=== PATIENT | female | born 1955 | race Caucasian/White ===

== ENCOUNTER 2017-04-20 07:45 | Emergency (ER) | payer OTHER, MEDICAID ==
[~2017-04-20] VITALS: Ht 157.5 cm; Wt 85.7 kg
[~2017-04-20 07:45] MED LIST: BACL-63 PO; CLOP75TA41 PO; GABA-497 PO; GLIP-116 PO; INSUINJ2 SC; MEC25T PO; MONT10TA23 PO; RANI75TA PO; ROSU20TA14 PO; SITA50TA28 PO; SUMA50TA2; TOPI25TA32 PO
[2017-04-20 08:00] VITALS: BP 153/79
[2017-04-20] MEDS ORDERED: PROMETHAZINE HCL 25 MG/ML 1ML IM ONE (09:45)
[2017-04-20] MEDS ORDERED: MORPHINE SULFATE 10 MG/ML INJ 1ML SDV IM ONE (09:45)
== END 2017-04-20 10:55 | disposition home or self-care (01) ==
LOC: EDBD 07:45 → ER 07:45
DX: S82.301A Unspecified fracture of lower end of right tibia, initial encounter for closed fracture (principal); S16.1XXA Strain of muscle, fascia and tendon at neck level, initial encounter; S29.011A Strain of muscle and tendon of front wall of thorax, initial encounter; J45.909 Unspecified asthma, uncomplicated; E11.9 Type 2 diabetes mellitus without complications; I10 Essential (primary) hypertension; G89.29 Other chronic pain; M54.5 Low back pain; Z79.4 Long term (current) use of insulin; Z79.899 Other long term (current) drug therapy; Z88.1 Allergy status to other antibiotic agents; Z88.6 Allergy status to analgesic agent; Z88.8 Allergy status to other drugs, medicaments and biological substances; V43.62XA Car passenger injured in collision with other type car in traffic accident, initial encounter; Y93.89 Activity, other specified; Y99.8 Other external cause status; Y92.410 Unspecified street and highway as the place of occurrence of the external cause
CPT/HCPCS: 71101; 72040; 73610; 96372; 99284; J2270; J2550

== ENCOUNTER 2022-08-27 09:19 | Inpatient (IN) | payer OTHER, MEDICAID ==
[~2022-08-27] VITALS: Ht 157.5 cm; Wt 72.0 kg
[~2022-08-27 09:19] MED LIST changes: -CLOP75TA41 PO; +CLOP75TA70 PO; -GABA-497 PO; +GABA300C10 PO; -GLIP-116 PO; +GLIP10TA9 PO; -TOPI25TA32 PO; +TOPI25TA43 PO
[2022-08-27 11:02] LABS: Basophils # (auto) 0.1 10 ^3/uL (0-0.2); Basophils % (auto) 0.9 % (0.0-2.0); Eosinophils # (auto) 0.3 10 ^3/uL (0-0.8); Eosinophils % (auto) 4.3 % (0.0-7.0); Hematocrit 34.7 % (36.0-46.0); Hemoglobin 11.8 g/dL (12.2-16.2); Lymphocytes # (auto) 1.3 10 ^3/uL (0.4-5.4); Lymphocytes % (auto) 19.2 % (10.0-50.0); Mean Corpuscular Hemoglobin 29.7 pg (28.0-32.0); Mean Corpuscular Hgb Conc. 33.9 g/dL (32.0-36.0); Mean Corpuscular Volume 87.5 fL (80.0-100.0); Monocytes # (auto) 0.4 10 ^3/uL (0-1.3); Monocytes % (auto) 5.8 % (0.0-12.0); Neutrophils # (auto) 4.8 10 ^3/uL (1.6-8.6); Neutrophils % (auto) 69.8 % (37.0-80.0); Red Blood Cells 3.96 10^6/uL (4.0-5.20); Red Cell Distribution Width 13.2 % (11.8-14.3); White Blood Cell 6.9 10^3/uL (4.4-10.8)
[2022-08-27 11:27] LABS: Albumin 3.7 g/dL (3.4-5.0); BUN/Creatinine Ratio 19.5; Bilirubin, Total 0.2 mg/dL (0.2-1.0); Calcium 9.7 mg/dL (8.5-10.1); Magnesium 2.5 mg/dL (1.6-2.6); Potassium 3.9 mmol/L (3.5-5.1); Total Protein 6.6 g/dL (6.4-8.2)
[2022-08-27 12:40] LABS: Urine Bacteria NONE SEEN /hpf (None Seen); Urine Blood Negative /uL (Negative); Urine Hyaline Cast FEW /lpf (0 - 2); Urine Specific Gravity 1.017 (1.001-1.035); Urine WBC <1 /hpf (0 - 5)
[2022-08-27] MEDS ORDERED: LACTATED RINGER'S 500 ML IV ONE (13:30)
[2022-08-27] MEDS ORDERED: MORPHINE SULFATE INJ 2 MG/ml SYRG IV PRN (15:45)
[2022-08-27] MEDS ORDERED: NITROGLYCERIN 0.4 MG SL TAB SL PRN (15:45)
[2022-08-27] MEDS ORDERED: DEXTROSE (50%) 50ML SYRG IV PRN (16:00)
[2022-08-27] MEDS: SODIUM CHLORIDE 0.9% 1,000 ML IV SCH (16:00)
[2022-08-27] MEDS ORDERED: ALBUTEROL SULF 2.5 MG/0.5ML(0.5%) NEB SOLN NEB PRN (16:15)
[2022-08-27] MEDS ORDERED: IPRATROPIUM BROM 0.5 MG/2.5ML INH SOL NEB PRN (16:15)
[2022-08-27 16:30] LABS: Cholesterol 165 mg/dL (< 200); HDL Cholesterol 48 mg/dL (40-59); LDL Cholesterol 94 mg/dL (< 100); Triglycerides 199 mg/dL (< 150)
[2022-08-27] MEDS: ACCU-CHEK COMFORT CURVE STRIP VI SCH ×2 (17:00→22:00)
[2022-08-27] MEDS: InsuLIN REG 1unit/0.01ml Soln (100units/ml) SC SCH ×2 (17:00→22:00)
[2022-08-27 17:48] VITALS: BP 105/59
[2022-08-27] MEDS ORDERED: ALBUTEROL SULF 2.5 MG/0.5ML(0.5%) NEB SOLN NEB SCH (18:00)
[2022-08-27] MEDS: IPRATROPIUM BROM 0.5 MG/2.5ML INH SOL NEB SCH (19:29)
[2022-08-27] MEDS ORDERED: ALBUTEROL SULF 2.5 MG/0.5ML(0.5%) NEB SOLN ONE (19:53)
[2022-08-27 20:26] LABS: Alcohol, Urine < 3.0 mg/dL (0-10); Amphetamine Screen, Urine NEGATIVE (NEGATIVE); Barbiturate Scree,Urine NEGATIVE (NEGATIVE); Benzodiazephine Screen, Urine NEGATIVE (NEGATIVE); Cannabinoid Screen, Urine NEGATIVE (NEGATIVE); Cocaine Screen, Urine NEGATIVE (NEGATIVE); Opiate Scree,Urine NEGATIVE (NEGATIVE); Phencyclidine Screen, Urine NEGATIVE (NEGATIVE)
[2022-08-27] MEDS ORDERED: LORazepam 2MG/ML-1ML VIAL IV PRN (21:00)
[2022-08-27] MEDS ORDERED: CLOPIDOGREL BISULFATE 75 MG TAB PO ONE (21:00)
[2022-08-27] MEDS ORDERED: ATORVASTATIN 20 MG TAB PO SCH (22:00)
[2022-08-27 22:55] LABS: Folate (Folic Acid) > 24.00 ng/mL (5.38-24)
[2022-08-28] MEDS ORDERED: ACETAMINOPHEN 325 MG TAB PO PRN (04:30)
[2022-08-28] MEDS: SODIUM CHLORIDE 0.9% 1,000 ML IV SCH (05:23)
[2022-08-28] MEDS: IPRATROPIUM BROM 0.5 MG/2.5ML INH SOL NEB SCH ×2 (06:28→11:28)
[2022-08-28] MEDS: ACCU-CHEK COMFORT CURVE STRIP VI SCH ×3 (06:56→18:05)
[2022-08-28] MEDS: InsuLIN REG 1unit/0.01ml Soln (100units/ml) SC SCH ×3 (06:56→18:04)
[2022-08-28] MEDS ORDERED: ENOXAPARIN SOD 30 MG/0.3 ML SYRINGE SC SCH (10:00)
[2022-08-28 11:24] LABS: BUN/Creatinine Ratio 21.1; Calcium 9.1 mg/dL (8.5-10.1); Potassium 3.5 mmol/L (3.5-5.1)
[2022-08-28 14:14] LABS: Basophils # (auto) 0.1 10 ^3/uL (0-0.2); Eosinophils # (auto) 0.2 10 ^3/uL (0-0.8); Eosinophils % (auto) 4.5 % (0.0-7.0); Hematocrit 33.8 % (36.0-46.0); Hemoglobin 11.5 g/dL (12.2-16.2); Lymphocytes # (auto) 1.3 10 ^3/uL (0.4-5.4); Lymphocytes % (auto) 26.5 % (10.0-50.0); Mean Corpuscular Hemoglobin 30.3 pg (28.0-32.0); Mean Corpuscular Hgb Conc. 33.9 g/dL (32.0-36.0); Mean Corpuscular Volume 89.3 fL (80.0-100.0); Monocytes # (auto) 0.3 10 ^3/uL (0-1.3); Red Blood Cells 3.79 10^6/uL (4.0-5.20); Red Cell Distribution Width 13.1 % (11.8-14.3)
[2022-08-28 16:00] VITALS: BP 121/78
[2022-08-29] MEDS ORDERED: ENOXAPARIN SOD 40 MG/0.4 ML SYRINGE SC SCH (10:00)
== END 2022-08-28 18:00 | disposition home or self-care (01) | DRG 149 ==
LOC: ER 09:19 → TELE 15:47
PROVIDERS: ADMIT Registered Nurse; ATTEND Internal Medicine
DX: R42 Dizziness and giddiness (principal); F02.84 Dementia in other diseases classified elsewhere, unspecified severity, with anxiety; I13.0 Hypertensive heart and chronic kidney disease with heart failure and stage 1 through stage 4 chronic kidney disease, or unspecified chronic kidney disease; N17.9 Acute kidney failure, unspecified; E78.5 Hyperlipidemia, unspecified; Z20.822 Contact with and (suspected) exposure to COVID-19; E11.22 Type 2 diabetes mellitus with diabetic chronic kidney disease; E66.9 Obesity, unspecified; Z68.29 Body mass index [BMI] 29.0-29.9, adult; F41.0 Panic disorder [episodic paroxysmal anxiety]; G30.9 Alzheimer's disease, unspecified; G43.909 Migraine, unspecified, not intractable, without status migrainosus; I50.9 Heart failure, unspecified; J44.9 Chronic obstructive pulmonary disease, unspecified; M79.7 Fibromyalgia; N18.30 Chronic kidney disease, stage 3 unspecified; Z79.4 Long term (current) use of insulin; Z79.82 Long term (current) use of aspirin; Z79.899 Other long term (current) drug therapy; Z81.8 Family history of other mental and behavioral disorders; Z88.1 Allergy status to other antibiotic agents; Z86.73 Personal history of transient ischemic attack (TIA), and cerebral infarction without residual deficits
CPT/HCPCS: 36415; 70450; 70551; 71045; 72125; 73564; 80048; 80053; 80061; 80307; 81001; 82607; 82746; 82962; 83036; 83735; 83880; 84443; 84484; 85025; 87426; 93005; 93306; 93886; 94640; G0378

== ENCOUNTER → 2022-09-20 | Outpatient (CLI) | payer OTHER, MEDICAID | END | disposition home or self-care (01) | LOC: XYW 12:23 | PROVIDERS: ATTEND Internal Medicine | DX: I35.1 Nonrheumatic aortic (valve) insufficiency (principal); I31.39 Other pericardial effusion (noninflammatory); I50.9 Heart failure, unspecified; I51.7 Cardiomegaly | CPT/HCPCS: 93306 ==

== ENCOUNTER 2022-11-06 13:22 | Inpatient (IN) | payer OTHER, MEDICAID ==
[~2022-11-06] VITALS: Ht 157.5 cm; Wt 76.0 kg
[2022-11-06 17:00] VITALS: BP 140/58
[2022-11-06] MEDS ORDERED: FENO160T8 PO (17:01)
[2022-11-06] MEDS ORDERED: SCOP1DIS9 TD (17:01)
[2022-11-06] MEDS ORDERED: FEBU40TA PO (17:01)
[2022-11-06] MEDS ORDERED: METH500T22 PO (17:01)
[2022-11-06] MEDS ORDERED: PANC3600 PO (17:01)
[2022-11-06] MEDS ORDERED: LORA0.5T20 PO (17:01)
[2022-11-06] MEDS ORDERED: INSU100I44 SC (17:01)
[2022-11-06] MEDS ORDERED: DICY20TA PO (17:01)
[2022-11-06] MEDS ORDERED: GABA300C10 PO (17:01)
[2022-11-06] MEDS ORDERED: AMIT25TA12 PO (17:01)
[2022-11-06] MEDS ORDERED: IPRIH IN (17:01)
[2022-11-06] MEDS ORDERED: NYST150P2 XX (17:01)
[2022-11-06] MEDS ORDERED: MONT-8 PO (17:01)
[2022-11-06] MEDS ORDERED: MIDO5TAB3 PO (17:01)
[2022-11-06] MEDS ORDERED: TOPI1CAP24 PO (17:01)
[2022-11-06] MEDS ORDERED: ONDA-155 PO (17:01)
[2022-11-06] MEDS ORDERED: DONE5TAB80 PO (17:01)
[2022-11-06] MEDS ORDERED: HYDR200T36 PO (17:01)
[2022-11-06] MEDS ORDERED: TRAM50TA2 PO (17:01)
[2022-11-06] MEDS ORDERED: TORS5TAB8 PO (17:01)
[2022-11-06] MEDS ORDERED: FOLI1TAB6 PO (17:01)
[2022-11-06] MEDS ORDERED: DULA1INJ SC (17:01)
[2022-11-06] MEDS ORDERED: MAGN241.4 GT (17:03)
[2022-11-06] MEDS ORDERED: TORS20TA19 PO (17:03)
[2022-11-06] MEDS ORDERED: ACET1CAP14 PO (17:03)
[2022-11-06] MEDS ORDERED: PANTOPRAZOLE 40 MG/10 ML VIAL INJ IV ONE (17:15)
[2022-11-06] MEDS ORDERED: MORPHINE SULFATE INJ 2 MG/ml SYRG IV PRN (17:15)
[2022-11-06] MEDS ORDERED: NITROGLYCERIN 0.4 MG SL TAB SL PRN (17:15)
[2022-11-06] MEDS ORDERED: DEXTROSE (50%) 50ML SYRG IV PRN (17:30)
[2022-11-06] MEDS ORDERED: InsuLIN REG 1unit/0.01ml Soln (100units/ml) SC SCH (18:00)
[2022-11-06] MEDS: ACETAMINOPHEN 325 MG TAB PO PRN (18:33)
[2022-11-06 18:35] LABS: Basophils # (auto) 0 10 ^3/uL (0-0.2); Basophils % (auto) 0.7 % (0.0-2.0); Eosinophils # (auto) 0.3 10 ^3/uL (0-0.8); Eosinophils % (auto) 4.7 % (0.0-7.0); Hematocrit 38.6 % (36.0-46.0); Hemoglobin 12.6 g/dL (12.2-16.2); Lymphocytes # (auto) 1.6 10 ^3/uL (0.4-5.4); Lymphocytes % (auto) 28.1 % (10.0-50.0); Mean Corpuscular Hemoglobin 29.2 pg (28.0-32.0); Mean Corpuscular Hgb Conc. 32.7 g/dL (32.0-36.0); Mean Corpuscular Volume 89.1 fL (80.0-100.0); Monocytes # (auto) 0.5 10 ^3/uL (0-1.3); Monocytes % (auto) 7.9 % (0.0-12.0); Neutrophils # (auto) 3.3 10 ^3/uL (1.6-8.6); Neutrophils % (auto) 58.6 % (37.0-80.0); Nucleated Red Blood Cells % 0.1 %; Red Blood Cells 4.33 10^6/uL (4.0-5.20); Red Cell Distribution Width 13.2 % (11.8-14.3); White Blood Cell 5.7 10^3/uL (4.4-10.8)
[2022-11-06 19:04] LABS: Magnesium 2.6 mg/dL (1.6-2.6); Potassium 3.9 mmol/L (3.5-5.1)
[2022-11-06 19:07] LABS: BUN/Creatinine Ratio 21.2 (10.0-20.0); Bilirubin, Total 0.2 mg/dL (0.2-1.0); Total Protein 7.1 g/dL (6.4-8.2)
[2022-11-06 19:08] LABS: Cholesterol 148 mg/dL (< 200)
[2022-11-06 19:11] LABS: HDL Cholesterol 52 mg/dL (40-59); LDL Cholesterol 74 mg/dL (< 100); Triglycerides 143 mg/dL (< 150)
[2022-11-06] MEDS ORDERED: ACETAMINOPHEN 500 MG TAB PO SCH (19:30)
[2022-11-06] MEDS: LACTATED RINGER'S 1,000 ML IV SCH (19:39)
[2022-11-06] MEDS: ACCU-CHEK COMFORT CURVE STRIP VI SCH (19:39)
[2022-11-06 20:17] LABS: INR 0.99 (0.9-1.15); Partial Thromboplastin Time 24.2 sec (24.6-33.4)
[2022-11-06] MEDS: ACETAMINOPHEN 500 MG TAB PO SCH (21:46)
[2022-11-06 22:00] VITALS: BP 113/40
[2022-11-07] VITALS (10 sets, daily range): BP systolic 120–144; BP diastolic 57–69
[2022-11-07] MEDS: ACCU-CHEK COMFORT CURVE STRIP VI SCH ×4 (00:45→17:07)
[2022-11-07] MEDS: GABAPENTIN 300 MG CAP PO SCH ×5 (00:50→22:09)
[2022-11-07] MEDS: ACETAMINOPHEN 500 MG TAB PO SCH ×4 (06:05→22:09)
[2022-11-07 06:19] LABS: Basophils # (auto) 0.1 10 ^3/uL (0-0.2); Basophils % (auto) 1.1 % (0.0-2.0); Eosinophils # (auto) 0.3 10 ^3/uL (0-0.8); Eosinophils % (auto) 5.1 % (0.0-7.0); Hematocrit 36.5 % (36.0-46.0); Hemoglobin 12.1 g/dL (12.2-16.2); Lymphocytes # (auto) 1.3 10 ^3/uL (0.4-5.4); Lymphocytes % (auto) 24.3 % (10.0-50.0); Mean Corpuscular Hemoglobin 29.8 pg (28.0-32.0); Mean Corpuscular Hgb Conc. 33.2 g/dL (32.0-36.0); Mean Corpuscular Volume 89.5 fL (80.0-100.0); Monocytes # (auto) 0.4 10 ^3/uL (0-1.3); Neutrophils # (auto) 3.5 10 ^3/uL (1.6-8.6); Neutrophils % (auto) 62.5 % (37.0-80.0); Red Blood Cells 4.08 10^6/uL (4.0-5.20); Red Cell Distribution Width 13.2 % (11.8-14.3); White Blood Cell 5.5 10^3/uL (4.4-10.8)
[2022-11-07 06:25] LABS: Potassium 4.2 mmol/L (3.5-5.1)
[2022-11-07 06:35] LABS: Albumin 3.8 g/dL (3.4-5.0); Bilirubin, Total 0.3 mg/dL (0.2-1.0); Calcium 9.8 mg/dL (8.5-10.1); Total Protein 6.7 g/dL (6.4-8.2)
[2022-11-07] MEDS ORDERED: ONDANSETRON HCL 4 MG/2 ML VIAL IV PRN (07:00)
[2022-11-07] MEDS: ACETAMINOPHEN 325 MG TAB PO PRN (08:45)
[2022-11-07] MEDS: PANTOPRAZOLE 40 MG/10 ML VIAL INJ IV SCH (08:46)
[2022-11-07] MEDS: LACTATED RINGER'S 1,000 ML IV SCH (09:00)
[2022-11-07] MEDS ORDERED: BUPIVACAINE HCL 50 ML ONE (10:57)
[2022-11-07] MEDS ORDERED: MIDAZOLAM HCL 2MG/2ML 2ml VIAL (1mg/ml) ONE ×2 (11:10→11:27)
[2022-11-07] MEDS ORDERED: fentaNYL CITRATE 100 MCG/2 ML VL ONE (11:10)
[2022-11-07] MEDS ORDERED: HYDROmorphone HCL 2 MG/ML VL/or syr ONE (11:27)
[2022-11-07 14:12] LABS: Basophils # (auto) 0.1 10 ^3/uL (0-0.2); Basophils % (auto) 1.2 % (0.0-2.0); Eosinophils # (auto) 0.3 10 ^3/uL (0-0.8); Eosinophils % (auto) 4.8 % (0.0-7.0); Hemoglobin 12.5 g/dL (12.2-16.2); Lymphocytes # (auto) 1.5 10 ^3/uL (0.4-5.4); Lymphocytes % (auto) 26.5 % (10.0-50.0); Mean Corpuscular Hemoglobin 29.6 pg (28.0-32.0); Mean Corpuscular Hgb Conc. 32.1 g/dL (32.0-36.0); Mean Corpuscular Volume 92.4 fL (80.0-100.0); Monocytes # (auto) 0.4 10 ^3/uL (0-1.3); Monocytes % (auto) 7.4 % (0.0-12.0); Neutrophils # (auto) 3.3 10 ^3/uL (1.6-8.6); Neutrophils % (auto) 60.1 % (37.0-80.0); Nucleated Red Blood Cells % 0.3 %; Red Blood Cells 4.22 10^6/uL (4.0-5.20); Red Cell Distribution Width 13.3 % (11.8-14.3); White Blood Cell 5.5 10^3/uL (4.4-10.8)
[2022-11-07 14:41] LABS: Albumin 3.6 g/dL (3.4-5.0); Calcium 9.5 mg/dL (8.5-10.1); Potassium 4.2 mmol/L (3.5-5.1)
[2022-11-07 14:44] LABS: BUN/Creatinine Ratio 20.2 (10.0-20.0); Bilirubin, Total 0.2 mg/dL (0.2-1.0); Total Protein 6.8 g/dL (6.4-8.2)
[2022-11-07 17:22] LABS: Urine Bacteria NONE SEEN /hpf (None Seen); Urine Blood Negative /uL (Negative); Urine Specific Gravity 1.014 (1.001-1.035); Urine WBC <1 /hpf (0 - 5)
[2022-11-08] MEDS: ACCU-CHEK COMFORT CURVE STRIP VI SCH ×4 (01:14→17:47)
[2022-11-08 05:00] VITALS: BP 120/63
[2022-11-08] MEDS: ACETAMINOPHEN 500 MG TAB PO SCH ×4 (05:58→21:54)
[2022-11-08] MEDS: GABAPENTIN 300 MG CAP PO SCH ×4 (05:58→21:53)
[2022-11-08 06:34] LABS: Basophils # (auto) 0 10 ^3/uL (0-0.2); Basophils % (auto) 0.8 % (0.0-2.0); Eosinophils # (auto) 0.3 10 ^3/uL (0-0.8); Eosinophils % (auto) 4.6 % (0.0-7.0); Hematocrit 36.4 % (36.0-46.0); Hemoglobin 12.1 g/dL (12.2-16.2); Lymphocytes # (auto) 1.2 10 ^3/uL (0.4-5.4); Lymphocytes % (auto) 21.7 % (10.0-50.0); Mean Corpuscular Hemoglobin 30.1 pg (28.0-32.0); Mean Corpuscular Hgb Conc. 33.3 g/dL (32.0-36.0); Mean Corpuscular Volume 90.3 fL (80.0-100.0); Monocytes # (auto) 0.5 10 ^3/uL (0-1.3); Monocytes % (auto) 8.7 % (0.0-12.0); Neutrophils # (auto) 3.6 10 ^3/uL (1.6-8.6); Neutrophils % (auto) 64.2 % (37.0-80.0); Nucleated Red Blood Cells % 0.1 %; Red Blood Cells 4.03 10^6/uL (4.0-5.20); Red Cell Distribution Width 12.9 % (11.8-14.3); White Blood Cell 5.6 10^3/uL (4.4-10.8)
[2022-11-08 07:01] LABS: Calcium 9.6 mg/dL (8.5-10.1); Magnesium 2.3 mg/dL (1.6-2.6); Potassium 4.2 mmol/L (3.5-5.1)
[2022-11-08 08:00] VITALS: BP 134/59
[2022-11-08 08:50] VITALS: BP 134/59
[2022-11-08] MEDS: PANTOPRAZOLE 40 MG/10 ML VIAL INJ IV SCH (09:16)
[2022-11-08 13:00] VITALS: BP 122/53
[2022-11-08] MEDS ORDERED: TORS20TA19 PO (13:07)
[2022-11-08] MEDS ORDERED: AMIT25TA12 PO (13:07)
[2022-11-08] MEDS ORDERED: METH500T22 PO (13:07)
[2022-11-08] MEDS ORDERED: IPRIH INH (13:07)
[2022-11-08] MEDS ORDERED: GABA300C10 PO ×3 (13:07)
[2022-11-08] MEDS ORDERED: UBRO100T2 PO (13:07)
[2022-11-08] MEDS ORDERED: FENO134C16 PO (13:07)
[2022-11-08] MEDS ORDERED: PANC3600 PO (13:07)
[2022-11-08] MEDS ORDERED: TRIA0.1P17 TOP (13:07)
[2022-11-08] MEDS ORDERED: VENL150C58 PO (13:07)
[2022-11-08] MEDS ORDERED: IPRA0.00 IN (13:07)
[2022-11-08] MEDS ORDERED: MID10T PO (13:07)
[2022-11-08] MEDS ORDERED: LORA-622 PO (13:07)
[2022-11-08] MEDS ORDERED: PROBCAP12 PO (13:07)
[2022-11-08] MEDS ORDERED: POM PO (13:57)
[2022-11-08] MEDS ORDERED: POM TOP (13:57)
[2022-11-08 16:48] VITALS: BP 143/58
[2022-11-08] MEDS ORDERED: MECL-111 PO (17:13)
[2022-11-08] MEDS: DICLOFENAC SODIUM 1% GEL TOP SCH ×2 (18:00→21:54)
[2022-11-08] MEDS: AMITRIPTYLINE HCL 25 MG TAB PO SCH (21:53)
[2022-11-08 22:00] VITALS: BP 148/61
[2022-11-09] MEDS: ACCU-CHEK COMFORT CURVE STRIP VI SCH ×5 (00:08→23:52)
[2022-11-09 05:00] VITALS: BP 131/53
[2022-11-09] MEDS: DICLOFENAC SODIUM 1% GEL TOP SCH ×4 (06:01→21:50)
[2022-11-09] MEDS: ACETAMINOPHEN 500 MG TAB PO SCH ×4 (06:01→21:48)
[2022-11-09] MEDS: GABAPENTIN 300 MG CAP PO SCH ×4 (06:01→21:48)
[2022-11-09 08:55] VITALS: BP 134/55
[2022-11-09] MEDS: PANTOPRAZOLE 40 MG/10 ML VIAL INJ IV SCH (10:22)
[2022-11-09] MEDS: QULIPTA 60 MG PO SCH (10:23)
[2022-11-09] MEDS: hydrOXYchloroQUINE SULFATE 200 MG TAB PO SCH (10:24)
[2022-11-09] MEDS: VENLAFAXINE HCL 37.5mg XR cap PO SCH (10:25)
[2022-11-09] MEDS: ALPRAZolam 0.5 MG TAB PO PRN ×2 (10:26→23:45)
[2022-11-09 12:49] VITALS: BP 136/56
[2022-11-09 17:11] VITALS: BP 134/59
[2022-11-09] MEDS: CREON DR 36,000 UNIT CAPSULE PO SCH (18:00)
[2022-11-09] MEDS: AMITRIPTYLINE HCL 25 MG TAB PO SCH (21:48)
[2022-11-09 22:00] VITALS: BP 130/53
[2022-11-09] MEDS ORDERED: CREON DR 36,000 UNIT CAPSULE PO SCH (22:00)
[2022-11-10 05:00] VITALS: BP 131/48
[2022-11-10] MEDS: GABAPENTIN 300 MG CAP PO SCH ×2 (05:26→11:50)
[2022-11-10] MEDS: ACETAMINOPHEN 500 MG TAB PO SCH ×2 (05:26→11:50)
[2022-11-10] MEDS: DICLOFENAC SODIUM 1% GEL TOP SCH ×2 (05:27→11:50)
[2022-11-10] MEDS: ACCU-CHEK COMFORT CURVE STRIP VI SCH ×2 (05:27→11:50)
[2022-11-10 08:10] VITALS: BP 123/57
[2022-11-10] MEDS: CREON DR 36,000 UNIT CAPSULE PO SCH ×2 (09:26→11:50)
[2022-11-10] MEDS: hydrOXYchloroQUINE SULFATE 200 MG TAB PO SCH (09:27)
[2022-11-10] MEDS: QULIPTA 60 MG PO SCH (09:27)
[2022-11-10] MEDS: PANTOPRAZOLE 40 MG/10 ML VIAL INJ IV SCH (09:27)
[2022-11-10] MEDS: VENLAFAXINE HCL 37.5mg XR cap PO SCH (09:32)
[2022-11-10 12:15] VITALS: BP 127/62
== END 2022-11-10 13:30 | disposition short-term general hospital (02) | DRG 315 ==
LOC: XYW 13:22 → TELE-WESTW 15:17
PROVIDERS: ADMIT Internal Medicine; ATTEND Internal Medicine
PROC: 0W9D3ZZ Drainage of Pericardial Cavity, Percutaneous Approach (ICD-10-PCS; principal; 2022-11-07)
DX: I30.9 Acute pericarditis, unspecified (principal); I13.0 Hypertensive heart and chronic kidney disease with heart failure and stage 1 through stage 4 chronic kidney disease, or unspecified chronic kidney disease; I50.32 Chronic diastolic (congestive) heart failure; E78.5 Hyperlipidemia, unspecified; J44.9 Chronic obstructive pulmonary disease, unspecified; F41.9 Anxiety disorder, unspecified; F32.A Depression, unspecified; M10.9 Gout, unspecified; F03.90 Unspecified dementia, unspecified severity, without behavioral disturbance, psychotic disturbance, mood disturbance, and anxiety; M06.9 Rheumatoid arthritis, unspecified; E66.9 Obesity, unspecified; E11.22 Type 2 diabetes mellitus with diabetic chronic kidney disease; N18.32 Chronic kidney disease, stage 3b; Z79.4 Long term (current) use of insulin; Z88.0 Allergy status to penicillin; Z88.1 Allergy status to other antibiotic agents; Z88.6 Allergy status to analgesic agent; Z88.5 Allergy status to narcotic agent; Z88.8 Allergy status to other drugs, medicaments and biological substances; Z88.2 Allergy status to sulfonamides; Z82.49 Family history of ischemic heart disease and other diseases of the circulatory system; Z82.5 Family history of asthma and other chronic lower respiratory diseases; Z83.3 Family history of diabetes mellitus; Z68.30 Body mass index [BMI] 30.0-30.9, adult
CPT/HCPCS: 33016; 36415; 71045; 80048; 80053; 80061; 81001; 82962; 83036; 83605; 83735; 83880; 84443; 85025; 85610; 85730; 86850; 86900; 86901; 93306; 99152; 99153; C9113; G0378; J2250; J3490

== ENCOUNTER 2022-11-25 13:40 | Inpatient (IN) | payer OTHER, MEDICAID ==
[~2022-11-25] VITALS: Ht 162.6 cm; Wt 75.0 kg
[~2022-11-25 13:40] MED LIST changes: +ACET1CAP14 PO; +AMIT25TA20 PO; +DICY20TA PO; +DONE5TAB80 PO; +DULA1INJ SC; +FEBU40TA PO; +FENO134C16 PO; +FOLI-119 PO; +GABA-1250 PO; -GABA300C10 PO; +HYDR200T36 PO; +INSU100I54 SC; +IPRA0.00 IN; +IPRIH INH; +LORA-1121 PO; +LORA-622 PO; +MAGN241.4 GT; +MECL-126 PO; +METH-1181 PO; +MID10T PO; +MONT-8 PO; +NYST150P2 XX; +ONDA-155 PO; +PANC3600 PO; +POM PO; +POM TOP; +PROBCAP12 PO; +SCOP1DIS9 TD; +TOPI1CAP24 PO; +TORS20TA19 PO; +TRAM50TA2 PO; +TRIA0.1P2 TOP; +UBRO100T2 PO; +VENL150C58 PO
[2022-11-25] MEDS ORDERED: NITROGLYCERIN 0.4 MG SL TAB SL PRN ×2 (14:00→19:15)
[2022-11-25 14:20] LABS: Basophils # (auto) 0 10 ^3/uL (0-0.2); Basophils % (auto) 0.6 % (0.0-2.0); Eosinophils # (auto) 0.2 10 ^3/uL (0-0.8); Eosinophils % (auto) 2.7 % (0.0-7.0); Hematocrit 37.3 % (36.0-46.0); Hemoglobin 12.4 g/dL (12.2-16.2); Lymphocytes # (auto) 1.6 10 ^3/uL (0.4-5.4); Lymphocytes % (auto) 22.3 % (10.0-50.0); Mean Corpuscular Hemoglobin 29.1 pg (28.0-32.0); Mean Corpuscular Hgb Conc. 33.1 g/dL (32.0-36.0); Mean Corpuscular Volume 87.8 fL (80.0-100.0); Monocytes # (auto) 0.6 10 ^3/uL (0-1.3); Monocytes % (auto) 7.6 % (0.0-12.0); Neutrophils # (auto) 4.9 10 ^3/uL (1.6-8.6); Neutrophils % (auto) 66.8 % (37.0-80.0); Nucleated Red Blood Cells % 0.1 %; Red Blood Cells 4.25 10^6/uL (4.0-5.20); Red Cell Distribution Width 12.8 % (11.8-14.3); White Blood Cell 7.3 10^3/uL (4.4-10.8)
[2022-11-25 14:24] LABS: Potassium 3.6 mmol/L (3.5-5.1)
[2022-11-25 14:34] LABS: Albumin 4.1 g/dL (3.4-5.0); BUN/Creatinine Ratio 17.9 (10.0-20.0); Bilirubin, Total 0.3 mg/dL (0.2-1.0); Calcium 9.9 mg/dL (8.5-10.1); Magnesium 2.9 mg/dL (1.6-2.6); Total Protein 6.8 g/dL (6.4-8.2)
[2022-11-25 14:40] LABS: INR 0.97 (0.9-1.15); Partial Thromboplastin Time 25.8 sec (24.6-33.4)
[2022-11-25] MEDS ORDERED: ASPirin 325 MG TAB PO ONE (17:00)
[2022-11-25] MEDS ORDERED: ENOXAPARIN SOD 40 MG/0.4 ML SYRINGE SC SCH (19:15)
[2022-11-25] MEDS ORDERED: DEXTROSE (50%) 50ML SYRG IV PRN (19:15)
[2022-11-25] MEDS ORDERED: HYDROcodone-ACET 5/325MG TAB PO PRN (19:15)
[2022-11-25] MEDS ORDERED: MORPHINE SULFATE INJ 2 MG/ml SYRG IV PRN ×2 (19:15)
[2022-11-25] MEDS ORDERED: IPRATROPIUM BROM 0.5 MG/2.5ML INH SOL NEB PRN (19:30)
[2022-11-25] MEDS ORDERED: ALBUTEROL SULF 2.5 MG/0.5ML(0.5%) NEB SOLN NEB PRN (19:30)
[2022-11-25 19:31] VITALS: BP 120/58
[2022-11-25] MEDS: ACCU-CHEK COMFORT CURVE STRIP VI SCH (22:00)
[2022-11-25] MEDS: ACETAMINOPHEN 325 MG TAB PO PRN (22:57)
[2022-11-25] MEDS: SODIUM CHLORIDE 0.9% 1,000 ML IV SCH (22:59)
[2022-11-25] MEDS: InsuLIN REG 1unit/0.01ml Soln (100units/ml) SC SCH (23:10)
[2022-11-26 06:10] LABS: Basophils # (auto) 0 10 ^3/uL (0-0.2); Basophils % (auto) 0.6 % (0.0-2.0); Eosinophils # (auto) 0.3 10 ^3/uL (0-0.8); Eosinophils % (auto) 3.8 % (0.0-7.0); Hematocrit 37.5 % (36.0-46.0); Hemoglobin 12.6 g/dL (12.2-16.2); Lymphocytes # (auto) 1.6 10 ^3/uL (0.4-5.4); Lymphocytes % (auto) 23.6 % (10.0-50.0); Mean Corpuscular Hemoglobin 29.6 pg (28.0-32.0); Mean Corpuscular Hgb Conc. 33.7 g/dL (32.0-36.0); Mean Corpuscular Volume 87.6 fL (80.0-100.0); Monocytes # (auto) 0.5 10 ^3/uL (0-1.3); Monocytes % (auto) 7.6 % (0.0-12.0); Neutrophils # (auto) 4.4 10 ^3/uL (1.6-8.6); Neutrophils % (auto) 64.4 % (37.0-80.0); Nucleated Red Blood Cells % 0.1 %; Red Blood Cells 4.28 10^6/uL (4.0-5.20); Red Cell Distribution Width 13.2 % (11.8-14.3); White Blood Cell 6.9 10^3/uL (4.4-10.8)
[2022-11-26] MEDS: ACCU-CHEK COMFORT CURVE STRIP VI SCH ×2 (06:32→11:33)
[2022-11-26] MEDS: InsuLIN REG 1unit/0.01ml Soln (100units/ml) SC SCH ×2 (06:32→11:33)
[2022-11-26] MEDS: SODIUM CHLORIDE 0.9% 1,000 ML IV SCH (06:33)
[2022-11-26] MEDS: IPRATROPIUM BROM 0.5 MG/2.5ML INH SOL NEB SCH ×3 (06:52→12:06)
[2022-11-26] MEDS: ALBUTEROL SULF 2.5 MG/0.5ML(0.5%) NEB SOLN NEB SCH ×2 (06:52)
[2022-11-26] MEDS: ACETAMINOPHEN 325 MG TAB PO PRN (09:39)
[2022-11-26] MEDS ORDERED: COLCHICINE 0.6 MG CAP PO SCH (10:00)
[2022-11-26] MEDS ORDERED: PANTOPRAZOLE 40 MG/10 ML VIAL INJ IV SCH (10:00)
[2022-11-26 10:19] LABS: Potassium 3.6 mmol/L (3.5-5.1)
[2022-11-26 10:28] LABS: Albumin 4.1 g/dL (3.4-5.0); BUN/Creatinine Ratio 19.4 (10.0-20.0); Bilirubin, Total 0.3 mg/dL (0.2-1.0); Calcium 9.4 mg/dL (8.5-10.1); Total Protein 6.8 g/dL (6.4-8.2)
[2022-11-26 13:00] VITALS: BP 123/56
== END 2022-11-26 13:35 | disposition home or self-care (01) | DRG 315 ==
LOC: ER 13:40 → EDBD 13:40 → TELE 19:15
PROVIDERS: ADMIT Registered Nurse; ATTEND Internal Medicine
DX: I31.9 Disease of pericardium, unspecified (principal); I13.2 Hypertensive heart and chronic kidney disease with heart failure and with stage 5 chronic kidney disease, or end stage renal disease; I24.9 Acute ischemic heart disease, unspecified; N17.9 Acute kidney failure, unspecified; N18.5 Chronic kidney disease, stage 5; M06.9 Rheumatoid arthritis, unspecified; J44.9 Chronic obstructive pulmonary disease, unspecified; E11.22 Type 2 diabetes mellitus with diabetic chronic kidney disease; Z88.8 Allergy status to other drugs, medicaments and biological substances; Z82.49 Family history of ischemic heart disease and other diseases of the circulatory system; Z82.5 Family history of asthma and other chronic lower respiratory diseases; Z83.3 Family history of diabetes mellitus; Z88.0 Allergy status to penicillin; Z88.2 Allergy status to sulfonamides; Z88.5 Allergy status to narcotic agent; Z91.018 Allergy to other foods
CPT/HCPCS: 36415; 71045; 80053; 82962; 83735; 83880; 84484; 85025; 85610; 85730; 93005; 93306; 94640; 96361; 96372; 96374; C9113; G0378; J1815

== ENCOUNTER 2023-04-17 07:07 | Day surgery (SDC) | payer OTHER, MEDICAID ==
[2023-04-16 10:32] LABS: Basophils # (auto) 0.1 10 ^3/uL (0-0.2); Eosinophils # (auto) 0.3 10 ^3/uL (0-0.8); Eosinophils % (auto) 5.7 % (0.0-7.0); Hematocrit 34.2 % (36.0-46.0); Hemoglobin 11.2 g/dL (12.2-16.2); Lymphocytes # (auto) 1.2 10 ^3/uL (0.4-5.4); Lymphocytes % (auto) 20.1 % (10.0-50.0); Mean Corpuscular Hemoglobin 29.1 pg (28.0-32.0); Mean Corpuscular Hgb Conc. 32.8 g/dL (32.0-36.0); Mean Corpuscular Volume 88.8 fL (80.0-100.0); Monocytes # (auto) 0.6 10 ^3/uL (0-1.3); Monocytes % (auto) 9.5 % (0.0-12.0); Neutrophils # (auto) 3.9 10 ^3/uL (1.6-8.6); Neutrophils % (auto) 63.7 % (37.0-80.0); Red Blood Cells 3.85 10^6/uL (4.0-5.20); White Blood Cell 6.1 10^3/uL (4.4-10.8)
[2023-04-16 10:48] LABS: INR 1.03 (0.9-1.15); Partial Thromboplastin Time 26.5 SEC (24.5-34.5); Prothrombin Time 10.8 sec (9.3-11.8)
[2023-04-16 10:59] LABS: Alanine Aminotransferase 16 U/L (7-40); Albumin 4.4 g/dL (3.2-4.8); Alkaline Phosphatase 53 U/L (46-116); Anion Gap 7 (5-15); Aspartate Aminotransferase 15 U/L (13-40); BUN/Creatinine Ratio 24.6 (10.0-20.0); Bilirubin, Total 0.3 mg/dL (0.2-1.0); Blood Urea Nitrogen 51 mg/dL (9-23); Calcium 9.8 mg/dL (8.5-10.1); Carbon Dioxide 28 mmol/L (20-30); Chloride 104 mmol/L (98-107); Glucose 161 mg/dL (74-106); Potassium 4.8 mmol/L (3.5-5.1); Sodium 139 mmol/L (136-145)
[~2023-04-17] VITALS: Ht 157.5 cm; Wt 73.5 kg
[2023-04-17] VITALS (14 sets, daily range): BP systolic 115–133; BP diastolic 43–69; PULSE 43–69; RESP 11–15; TEMP 97.8; O2SAT 90–100
[~2023-04-17 07:07] MED LIST changes: -CLOP75TA70 PO; -DONE5TAB80 PO; -GLIP10TA9 PO; -INSUINJ2 SC; -IPRA0.00 IN; -MEC25T PO; -MECL-126 PO; -METH-1181 PO; -MONT10TA23 PO; -POM PO; -POM TOP; -RANI75TA PO; -ROSU20TA14 PO; -SITA50TA28 PO; -SUMA50TA2; -TOPI1CAP24 PO; -TOPI25TA43 PO; -UBRO100T2 PO
[2023-04-17] MEDS ORDERED: LIDOCAINE 2%HCL (LOCAL ANESTH.) INJ 20ML MDV ONE (07:54)
[2023-04-17] MEDS ORDERED: IODIXANOL 320MG/ML 100ML BTL IV ONE ×2 (07:54→09:22)
[2023-04-17] MEDS ORDERED: MIDAZOLAM HCL 2MG/2ML 2ml VIAL (1mg/ml) ONE (08:36)
[2023-04-17] MEDS ORDERED: fentaNYL CITRATE 100 MCG/2 ML VL ONE (08:36)
[2023-04-17] MEDS ORDERED: ANGIOMAX 250 MG VIAL IV ONE (08:36)
[2023-04-17] MEDS ORDERED: SODIUM CHL 0.9% 50 ML ONE (08:37)
[2023-04-17] MEDS ORDERED: BUPIVACAINE 0.5% P/F INJ 10 ML VIAL ONE (08:48)
[2023-04-17] MEDS ORDERED: ATROPINE SULF 1 MG/10ml SYR ONE (09:33)
[2023-04-17] MEDS ORDERED: CLOPIDOGREL 300 MG TAB ONE (09:41)
[2023-04-17] MEDS ORDERED: APIXABAN 2.5 MG TAB PO STA (10:08)
[2023-04-17] MEDS ORDERED: ACETAMINOPHEN 500 MG TAB PO PRN (10:45)
[2023-04-17] MEDS ORDERED: PANT40TA2 PO (14:25)
[2023-04-17] MEDS ORDERED: APIX2.5T PO (14:25)
[2023-04-17] MEDS ORDERED: CLOP75TA28 PO (14:25)
== END 2023-04-17 16:40 | disposition home or self-care (01) ==
LOC: CATH 07:07
PROVIDERS: ATTEND Student in an Organized Health Care Education/Training Program
DX: I25.10 Atherosclerotic heart disease of native coronary artery without angina pectoris (principal); R06.02 Shortness of breath; I25.9 Chronic ischemic heart disease, unspecified; R07.89 Other chest pain; Z88.8 Allergy status to other drugs, medicaments and biological substances; Z79.01 Long term (current) use of anticoagulants; Z79.899 Other long term (current) drug therapy; I31.9 Disease of pericardium, unspecified; I31.39 Other pericardial effusion (noninflammatory)
CPT/HCPCS: 36415; 80053; 85025; 85610; 85730; 93460; C1725; C1757; C1769; C1874; C1887; C1894; C9600; J0583; J1644; J2250; J3010; J3490; Q9967; 99152; 99153

== ENCOUNTER → 2024-03-16 | Outpatient (CLI) | payer OTHER, MEDICAID ==
[~2024-03-16] MED LIST changes: +APIX2.5T PO; +CLOP75TA28 PO; +PANT40TA2 PO
[2024-03-16 09:05] LABS: Chloride 98 mmol/L (98-107); Potassium 3.9 mmol/L (3.5-5.1); Sodium 138 mmol/L (136-145)
[2024-03-16 09:06] LABS: Anion Gap 9 (5-15); Carbon Dioxide 31 mmol/L (20-31)
[2024-03-16 09:07] LABS: Calcium 10.9 mg/dL (8.7-10.4)
[2024-03-16 09:11] LABS: BUN/Creatinine Ratio 23.2 (10.0-20.0); Blood Urea Nitrogen 51 mg/dL (9-23); Glucose 274 mg/dL (74-106)
== END | disposition home or self-care (01) ==
LOC: LAB 08:10
PROVIDERS: ATTEND Internal Medicine
DX: D68.69 Other thrombophilia (principal); I25.9 Chronic ischemic heart disease, unspecified; N18.4 Chronic kidney disease, stage 4 (severe); E78.5 Hyperlipidemia, unspecified
CPT/HCPCS: 36415; 80048

== ENCOUNTER 2024-05-26 08:44 | Inpatient (IN) | payer OTHER, MEDICAID ==
[~2024-05-26] VITALS: Ht 157.5 cm; Wt 84.5 kg
[2024-05-26] VITALS (16 sets, daily range): BP systolic 102–130; BP diastolic 56–81; PULSE 74–90; RESP 11–21; TEMP 98.2–98.7; O2SAT 2–100
[~2024-05-26 08:44] MED LIST changes: +ALUM1SUS16 PO; +DICL-545 EX; -DICY20TA PO; +DOCU-94 PO; +DULA0.5I SC; +EZET10TA22 PO; +FURO1TAB31 PO; +GUAI600T78 PO; +HYDR25TA88 PO; +LORA-1123 PO; -MAGN241.4 GT; +METH-1181 PO; -MID10T PO; -NYST150P2 XX; +PANC3600 OR; -PANC3600 PO; -PROBCAP12 PO; +ROSU20TA14 PO; +VITA-89 PO; +ZINC50TA7 PO
[2024-05-26] MEDS: IODIXANOL 320MG/ML 100ML BTL IV ONE (09:49)
[2024-05-26] MEDS: HEPARIN IN NS 1000Units/500mL 1,500 ML ONE (09:49)
[2024-05-26] MEDS: VERAPAMIL 2.5MG/ML INJ 2ML VIAL IV ONE (10:20)
[2024-05-26] MEDS: ANGIOMAX 250 MG VIAL IV ONE (10:20)
[2024-05-26] MEDS: HEPARIN SODIUM (PORCINE) 5000 UNITS/ML 1ML VIAL ONE (10:20)
[2024-05-26] MEDS: MIDAZOLAM HCL 2MG/2ML 2ml VIAL (1mg/ml) ONE (10:21)
[2024-05-26] MEDS: LIDOCAINE 2%HCL (LOCAL ANESTH.) INJ 20ML MDV ONE (10:21)
[2024-05-26] MEDS: SODIUM CHL 0.9% 50 ML ONE (10:21)
[2024-05-26] MEDS: fentaNYL CITRATE 100 MCG/2 ML VL ONE (10:21)
--- NOTE | 2024-05-26 12:04 | DVHOP2 ---
Operative Report -Cardiology Report Details Date: 05/26/24 Preop Diagnosis: Shortness of breath culminating to NYHA class 3, worsening of the left ventricular systolic function had a stent implant done a year ago Postop Diagnosis: There is severe InStent restenosis of the distal part of the LAD stent. Patient treated with a PTCA followed by a single drug-eluting stent to that segment with excellent final result. Surgeon: Vincenzo Norwood MD Anesthesiologist: Conscious sedation using25 mcg of fentanyl as well as a mg IV midazolam. It was given under the direct supervision of myself in the presence of the attending nurses. Patient was monitored for total of 40 minutes without obvious complication. Anesthesia: Local Consent: The patient was informed of the risks and benefits of the procedure. These include but are not limited to complications of anesthesia, postoperative infection, incomplete relief of symptoms, recurrence of symptoms, damage to blood vessels, nerves and tendons, deep venous thrombosis, pulmonary embolism and possible need for repeat surgery in the future. Indications for Surgery: This is a 68-year-old lady with a history of diabetes mellitus type 2, hypertension, hyperlipidemia, history of recurrent pericarditis, history paroxysmal atrial fibrillation, history of ischemic cardiomyopathy with a stent implant to the LAD in 2022. He she presented to the hospital with a worsening symptoms of shortness of breath culminating two [place] heart Association class three. She also has read drop in the ejection fraction from 50% to 28%. Patient was booked today for coronary angiography to rule out InStent stenosis and a stent thrombosis. Patient admitted having to stop her antiplatelet anticoagulation for at least two weeks for dental work. Without consulting with the primary hookman. She was booked today for coronary angiography to rule out any problem with the stent to the LAD or if she has progression of her underlying coronary artery disease. Name of Procedure Performed 1. Left heart catheterization with left ventricular end-diastolic pressure measurement 2. Selective right and left coronary angiography utilizing right transradial approach. 3. PTCA followed by PCI with single drug-eluting stent to distal part of the mid LAD stent due to severe InStent restenosis of the stent and 90%. 4. Conscious sedation using25 mcg of fentanyl as well as a mg of midazolam. Procedure Details Procedure Details: Procedure note and vascular access: After informed consent was obtained, risks, benefits, complications, and alternatives were discussed in details with the patient who agrees to have the procedure done. At the beginning of the procedure, the right wrist and the right coronary artery were prepped and draped in the regular sterile fashion. Patient received conscious sedation with25 mcg of fentanyl as well as a mg midazolam. No xylocaine was used due to allergy to xylocaine a six Syrian sheath was placed without difficulty using modified Seldinger technique. A cocktail of 2.5 mg of verapamil as well as 100 mcg of nitroglycerin were given intra-arterial to prevent vasospasm. Total of 3000 heparin was given once the catheter across the aortic arch. Findings were as follows: 1. Left heart catheterization with left ventricular end-diastolic pressure measurement: With the help of a tiger five Syrian catheter as well as a J-tip wire we were able to cross the aortic valve and measured left ventricular end-diastolic pressure which was elevated at 19 mm of mercury. There was no gradient across the aortic valve on the pullback. 2. Selective right and left coronary angiography utilizing right transradial approach: 1. The right coronary artery comes off the right coronary cusp it is a large dominant system it bifurcated distally into large posterior descending artery and medium-sized posterolateral branch. No significant coronary artery disease was noted. 2. Left main comes off left coronary cusp it is a large dominant system is widely patent bifurcates into large left anterior descending artery as well as a medium-sized left circumflex vessel. 3. Left anterior descending artery it is a large vessel with transapical route. It gives rise to multiple diagonal branches. It has critical InStent restenosis of the distal part of the mid LAD stent at 99%. Likely the culprit of patient's symptoms and drop in the ejection fraction. 4. The left circumflex vessel is medium-sized vessel it gives rise to two obtuse marginal branches without significant atherosclerotic plaquing. Successful PTCA followed by angioplasty with single drug-eluting stent to the distal part of the middle LAD InStent restenosis: The tiger five Syrian catheter was exchanged for an XB 3-0 guide catheter, a C- arm blue wire was used to traverse the lesion, this followed by predilatation using three and 3-1/2 x semi compliant balloon for1 minute. Because of actively coil we had to place a stent this was done using 3.5 x 18 drug-eluting stent jhonny Richa with the excellent final result. The overlap area was dilated using 20 atmospheric pressure 3.5 x 20 balloon. Procedure tolerated very well no obvious complication was seen. Anticoagulation during the procedure: Patient received continuous intravenous bivalirudin, she has been chronically taking Plavix and Eliquis as an outpatient which she will continue to take. Impression and plan: 1. Successful percutaneous transluminal coronary angioplasty with stent placement to the distal part of severe InStent restenosis of the mid LAD stent. 2. Patient has underlying systolic and diastolic heart failure which required aggressive medical therapy as per GT MT. 3. Patient will continue taking Plavix and Eliquis indefinitely giving high-risk of InStent restenosis and InStent thrombosis. She also need to take statins with the high-dose achieve LDL target of less than 50 mg/dL and hemoglobin A1c of less than seven. 4. Patient would need a follow-up echocardiogram as an outpatient in 3-6 months' time to assess improvement in ejection fraction. In the meantime she will be admitted for24 hours under observation before she will get discharge. Condition Good [facility] Clinical Frailty Scale [facility] Clinical Frailty Scale: Moderately Frail Stress Test Stress Test Performed: No Dominance Dominance: Right GREGORIA GREGORIA Flow: Post- Intervention (GREGORIA-3), Pre-Intervention (GREGORIA-2) Lesion Residual Stenosis post procedu: 0% Disposition VINCENZO NORWOOD MD May 26, 2024 12:03
[2024-05-26] MEDS ORDERED: NITROGLYCERIN 0.4 MG SL TAB SL PRN (12:30)
[2024-05-26] MEDS ORDERED: METHOCARBAMOL 500 MG TAB PO PRN (15:15)
[2024-05-26] MEDS: traMADol HCL 50 MG TAB PO ONE (15:18)
--- NOTE | 2024-05-26 15:30 | DVHHP2 ---
History of Present Illness Reason for Visit: Status post catheterization History of Present Illness 68-year-old female multiple medical problems but ischemic heart disease hypertension diabetes hyperlipidemia CKD small pericardial effusion patient had catheterization in the past with a stent placement chief complaint patient is status post catheterization today per patient had one stent placed. pt had scheduled outpt procedure, pt to be admitted for medical evaluation s/p stent placement due to medically necessary care, pt denies any c/o chest pain no sob, no bleeding from cath site, when evaluating patient's labs and imaging patient has not recent labs completed. We will order a.m. labs. We will also continue all home medications. We will continue the monitor for any cardiac arrythmia's on tele floor Past Medical History See HPI above Past Surgical History See HPI above Family History Reviewed, non-contributory to the management of this case. Past Social History The patient lives at home, denies smoking, alcohol or illicit drugs abuse. Review of Systems Constitutional: No: Fever, Chills, Sweats, Weakness, Malaise, Other Eyes: No: Pain, Vision change, Conjunctivae inflammation, Eyelid inflammation, Other, Redness ENT: No: Ear pain, Ear discharge, Nose pain, Nose discharge, Nose congestion, Mouth pain, Mouth swelling, Throat pain, Throat swelling, Other Respiratory: No: Cough, Dry, Shortness of breath, SOB with excertion, Wheezing, Hemoptysis, Pleuritic Pain, Sputum, Wheezing, Other Cardiovascular: No: Chest Pain, Palpitations, Orthopnea, Paroxysmal Noc. Dyspnea, Edema, Lt Headedness, Other Gastrointestinal: No: Nausea, Vomiting, Abdominal Pain, Diarrhea, Constipation, Melena, Hematochezia, Other Genitourinary: No Dysuria, No Frequency, No Incontinence, No Hematuria, No Retention, No Other Musculoskeletal: No: other, neck pain, shoulder pain, arm pain, back pain, hand pain, leg pain, foot pain Skin: No: Rash, Lesions, Jaundice, Bruising, Other Neurological: No: Weakness, Numbness, Incoordination, Change in speech, Confusion, Seizures, Other Allergies: Coded Allergies: Albuterol (Verified Allergy, Unknown, 05/22/24) Aspirin (Verified Allergy, Unknown, wheezing, 05/22/24) Caffeine (Verified Allergy, Unknown, 05/22/24) Chondroitin Sulfate A (Verified Allergy, Unknown, HIVES, 05/22/24) Cromolyn (Verified Allergy, Unknown, 05/22/24) Epinephrine (Verified Allergy, Unknown, trouble breathing, 05/22/24) Erythromycin (Verified Allergy, Unknown, 05/22/24) Insulin Glargine (Verified Allergy, Unknown, 05/22/24) Neomycin (Verified Allergy, Unknown, 05/22/24) Onion (Verified Allergy, Unknown, 05/22/24) Penicillins (Verified Allergy, Unknown, yeast infection, 05/22/24) Polymyxin B (Verified Allergy, Unknown, 05/22/24) Prednisone (Verified Allergy, Unknown, 05/22/24) Pseudoephedrine (Verified Allergy, Unknown, HIVES, 05/22/24) Regadenoson (Verified Allergy, Unknown, ANGINA, 05/22/24) Sulfa Antibiotics (Verified Allergy, Unknown, hives, 05/22/24) Theophylline (Verified Allergy, Unknown, 05/22/24) Triprolidine (Verified Allergy, Unknown, HIVES, 05/22/24) Codeine (Verified Adverse Reaction, Unknown, SOB, 05/22/24) Ibuprofen (Verified Adverse Reaction, Unknown, WHEEZING, 05/22/24) Lidocaine (Verified Adverse Reaction, Unknown, NV, 05/22/24) Uncoded Allergies: garlic (Allergy, Mild, 11/07/22) red meat (Allergy, Mild, nausea/ vomiting, 11/07/22) whole grains (Allergy, Mild, 11/07/22) CHONDROITION (Allergy, Unknown, HIVES SOB, 04/20/17) SALICYLATE (Allergy, Unknown, NV, 04/20/17) STEROIDS (Adverse Reaction, Unknown, SOB, 04/20/17) Medications Current Medications Medications Dose Ordered Sig/Maggie Route Start Time Stop Time Status Last Admin Dose Admin Nitroglycerin 0.4 mg Q5MINP PRN SL 05/26/24 12:30 Amitriptyline HCl 50 mg HS PO 05/26/24 22:00 UNV Baclofen 20 mg QID PO 05/26/24 18:00 UNV Clopidogrel Bisulfate 75 mg DAILY PO 05/27/24 10:00 UNV Docusate Sodium 100 mg DAILY PO 05/27/24 10:00 UNV EZETIMIBE 10 mg DAILY PO 05/27/24 10:00 UNV Gabapentin 300 mg QAM PO 05/27/24 07:00 UNV Hydralazine HCl 25 mg BID PO 05/26/24 22:00 UNV Hydroxychloroquine Sulfate 200 mg DAILY PO 05/27/24 10:00 UNV Ipratropium Fay 2 QID IN 05/26/24 18:00 UNV Loratadine 10 mg DAILY PO 05/27/24 10:00 UNV Lorazepam 0.5 mg QIDP PO 05/26/24 18:00 UNV Methocarbamol 500 mg Q8HPRN PRN PO 05/26/24 15:15 UNV Montelukast Sodium 10 mg DAILY PO 05/27/24 10:00 UNV Pantoprazole Sodium 40 mg DAILY PO 05/27/24 10:00 UNV Torsemide 20 mg DAILY PO 05/27/24 10:00 UNV Tramadol HCl 50 mg TID PO 05/26/24 22:00 UNV Patient Own Medication 500 mg QID PO 05/26/24 18:00 UNV Patient Own Medication 40 mg DAILY PO 05/27/24 10:00 UNV Patient Own Medication 134 mg DAILY PO 05/27/24 10:00 UNV Patient Own Medication 1 mg DAILY PO 05/27/24 10:00 UNV Patient Own Medication 1 tab BID PO 05/26/24 22:00 UNV Patient Own Medication 1 mg Q4HR PO 05/26/24 18:00 UNV Patient Own Medication 8 mg BIDP PRN PO 05/26/24 15:15 UNV Patient Own Medication 36,000 unt DAILY OR 05/27/24 10:00 UNV Patient Own Medication 1 tab DAILY PO 05/27/24 10:00 UNV Patient Own Medication 180 mg DAILY PO 05/27/24 10:00 UNV Patient Own Medication 1 applic BID TOP 05/26/24 22:00 UNV Patient Own Medication 1 cap DAILY PO 05/27/24 10:00 UNV Patient Own Medication 50 mg DAILY PO 05/27/24 10:00 UNV Apixaban 2.5 mg BID PO 05/26/24 22:00 UNV Exam General Appearance: Alert, Oriented X3, Cooperative, No acute distress HEENT: Atraumatic, PERRLA, EOMI, Mucous membr. moist/pink Respiratory: Clear to auscultation, Normal air movement Cardiovascular: Regular rate, Normal S1, Normal S2, No murmurs Abdominal: Normal bowel sounds, Soft, No tenderness, No hepatospenomegaly, No masses Extremities: No clubbing, No cyanosis, No edema, Normal pulses, No tend erness/swelling, Other (Right inner wrist with puncture side no active bleeding neurovascular intact positive we are going to finger compartments soft) Skin: No rashes, No breakdown, No significant lesion Neuro: Normal gait, Normal speech, Strength at 5/5 X4 ext, Normal tone, Sensation intact, Cranial nerves 3-12 NL Psych/Mental Status: Mental status NL, Mood NL Labs/Xrays I reviewed labs, imaging CT scan abdomen pelvis, EKG and all diagnostic studies on this patient from ED records and the medical chart Assessment/Plan Assessment/Plan acute on chronic ischemic heart disease s/p cath today with one stent to the distal part of severe InStent restenosis of the mid LAD stent. cont home medication with eliquis per cards ordered ekg in am cards following fu recs ordered lisinopril aspirin 81mg after acs stabilized, statin reduce the cholesterol ordered tramadol for pain control monitor cath site for bleeding monitor for circulation compromise monitor for heart failure/heart shock symptoms, arrhythmia, bradycardia per cards indefinite plavix and eliquis given restenosis and thrombosis statins with the high-dose achieve LDL target of less than 50 mg/dL and hemoglobin A1c of less than seven follow-up echocardiogram as an outpatient in 3-6 months' time to assess improvement in ejection fraction. uncontrolled benign essential hypertension cont home medication chronic hld cont home medication chronic ckd monitor for worsening kidney function s/p procedure chronic asthma no resp distress cont albuterol chronic fibromyalgia cont home medication fen/ppx npo for now ivf eliquis protonix scd plan admit to tele monitor Plan discussed with: Patient My Orders Orders - NIK ALBARRAN DNP Procedure Category Date Status Time Amitriptyline Hcl PHA 05/26/24 Logged Tablet (Elavil Tablet) 22:00 Baclofen Tablet PHA 05/26/24 Logged (Liorisal Tablet) 18:00 Clopidogrel Bisulfate PHA 05/27/24 Logged (Plavix) 10:00 Docusate Sodium PHA 05/27/24 Logged Capsule (Colace 10:00 Ezetimibe (Zetia) PHA 05/27/24 Logged 10:00 Gabapentin Capsule PHA 05/27/24 Logged (Neurontin Capsule) 07:00 Hydralazine Hcl PHA 05/26/24 Logged Tablet (Apresoline 22:00 Hydroxychloroquine PHA 05/27/24 Logged Tablet (Plaquenil Tab 10:00 Ipratropium Fay PHA 05/26/24 Logged Hfa (Atrovent Hfa) 18:00 Loratadine Tablet PHA 05/27/24 Logged (Claritin Tablet) 10:00 Lorazepam Tablet PHA 05/26/24 Logged (Ativan Tablet) 18:00 Methocarbamol PHA 05/26/24 Logged (Robaxin) 15:15 Montelukast Tablet PHA 05/27/24 Logged (Singulair Tablet) 10:00 Pantoprazole Tablet PHA 05/27/24 Logged (Protonix Tablet) 10:00 Torsemide Tab PHA 05/27/24 Logged (Demadex Tab) 10:00 Tramadol Hcl (Ultram) PHA 05/26/24 Logged 22:00 (Nf) Acetaminophen PHA 05/26/24 Logged (Tylenol) 18:00 (Nf) Febuxostat PHA 05/27/24 Logged (Uloric) 10:00 (Nf) Fenofibrate PHA 05/27/24 Logged Micronized 10:00 (Nf) Folic Acid PHA 05/27/24 Logged 10:00 (Nf) Guaifenesin PHA 05/26/24 Logged (Mucinex) 22:00 (Nf) Lorazepam PHA 05/26/24 Logged 18:00 (Nf) Ondansetron Hcl PHA 05/26/24 Logged (Ondansetron) 15:15 (Nf) Pancrelipase PHA 05/27/24 Logged (Lipase-Protease- (Cre 10:00 (Nf) Rosuvastatin PHA 05/27/24 Logged Calcium (Crestor) 10:00 (Nf) Tocopheryl PHA 05/27/24 Logged Acetate, Dl-Alpha 10:00 (Nf) Triamcinolone PHA 05/26/24 Logged Acetonide 22:00 (Nf) Venlafaxine Hcl PHA 05/27/24 Logged (Venlafaxine Hcl Er 10:00 (Nf) Zinc Gluconate PHA 05/27/24 Logged (Zinc) 10:00 Allergies RAINE 12/10/24 In Process 15:04 Code Status CODE 12/10/24 Transmitted 15:04 Fall Risk Precautions RAINE 05/26/[address] 15:04 Complete Blood Count LAB 05/27/24 Verified 04:00 Comprehensive LAB 05/27/24 Verified Metabolic Panel 04:00 Condition: Stable RAINE 05/26/24 In Process 15:04 BRP RAINE 05/26/24 In Process 15:04 Sequential RAINE 05/26/24 In Process Compression Device Apixaban (Eliquis) PHA 05/26/24 Logged 22:00 Date of Service: May 26, 2024 Billing Provider: NIK ALBARRAN DNP Common Visit Codes: [id number] INP/OBS CARE (HIGH) NIK ALBARRAN DNP May 26, 2024 15:30
[2024-05-26] MEDS: LORazepam 0.5 MG TAB PO SCH (17:40)
[2024-05-26] MEDS: BACLOFEN 10 MG TAB PO SCH (18:00)
[2024-05-26] MEDS ORDERED: IPRATROPIUM BROMIDE HFA AER IN SCH (18:00)
[2024-05-26] MEDS ORDERED: LORAZEPAM 1 MG PO SCH (18:00)
[2024-05-26] MEDS: AMITRIPTYLINE HCL 25 MG TAB PO SCH (21:32)
[2024-05-26] MEDS: hydrALAZINE HCL 25 MG TAB PO SCH (21:32)
[2024-05-26] MEDS ORDERED: ONDANSETRON ODT 4 MG TAB PO PRN (22:30)
[2024-05-26] MEDS: traMADol HCL 50 MG TAB PO SCH (23:34)
[2024-05-26] MEDS: APIXABAN 2.5 MG TAB PO SCH (23:34)
[2024-05-27] VITALS (16 sets, daily range): BP systolic 115–129; BP diastolic 50–82; PULSE 74–80; RESP 16–20; TEMP 97.7–98.3; O2SAT 2–100
[2024-05-27 06:08] LABS: Basophils # (auto) 0 10 ^3/uL (0-0.2); Basophils % (auto) 0.5 % (0.0-2.0); Eosinophils # (auto) 0.2 10 ^3/uL (0-0.8); Eosinophils % (auto) 3.2 % (0.0-7.0); Hematocrit 36.4 % (36.0-46.0); Hemoglobin 11.9 g/dL (12.2-16.2); Lymphocytes # (auto) 1.4 10 ^3/uL (0.4-5.4); Mean Corpuscular Hemoglobin 28.2 pg (28.0-32.0); Mean Corpuscular Hgb Conc. 32.7 g/dL (32.0-36.0); Mean Corpuscular Volume 86.3 fL (80.0-100.0); Monocytes # (auto) 0.5 10 ^3/uL (0-1.3); Monocytes % (auto) 7.3 % (0.0-12.0); Neutrophils # (auto) 5.2 10 ^3/uL (1.6-8.6); Nucleated Red Blood Cells % 0.2 %; Platelet Count (auto) 271 10^3/uL (140-450); Red Blood Cells 4.22 10^6/uL (4.0-5.20); Red Cell Distribution Width 16.1 % (11.8-14.3); White Blood Cell 7.4 10^3/uL (4.4-10.8)
[2024-05-27] MEDS: GABAPENTIN 300 MG CAP PO SCH (06:14)
[2024-05-27] MEDS: ACETAMINOPHEN 500 MG TAB or CAP PO SCH (06:14)
[2024-05-27] MEDS: IPRATROPIUM BROM 0.5 MG/2.5ML INH SOL NEB SCH (06:23)
[2024-05-27 06:39] LABS: Alkaline Phosphatase 67 U/L (46-116); Anion Gap 5 (5-15); Calcium 10.4 mg/dL (8.7-10.4); Carbon Dioxide 28 mmol/L (20-31); Chloride 103 mmol/L (98-107); Potassium 4.3 mmol/L (3.5-5.1); Sodium 136 mmol/L (136-145)
[2024-05-27 06:40] LABS: Albumin 4.1 g/dL (3.2-4.8); Aspartate Aminotransferase 15 U/L (13-40); BUN/Creatinine Ratio 20.3 (10.0-20.0)
[2024-05-27 06:42] LABS: Bilirubin, Total 0.4 mg/dL (0.2-1.0); Total Protein 6.9 g/dL (5.7-8.2)
[2024-05-27 06:43] LABS: Alanine Aminotransferase < 9 U/L (7-40); Blood Urea Nitrogen 38 mg/dL (9-23); Glucose 185 mg/dL (74-106)
[2024-05-27] MEDS: TRIAMCINOLONE ACETONIDE TOP SCH (07:50)
[2024-05-27] MEDS: GUAIFENESIN 600 MG PO SCH (07:50)
[2024-05-27] MEDS: EZETIMIBE 10 MG TAB PO SCH (08:32)
[2024-05-27] MEDS: TORSEMIDE 20 MG TAB PO SCH (08:32)
[2024-05-27] MEDS: VENLAFAXINE HCL 37.5mg XR cap PO SCH (08:32)
[2024-05-27] MEDS: CLOPIDOGREL BISULFATE 75 MG TAB PO SCH (08:33)
[2024-05-27] MEDS: FOLIC ACID 1 MG TAB PO SCH (08:33)
[2024-05-27] MEDS: PANTOPRAZOLE 40 MG TAB PO SCH (08:33)
[2024-05-27] MEDS: DOCUSATE SOD 100 MG CAP PO SCH (08:33)
[2024-05-27] MEDS: MONTELUKAST SODIUM 10 MG TAB PO SCH (08:33)
[2024-05-27] MEDS: ZINC SULFATE 220mg CAP or TAB PO SCH (08:33)
[2024-05-27] MEDS: ATORVASTATIN 20 MG TAB PO SCH (08:33)
[2024-05-27] MEDS: LORATADINE 10 MG TAB PO SCH (08:34)
[2024-05-27] MEDS: hydrOXYchloroQUINE SULFATE 200 MG TAB PO SCH (08:34)
[2024-05-27] MEDS: TOCOPHERYL ACETATE DL ALPHA 180 MG PO SCH (09:47)
[2024-05-27] MEDS: FENOFIBRATE MICRONIZED 134 MG PO SCH (09:47)
[2024-05-27] MEDS ORDERED: CREON 36000 UNIT PO SCH (10:00)
--- NOTE | 2024-05-27 13:24 | DVHPN2 ---
Consult Progress Note Date Seen: May 27, 2024 Subjective Review of Systems: CVS:Normal, RESPIRATORY:Normal, NEURO:Normal Objective vital signs Vital Sign Date Time Temp Pulse Resp B/P (MAP) Pulse Ox O2 Delivery O2 Flow Rate FiO2 05/27/24 11:51 76 16 99 05/27/24 09:53 Nasal Cannula* 2 28 05/27/24 08:38 97.7 122/50 (74) 97.7 Total Intake and Output 05/26/24 05/26/24 05/27/24 15:00 23:00 07:00 Intake Total 0 ml 240 ml Balance 0 ml 240 ml medications Current Medications Medications Dose Ordered Sig/Maggie Route Start Time Stop Time Status Last Admin Dose Admin Nitroglycerin 0.4 mg Q5MINP PRN SL 05/26/24 12:30 Amitriptyline HCl 50 mg HS PO 05/26/24 22:00 05/26/24 21:32 50 MG Baclofen 20 mg QID PO 05/26/24 18:00 Clopidogrel Bisulfate 75 mg DAILY PO 05/27/24 10:00 05/27/24 08:33 75 MG Docusate Sodium 100 mg DAILY PO 05/27/24 10:00 05/27/24 08:33 100 MG EZETIMIBE 10 mg DAILY PO 05/27/24 10:00 05/27/24 08:32 10 MG Gabapentin 300 mg QAM PO 05/27/24 07:00 05/27/24 06:14 300 MG Hydralazine HCl 25 mg BID PO 05/26/24 22:00 05/27/24 08:34 25 MG Hydroxychloroquine Sulfate 200 mg DAILY PO 05/27/24 10:00 05/27/24 08:34 200 MG Loratadine 10 mg DAILY PO 05/27/24 10:00 05/27/24 08:34 10 MG Lorazepam 0.5 mg QIDP PO 05/26/24 18:00 05/27/24 11:09 0.5 MG Methocarbamol 500 mg Q8HPRN PRN PO 05/26/24 15:15 Montelukast Sodium 10 mg DAILY PO 05/27/24 10:00 05/27/24 08:33 10 MG Pantoprazole Sodium 40 mg DAILY PO 05/27/24 10:00 05/27/24 08:33 40 MG Torsemide 20 mg DAILY PO 05/27/24 10:00 05/27/24 08:32 20 MG Tramadol HCl 50 mg TID PO 05/26/24 22:00 05/27/24 06:14 50 MG Acetaminophen 500 mg QID PO 05/27/24 06:00 05/27/24 11:09 500 MG Patient Own Medication 40 mg DAILY PO 05/27/24 10:00 Patient Own Medication 134 mg DAILY PO 05/27/24 10:00 Folic Acid 1 mg DAILY PO 05/27/24 10:00 05/27/24 08:33 1 MG Patient Own Medication 1 tab BID PO 05/26/24 22:00 Ondansetron HCl 8 mg BIDP PRN PO 05/26/24 22:30 Patient Own Medication 36,000 unt DAILY PO 05/27/24 10:00 Hold Atorvastatin Calcium 40 mg DAILY PO 05/27/24 10:00 05/27/24 08:33 40 MG Patient Own Medication 180 mg DAILY PO 05/27/24 10:00 Patient Own Medication 1 applic BID TOP 05/26/24 22:00 Venlafaxine HCl 150 mg DAILY PO 05/27/24 10:00 05/27/24 08:32 150 MG Zinc Sulfate 220 mg DAILY PO 05/27/24 10:00 05/27/24 08:33 220 MG Apixaban 2.5 mg BID PO 05/26/24 22:00 05/27/24 08:33 2.5 MG Ipratropium [place] 0.5 mg Q6HR NEB 05/27/24 06:00 05/27/24 11:41 0.5 MG Examination: LUNGS:Normal, CVS:Normal, NEURO:Normal laboratory and microbiology Laboratory Tests 05/27/24 05:27 Test 05/27/24 05:27 Range/Units Serum Glucose 185 H 74-106 mg/dL Problem List/Assessment/Plan Problem List/Assessment/Plan Coronary artery disease s/p PTCA with stent placement of severe in-stent restenosis/thrombosis of the mid LAD Chronic compensated HFrEF at 40% Paroxysmal atrial fibrillation on low-dose Eliquis Rheumatoid arthritis Hx of pericardial effusion CKD stage IIIb Hypertension Dyslipidemia Prediabetes Obesity Assessment/Plan (Dr. Pagan) * Recent transthoracic echocardiogram revealed EF 40% * Continue Plavix therapy and low-dose Eliquis * Initiate beta-carrillo given reduced LVEF * Continue statin and ezetimibe for a target LDL < 50 mg/dL * Follow-up with Dr. Pagan on 06/01/24 at 1345 * Counseled on Mediterranean diet, weight loss, and medical compliance There is no further cardiac work-up indicated at this time. Kindly call if in need to re-consult. Thank you for allowing us to care for this patient. Plan discussed with: Patient, Other Date of Service: May 27, 2024 Billing Provider: RIANNA PAGAN MD Cardiology Common Codes: [id number] [facility] RUTHY COREAS [facility] May 27, 2024 13:24
--- NOTE | 2024-05-27 18:06 | DVHPN2 ---
Subjective Seen and examined at bedside, s/p PCI. Needs home oxygen. Changes from previous H/P or p: No Changes Eyes: No Pain, No Vision change, No Conjunctivae inflammation, No Eyelid inflammation, No Other, No Redness ENT: No Ear pain, No Ear discharge, No Nose pain, No Nose discharge, No Nose congestion, No Mouth pain, No Mouth swelling, No Throat pain, No Throat swelling, No Other Cardiovascular: No Chest Pain, No Palpitations, No Orthopnea, No Paroxysmal Noc. Dyspnea, No Edema, No Lt Headedness, No Other Respiratory: No Cough, No Dry, No Shortness of breath, No SOB with excertion, No Wheezing, No Hemoptysis, No Pleuritic Pain, No Sputum, No Other Gastrointestinal: No Nausea, No Vomiting, No Abdominal Pain, No Diarrhea, No Constipation, No Melena, No Hematochezia, No Other Genitourinary: No Dysuria, No Frequency, No Incontinence, No Hematuria, No Retention, No Other Musculoskeletal: No other, No neck pain, No shoulder pain, No arm pain, No back pain, No hand pain, No leg pain, No foot pain Skin: No Rash, No Lesions, No Jaundice, No Bruising, No Other Objective Vitals Vital Signs Date Time Temp Pulse Resp B/P (MAP) Pulse Ox O2 Delivery O2 Flow Rate FiO2 05/27/24 17:00 98.3 80 18 129/71 (90) 100 98.3 05/27/24 09:53 Nasal Cannula* 2 28 Intake/Output Intake and Output 05/27/24 07:00 Intake Total 240 ml Balance 240 ml Intake Oral 240 ml Exam Gen: in bed NAD Cvs: N S1/S2, RRR Resp: BLAE Abd: Soft, NT, BS+ Traffic Counter: AAO x 4 Medications Current Medications Medications Dose Ordered Sig/Maggie Route Start Time Stop Time Status Last Admin Dose Admin Nitroglycerin 0.4 mg Q5MINP PRN SL 05/26/24 12:30 Amitriptyline HCl 50 mg HS PO 05/26/24 22:00 05/26/24 21:32 50 MG Baclofen 20 mg QID PO 05/26/24 18:00 Clopidogrel Bisulfate 75 mg DAILY PO 05/27/24 10:00 05/27/24 08:33 75 MG Docusate Sodium 100 mg DAILY PO 05/27/24 10:00 05/27/24 08:33 100 MG EZETIMIBE 10 mg DAILY PO 05/27/24 10:00 05/27/24 08:32 10 MG Gabapentin 300 mg QAM PO 05/27/24 07:00 05/27/24 06:14 300 MG Hydralazine HCl 25 mg BID PO 05/26/24 22:00 05/27/24 08:34 25 MG Hydroxychloroquine Sulfate 200 mg DAILY PO 05/27/24 10:00 05/27/24 08:34 200 MG Loratadine 10 mg DAILY PO 05/27/24 10:00 05/27/24 08:34 10 MG Lorazepam 0.5 mg QIDP PO 05/26/24 18:00 05/27/24 11:09 0.5 MG Methocarbamol 500 mg Q8HPRN PRN PO 05/26/24 15:15 Montelukast Sodium 10 mg DAILY PO 05/27/24 10:00 05/27/24 08:33 10 MG Pantoprazole Sodium 40 mg DAILY PO 05/27/24 10:00 05/27/24 08:33 40 MG Torsemide 20 mg DAILY PO 05/27/24 10:00 05/27/24 08:32 20 MG Tramadol HCl 50 mg TID PO 05/26/24 22:00 05/27/24 06:14 50 MG Acetaminophen 500 mg QID PO 05/27/24 06:00 05/27/24 17:12 500 MG Patient Own Medication 40 mg DAILY PO 05/27/24 10:00 Patient Own Medication 134 mg DAILY PO 05/27/24 10:00 Folic Acid 1 mg DAILY PO 05/27/24 10:00 05/27/24 08:33 1 MG Patient Own Medication 1 tab BID PO 05/26/24 22:00 Ondansetron HCl 8 mg BIDP PRN PO 05/26/24 22:30 Patient Own Medication 36,000 unt DAILY PO 05/27/24 10:00 Hold Atorvastatin Calcium 40 mg DAILY PO 05/27/24 10:00 05/27/24 08:33 40 MG Patient Own Medication 180 mg DAILY PO 05/27/24 10:00 Patient Own Medication 1 applic BID TOP 05/26/24 22:00 Venlafaxine HCl 150 mg DAILY PO 05/27/24 10:00 05/27/24 08:32 150 MG Zinc Sulfate 220 mg DAILY PO 05/27/24 10:00 05/27/24 08:33 220 MG Apixaban 2.5 mg BID PO 05/26/24 22:00 05/27/24 08:33 2.5 MG Ipratropium [place] 0.5 mg Q6HR NEB 05/27/24 06:00 05/27/24 11:41 0.5 MG Laboratory Results Laboratory Tests 05/27/24 05:27 Chemistry Test 05/27/24 05:27 Albumin 4.1 g/dL (3.2-4.8) Calcium Level 10.4 mg/dL (8.7-10.4) Total Protein 6.9 g/dL (5.7-8.2) LFT Test 05/27/24 05:27 Alanine Aminotransferase (ALT) < 9 U/L (7-40) Alkaline Phosphatase 67 U/L (46-116) Aspartate Amino Transferase (AST) 15 U/L (13-40) Total Bilirubin 0.4 mg/dL (0.2-1.0) Assessment/Plan Assessment/Plan Coronary artery disease s/p PTCA with stent placement of severe in-stent restenosis/thrombosis of the mid LAD Chronic compensated HFrEF at 40% Acute Resp Failure- Needs home oxygen Paroxysmal atrial fibrillation on low-dose Eliquis Rheumatoid arthritis Hx of pericardial effusion CKD stage IIIb Hypertension Dyslipidemia Prediabetes Obesity Plan discussed with: Patient My Orders Orders - KIRILL CHOW MD Procedure Category Date Status Time * Enrober CONS 05/27/24 Transmitted Consult Date of Service: May 27, 2024 Billing Provider: KIRILL CHOW MD Common Visit Codes: [id number] INP/OBS CARE(HIGH) KIRILL CHOW MD May 27, 2024 18:06
[2024-05-28] VITALS (13 sets, daily range): BP systolic 121–134; BP diastolic 47–72; PULSE 67–83; RESP 16–20; TEMP 97.7–98.1; O2SAT 91–100
[2024-05-28 06:18] LABS: Chloride 102 mmol/L (98-107); Potassium 4.1 mmol/L (3.5-5.1); Sodium 138 mmol/L (136-145)
[2024-05-28 06:19] LABS: Anion Gap 7 (5-15); Calcium 10.2 mg/dL (8.7-10.4); Carbon Dioxide 29 mmol/L (20-31)
[2024-05-28 06:24] LABS: BUN/Creatinine Ratio 19.5 (10.0-20.0)
[2024-05-28 06:25] LABS: Magnesium 2.6 mg/dL (1.6-2.6)
[2024-05-28 06:32] LABS: Blood Urea Nitrogen 34 mg/dL (9-23); Glucose 170 mg/dL (74-106)
[2024-05-28] MEDS: FUROSEMIDE 40 MG/4 ML VIAL IV SCH (06:36)
--- NOTE | 2024-05-28 09:24 | DVH ---
XY CHEST TWO VIEWS ROUTINE CLINICAL HISTORY: SOB COMPARISON: None TECHNIQUE: Frontal and lateral view of the chest was obtained FINDINGS: Lines and Tubes: None Lungs: No focal consolidation. Pleura: No effusion. No pneumothorax. Cardiomediastinal contours: Unremarkable Bones: No acute osseous abnormality. IMPRESSION: No acute cardiopulmonary disease.
[2024-05-28] MEDS ORDERED: PANCREATIC ENZYMES 4200 UNIT CAP PO PRN (09:45)
[2024-05-28] MEDS ORDERED: PANCREATIC ENZYMES 4200 UNIT CAP PO SCH (12:00)
[2024-05-28] MEDS ORDERED: APIX2.5T PO (14:42)
[2024-05-28] MEDS ORDERED: CLOP75TA28 PO (14:42)
--- NOTE | 2024-05-28 14:45 | DVHDS2 ---
Discharge Summary Date of Admission May 26, 2024 at 12:27 Date of Discharge: May 28, 2024 Admitting Diagnosis Coronary artery disease Labs/Diagnostic Data: Laboratory Results Test 05/28/24 05:15 05/27/24 05:27 Sodium Level 138 mmol/L (136-145) Potassium Level 4.1 mmol/L (3.5-5.1) Chloride Level 102 mmol/L (98-107) Carbon Dioxide Level 29 mmol/L (20-31) Anion Gap 7 (5-15) Blood Urea Nitrogen 34 mg/dL (9-23) Creatinine 1.74 mg/dL (0.550-1.02) Glomerular Filtration Rate Calc 32 mL/min (>90) BUN/Creatinine Ratio 19.5 (10.0-20.0) Serum Glucose 170 mg/dL (74-106) Calcium Level 10.2 mg/dL (8.7-10.4) Magnesium Level 2.6 mg/dL (1.6-2.6) B-Type Natriuretic Peptide 1089.06 pg/mL (0-100) White Blood Count 7.4 10^3/uL (4.4-10.8) Red Blood Count 4.22 10^6/uL (4.0-5.20) Hemoglobin 11.9 g/dL (12.2-16.2) Hematocrit 36.4 % (36.0-46.0) Mean Corpuscular Volume 86.3 fL (80.0-100.0) Mean Corpuscular Hemoglobin 28.2 pg (28.0-32.0) Mean Corpuscular Hemoglobin Concent 32.7 g/dL (32.0-36.0) Red Cell Distribution Width 16.1 % (11.8-14.3) Platelet Count 271 10^3/uL (140-450) Mean Platelet Volume 8.4 fL (6.9-10.8) Neutrophils (%) (Auto) 70.0 % (37.0-80.0) Lymphocytes (%) (Auto) 19.0 % (10.0-50.0) Monocytes (%) (Auto) 7.3 % (0.0-12.0) Eosinophils (%) (Auto) 3.2 % (0.0-7.0) Basophils (%) (Auto) 0.5 % (0.0-2.0) Neutrophils # (Auto) 5.2 10 ^3/uL (1.6-8.6) Lymphocytes # (Auto) 1.4 10 ^3/uL (0.4-5.4) Monocytes # (Auto) 0.5 10 ^3/uL (0-1.3) Eosinophils # (Auto) 0.2 10 ^3/uL (0-0.8) Basophils # (Auto) 0 10 ^3/uL (0-0.2) Nucleated Red Blood Cells 0.2 % Hemoglobin A1c 10.0 % A1C (<5.7) Total Bilirubin 0.4 mg/dL (0.2-1.0) Aspartate Amino Transferase (AST) 15 U/L (13-40) Alanine Aminotransferase (ALT) < 9 U/L (7-40) Alkaline Phosphatase 67 U/L (46-116) Total Protein 6.9 g/dL (5.7-8.2) Albumin 4.1 g/dL (3.2-4.8) Other Laboratory Tests 05/28/24 05:15 05/27/24 05:27 Brief Hx & Hospital Course: 68-year-old female multiple medical problems and ischemic heart disease hypertension diabetes hyperlipidemia CKD small pericardial effusion patient had LHC. See operative report below. Patient will be discharged with Eliquis and Plavix. Operations or Procedures Operative Report -Cardiology Report Details Date: 05/26/24 Preop Diagnosis: Shortness of breath culminating to NYHA class 3, worsening of the left ventricular systolic function had a stent implant done a year ago Postop Diagnosis: There is severe InStent restenosis of the distal part of the LAD stent. Patient treated with a PTCA followed by a single drug-eluting stent to that segment with excellent final result. Surgeon: Vincenzo Norwood MD Anesthesiologist: Conscious sedation using25 mcg of fentanyl as well as a mg IV midazolam. It was given under the direct supervision of myself in the presence of the attending nurses. Patient was monitored for total of 40 minutes without obvious complication. Anesthesia: Local Consent: The patient was informed of the risks and benefits of the procedure. These include but are not limited to complications of anesthesia, postoperative infection, incomplete relief of symptoms, recurrence of symptoms, damage to blood vessels, nerves and tendons, deep venous thrombosis, pulmonary embolism and possible need for repeat surgery in the future. Indications for Surgery: This is a 68-year-old lady with a history of diabetes mellitus type 2, hypertension, hyperlipidemia, history of recurrent pericarditis, history paroxysmal atrial fibrillation, history of ischemic cardiomyopathy with a stent implant to the LAD in 2022. He she presented to the hospital with a worsening symptoms of shortness of breath culminating two [place] heart [employer] class three. She also has read drop in the ejection fraction from 50% to 28%. Patient was booked today for coronary angiography to rule out InStent stenosis and a stent thrombosis. Patient admitted having to stop her antiplatelet anticoagulation for at least two weeks for dental work. Without consulting with the primary social security assessor. She was booked today for coronary angiography to rule out any problem with the stent to the LAD or if she has progression of her underlying coronary artery disease. Name of Procedure Performed 1. Left heart catheterization with left ventricular end-diastolic pressure measurement 2. Selective right and left coronary angiography utilizing right transradial approach. 3. PTCA followed by PCI with single drug-eluting stent to distal part of the mid LAD stent due to severe InStent restenosis of the stent and 90%. 4. Conscious sedation using25 mcg of fentanyl as well as a mg of midazolam. Procedure Details Procedure Details: Procedure note and vascular access: After informed consent was obtained, risks, benefits, complications, and alternatives were discussed in details with the patient who agrees to have the procedure done. At the beginning of the procedure, the right wrist and the right coronary artery were prepped and draped in the regular sterile fashion. Patient received conscious sedation with25 mcg of fentanyl as well as a mg midazolam. No xylocaine was used due to allergy to xylocaine a six Thai sheath was placed without difficulty using modified Seldinger technique. A cocktail of 2.5 mg of verapamil as well as 100 mcg of nitroglycerin were given intra-arterial to prevent vasospasm. Total of 3000 heparin was given once the catheter across the aortic arch. Findings were as follows: 1. Left heart catheterization with left ventricular end-diastolic pressure measurement: With the help of a tiger five Thai catheter as well as a J-tip wire we were able to cross the aortic valve and measured left ventricular end-diastolic pressure which was elevated at 19 mm of mercury. There was no gradient across the aortic valve on the pullback. 2. Selective right and left coronary angiography utilizing right transradial approach: 1. The right coronary artery comes off the right coronary cusp it is a large dominant system it bifurcated distally into large posterior descending artery and medium-sized posterolateral branch. No significant coronary artery disease was noted. 2. Left main comes off left coronary cusp it is a large dominant system is widely patent bifurcates into large left anterior descending artery as well as a medium-sized left circumflex vessel. 3. Left anterior descending artery it is a large vessel with transapical route. It gives rise to multiple diagonal branches. It has critical InStent restenosis of the distal part of the mid LAD stent at 99%. Likely the culprit of patient's symptoms and drop in the ejection fraction. 4. The left circumflex vessel is medium-sized vessel it gives rise to two obtuse marginal branches without significant atherosclerotic plaquing. Successful PTCA followed by angioplasty with single drug-eluting stent to the distal part of the middle LAD InStent restenosis: The tiger five Thai catheter was exchanged for an XB 3-0 guide catheter, a C- arm blue wire was used to traverse the lesion, this followed by predilatation using three and 3-1/2 x semi compliant balloon for1 minute. Because of actively coil we had to place a stent this was done using 3.5 x 18 drug-eluting stent jhonny Owen with the excellent final result. The overlap area was dilated using 20 atmospheric pressure 3.5 x 20 balloon. Procedure tolerated very well no obvious complication was seen. Anticoagulation during the procedure: Patient received continuous intravenous bivalirudin, she has been chronically taking Plavix and Eliquis as an outpatient which she will continue to take. Impression and plan: 1. Successful percutaneous transluminal coronary angioplasty with stent placement to the distal part of severe InStent restenosis of the mid LAD stent. 2. Patient has underlying systolic and diastolic heart failure which required aggressive medical therapy as per [facility]. 3. Patient will continue taking Plavix and Eliquis indefinitely giving high-risk of InStent restenosis and InStent thrombosis. She also need to take statins with the high-dose achieve LDL target of less than 50 mg/dL and hemoglobin A1c of less than seven. 4. Patient would need a follow-up echocardiogram as an outpatient in 3-6 months' time to assess improvement in ejection fraction. In the meantime she will be admitted for24 hours under observation before she will get discharge. Condition at Discharge: Poor Final Diagnosis/Problems List Coronary artery disease s/p PTCA with stent placement of severe in-stent restenosis/thrombosis of the mid LAD Chronic compensated HFrEF at 40% Acute Resp Failure- Needs home oxygen Paroxysmal atrial fibrillation on low-dose Eliquis Rheumatoid arthritis Hx of pericardial effusion CKD stage IIIb Hypertension Dyslipidemia Prediabetes Obesity Discharge Disposition: Home Discharge Instruct/Medications Diet: Cardiac 2g Na,low cholest (2 gm sodium, low cholesterol) Activity: Light activity Follow Up/Referral: PCP in 2 weeks Medications: Eliquis and Plavix Discharge Statement: "Patient was advised to return to the ER or call 911 if any headaches, dizziness, shortness of breath, chest pain, abdominal pain, bleeding, fevers, or worsening of medical condition. Patient was counseled about treatment plan, medications, possible side effects, patientverbalized understanding. All questions were answered to the best of my ability. This discharge took greater then 30 minutes in planning, reviewing documentation, counseling the patient, and discussing with other team members." ASSESSMENT ASSESSMENT Assessment There is severe InStent restenosis of the distal part of the LAD stent.Patient treated with a PTCA followed by a single drug-eluting stent tothat segment with excellent final result. Date of Service: May 28, 2024 Billing Provider: KIRILL CHOW MD Common Visit Codes: [id number] DISCH DAY >30min KIRILL CHOW MD May 28, 2024 14:45
[2024-05-28 15:49] LABS: Base Excess -0.1 mmol/L (-2.0-3.0)
[2024-05-28] MEDS: [UNRECOGNIZED DRUG - OTHER] PO PRN (16:29)
== END 2024-05-28 19:30 | disposition home or self-care (01) | DRG 321 ==
LOC: CATH 08:44 → TELE 12:27 → TELE-WESTW 16:37
PROVIDERS: ADMIT Student in an Organized Health Care Education/Training Program; ATTEND Internal Medicine
PROC: 027034Z Dilation of Coronary Artery, One Artery with Drug-eluting Intraluminal Device, Percutaneous Approach (ICD-10-PCS; principal; 2024-05-26)
PROC: 4A023N7 Measurement of Cardiac Sampling and Pressure, Left Heart, Percutaneous Approach (ICD-10-PCS; 2024-05-26)
PROC: B211YZZ Fluoroscopy of Multiple Coronary Arteries using Other Contrast (ICD-10-PCS; 2024-05-26)
DX: T82.855A Stenosis of coronary artery stent, initial encounter (principal); J96.00 Acute respiratory failure, unspecified whether with hypoxia or hypercapnia; I24.9 Acute ischemic heart disease, unspecified; I13.0 Hypertensive heart and chronic kidney disease with heart failure and stage 1 through stage 4 chronic kidney disease, or unspecified chronic kidney disease; I50.42 Chronic combined systolic (congestive) and diastolic (congestive) heart failure; I25.10 Atherosclerotic heart disease of native coronary artery without angina pectoris; M79.7 Fibromyalgia; J45.909 Unspecified asthma, uncomplicated; E78.5 Hyperlipidemia, unspecified; E66.9 Obesity, unspecified; E11.22 Type 2 diabetes mellitus with diabetic chronic kidney disease; M06.9 Rheumatoid arthritis, unspecified; N18.32 Chronic kidney disease, stage 3b; I48.0 Paroxysmal atrial fibrillation; I25.5 Ischemic cardiomyopathy; Y83.1 Surgical operation with implant of artificial internal device as the cause of abnormal reaction of the patient, or of later complication, without mention of misadventure at the time of the procedure; Z88.0 Allergy status to penicillin; Z88.1 Allergy status to other antibiotic agents; Z88.6 Allergy status to analgesic agent; Z91.018 Allergy to other foods; Z88.8 Allergy status to other drugs, medicaments and biological substances; Z79.02 Long term (current) use of antithrombotics/antiplatelets
CPT/HCPCS: 36415; 71046; 80048; 80053; 83036; 83735; 83880; 85025; 92928; 93458; 94640; 97110; 97116; 97163; 99152; G0378; J2250; Q9967

== ENCOUNTER 2024-07-04 18:19 | Inpatient (IN) | payer OTHER, MEDICAID ==
[~2024-07-04] VITALS: Ht 165.1 cm; Wt 86.3 kg
[~2024-07-04 18:19] MED LIST changes: -DULA1INJ SC; -FENO134C16 PO; -LORA-1123 PO; -TORS20TA19 PO; -TRAM50TA2 PO
[2024-07-04] MEDS: IPRATROPIUM BROM 0.5 MG/2.5ML INH SOL NEB ONE (19:36)
[2024-07-04] MEDS: ALBUTEROL SULF 2.5 MG/0.5ML(0.5%) NEB SOLN NEB ONE (19:37)
--- NOTE | 2024-07-04 19:41 | ED.PDOC ---
History of Present Illness HPI Comments 68-year-old female came to the emergency room via EMS for shortness of breath. Patient is morbidly obese, has history of diabetes CHF and asthma. States she has been short of breath for the past 5 days. Saturating 98% on room air. Patient is a very poor informant. Chief Complaint: Shortness of Breath Time Seen by MD: 19:41 Primary Care Provider: BLANK Reviewed Notes: Nurses Notes Allergies: Coded Allergies: Egg-derived Products (Unverified Allergy, Severe, 01/28/23) NSAIDs (Unverified Allergy, Severe, 01/28/23) Oxycodone (Unverified Allergy, Severe, 01/28/23) Banana (Unverified Allergy, Intermediate, 01/28/23) Garlic (Unverified Allergy, Intermediate, 01/28/23) Oatmeal (Unverified Allergy, Intermediate, 01/28/23) Albuterol (Verified Allergy, Unknown, 05/22/24) Aspirin (Verified Allergy, Unknown, wheezing, 05/22/24) Caffeine (Verified Allergy, Unknown, 05/22/24) Chondroitin Sulfate A (Verified Allergy, Unknown, HIVES, 05/22/24) Cromolyn (Verified Allergy, Unknown, 05/22/24) Donepezil (Unverified Allergy, Unknown, 02/26/23) Epinephrine (Verified Allergy, Unknown, trouble breathing, 05/22/24) Erythromycin (Verified Allergy, Unknown, 05/22/24) Insulin Glargine (Verified Allergy, Unknown, 05/22/24) Levetiracetam (Unverified Allergy, Unknown, 02/26/23) Neomycin (Verified Allergy, Unknown, 05/22/24) Onion (Verified Allergy, Unknown, 05/22/24) Penicillins (Verified Allergy, Unknown, yeast infection, 05/22/24) Polymyxin B (Verified Allergy, Unknown, 05/22/24) Prednisone (Verified Allergy, Unknown, 05/22/24) Pseudoephedrine (Verified Allergy, Unknown, HIVES, 05/22/24) Regadenoson (Verified Allergy, Unknown, ANGINA, 05/22/24) Sulfa Antibiotics (Verified Allergy, Unknown, hives, 05/22/24) Theophylline (Verified Allergy, Unknown, 05/22/24) Triprolidine (Verified Allergy, Unknown, HIVES, 05/22/24) Codeine (Verified Adverse Reaction, Unknown, SOB, 05/22/24) Ibuprofen (Verified Adverse Reaction, Unknown, WHEEZING, 05/22/24) Lidocaine (Verified Adverse Reaction, Unknown, NV, 05/22/24) Uncoded Allergies: CHICKEN (Allergy, Severe, 01/28/23) DAIRY (Allergy, Severe, 01/28/23) LEAFY GREENS (Allergy, Severe, 01/28/23) PORK (Allergy, Severe, 01/28/23) BEEF (Allergy, Intermediate, 01/28/23) WHEAT FLOUR (Allergy, Intermediate, 01/28/23) WHOLE GRAIN (Allergy, Intermediate, 01/28/23) garlic (Allergy, Mild, 11/07/22) red meat (Allergy, Mild, nausea/ vomiting, 11/07/22) whole grains (Allergy, Mild, 11/07/22) CHONDROITION (Allergy, Unknown, HIVES SOB, 04/20/17) EGGS (Allergy, Unknown, 08/15/22) SALICYLATE (Allergy, Unknown, NV, 04/20/17) LETTUCE (Adverse Reaction, Intermediate, 01/28/23) TOMATOES (Adverse Reaction, Intermediate, 01/28/23) potato (Adverse Reaction, Intermediate, 04/20/24) per patient when she eats potatoes all of her joints swell and become painful STEROIDS (Adverse Reaction, Unknown, SOB, 04/20/17) Home Meds Active Scripts Apixaban Base (ELIQUIS) 2.5 Mg Tab, 2.5 MG PO BID for 30 Days, #60 TAB Prov:KIRILL CHOW MD 05/28/24 Clopidogrel Bisulfate (Plavix) 75 Mg Tab, 75 MG PO DAILY for NEW CARDIAC STENT for 30 Days, #30 TAB Prov:KIRILL CHOW MD 05/28/24 Alum & Mag Hydrox-Simethicone (Mylanta Maximum Strength 400-400-40 mg/5Ml) 1 Misty Misty, 1 MISTY PO BIDP PRN, #120 ML Prov:CATRACHITO CLARK PAC 05/07/24 Furosemide (Lasix) 40 Mg Tab, 40 MG PO BID, #60 TAB Prov:CATRACHITO CLARK PAC 05/07/24 Reported Medications Montelukast Sodium (MONTELUKAST SODIUM) 10 Mg Tab, 1 TAB PO DAILY for ASTHMA, #30 TAB 5 Refills 05/22/24 Dulaglutide (Trulicity) 1.5 Mg/0.5 Ml Inj, 1.5 MG SC QWEEKLY, INJ 05/22/24 Zinc Gluconate (Zinc) 50 Mg Tab, 50 MG PO DAILY, TAB 05/22/24 Tocopheryl Acetate, Dl-Alpha (Vitamin E) 180 Mg Cap, 180 MG PO DAILY, CAP 05/22/24 Docusate Sodium (Colace) 100 Mg Cap, 100 MG PO DAILY, CAP 05/22/24 Guaifenesin (Mucinex) 600 Mg Tab, 1 TAB PO BID, #14 TAB 05/22/24 Diclofenac Sodium (Topical) (Aleve Arthritis Pain) 1 % Gel, 1 % EX TID, GEL 05/22/24 Methocarbamol (Methocarbamol) 500 Mg Tab, 500 MG PO Q8HPRN PRN for MUSCLE SPASMS for 30 Days, MG 05/22/24 Ezetimibe (Zetia) 10 Mg Tab, 1 TAB PO DAILY, #30 TAB 5 Refills 05/22/24 Rosuvastatin Calcium (Crestor) 20 Mg Tab, 1 TAB PO DAILY, #30 TAB 5 Refills 05/22/24 Pancrelipase (Lipase-Protease- (CREON) 36,000 Unt Cap, 38218 UNT OR DAILY for TAKES 8 A DAY, CAP 05/22/24 Hydralazine Hcl (Hydralazine Hcl) 25 Mg Tab, 25 MG PO for CHF/BP, MG 05/22/24 Pantoprazole Sodium Sesquihydr (Protonix) 40 Mg Tab, 40 MG PO DAILY for STOMACH, #30 TAB 04/17/23 Triamcinolone Acetonide (Triamcinolone Acetonide) 0.1 % Pst, 1 APPLIC TOP BID, APPLIC 11/08/22 Ipratropium [place] Hfa (Atrovent Hfa) 17 Mcg Aer, 2 PUFF INH QID, #12.9 GRAMS 5 Refills 11/08/22 Loratadine (Claritin) 10 Mg Tab, 1 TAB PO DAILY, #30 TAB 5 Refills 11/08/22 Gabapentin (Gabapentin) 300 Mg Cap, 300 MG PO QAM for 1 morn, 1 noon, 2 bedtime for 30 Days, MG 11/08/22 Amitriptyline Hcl (Amitriptyline Hcl) 25 Mg Tab, 50 MG PO HS for 30 Days, MG 11/08/22 Venlafaxine Hcl (Venlafaxine Hcl Er) 150 Mg Cap, 1 CAP PO DAILY, #30 CAP 1 Refill 11/08/22 Acetaminophen (Tylenol) 325 Mg Cap, 500 MG PO QID, CAP 11/06/22 Ondansetron HCl (Ondansetron) 4 Mg Tab, 8 MG PO BIDP PRN for NAUSEA / VOMITING, TAB 11/06/22 Lorazepam (ATIVAN TABLET) 0.5 Mg Tb, 0.5 MG PO QIDP, TAB 11/06/22 Scopolamine (Scopolamine) 1 Mg/3 Days Dis, 1 MG TD, DIS 11/06/22 Folic Acid (Folic Acid) 1 Mg Tab, 1 MG PO DAILY for 30 Days, MG 11/06/22 Febuxostat (Uloric) 40 Mg Tab, 40 MG PO DAILY, TAB 11/06/22 Hydroxychloroquine Sulfate (Hydroxychloroquine Sulfat) 200 Mg Tab, 200 MG PO DAILY for 30 Days, MG 11/06/22 Insulin Lispro (Insulin Lispro Kwikpen) 100 Unit/Ml Inj, 100 UNIT SC, INJ 11/06/22 Baclofen (ED BACLOFEN) 10 Mg Tab, 20 MG PO QID, TAB 09/23/13 Information Source: Patient Mode of Arrival: EMS Severity: Moderate Timing: Days Duration: Intermittent Past Medical History PAST MEDICAL HISTORY: Anemia, Anxiety, Asthma, CHF, CKF, Depression, DM, Gout, High Lipids, HTN, TIA Surgical History: , [employer] 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 all 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 Hx Family History Family History: Reviewed,noncontributory to illness Social History Smoker: Non-Smoker Alcohol: Rarely Drugs: Denies Drug Use Lives In: Home Constitutional: denies: chills, diaphoresis, fatigue, fever, malaise, sweats, weakness, others EENTM: denies: blurred vision, double vision, ear bleeding, ear discharge, ear drainage, ear pain, ear ringing, eye pain, eye redness, hearing loss, mouth pain, mouth swelling, nasal discharge, nose bleeding, nose congestion, nose pain, photophobia, tearing, throat pain, throat swelling, voice changes, others Respiratory: reports: shortness of breath; denies: cough, hemoptysis, orthopnea, SOB at rest, SOB with excertion, stridor, wheezing, others Cardiovascular: denies: chest pain, dizzy spells, diaphoresis, Dyspnea on exertion, edema, irregular heart beat, left arm pain, lightheadedness, palpitations, PND, syncope, others Gastrointestinal: denies: abdomen distended, abdominal pain, blood streaked bowels, constipated, diarrhea, dysphagia, difficulty swallowing, hematemesis, melena, nausea, poor appetite, poor fluid intake, rectal bleeding, rectal pain, vomiting, others Genitourinary: denies: abnormal vagina bleeding, burning, dyspareunia, dysuria, flank pain, frequency, hematuria, incontinence, pain, , vagina d ischarge, urgency, others Neurological: denies: dizziness, fainting, headache, left sided numbness, left sided weakness, numbness, paresthesia, pre-existing deficit, right sided numbness, right sided weakness, seizure, speech problems, tingling, tremors, weakness, others Musculoskeletal: denies: back pain, gout, joint pain, joint swelling, muscle pain, muscle stiffness, neck pain, others Integumetry: denies: bruises, change in color, change in hair/nails, dryness, laceration, lesions, lumps, rash, wounds, others Allergic/Immunocompromised: denies: Difficulty Healing, Frequent Infections, Hives, Itching, others Hematologic/Lymphatic: denies: anemia, blood clots, easy bleeding, easy bruising, swollen glands, others Endocrine: denies: excessive hunger, excessive sweating, excessive thirst, excessive urination, flushing, intolerance to cold, intolerance to heat, unexplained weight gain, unexplained weight loss, others Psychiatric: denies: anxiety, bipolar disorder, depression, hopeless, panic disorder, schizophrenia, sleepless, suicidal, others Physical Exam General Appearance: No Apparent Distress, Normal, Obese HEENT: Normal ENT Inspection, Pharynx Normal, TMs Normal Neck: Full Range of Motion, Non-Tender, Normal, Normal Inspection Respiratory: Chest Non-Tender, Lungs Clear, No Accessory Muscle Use, No Respiratory Distress, Normal Breath Sounds Cardiovascular: No Edema, No JVD, No Murmur, No Gallop, Normal Peripheral Pulses, Regular Rate/Rhythm Breast Exam: Deferred Gastrointestinal: No Organomegaly, Non Tender, No Pulsatile Mass, Normal Bowel Sounds, Soft Genitalia: Deferred Pelvic: Deferred Rectal: Deferred Extremities: No calf tenderness, Normal capillary refill, Normal inspection, Normal range of motion, Non-tender, No pedal edema Musculoskeletal : Apperance: Normal Neurologic: Alert, referral specialist II-XII nml as Tested, No Motor Deficits, Normal Affect, Normal Mood, No Sensory Deficits Cerebellar Function: Normal Reflexes: Normal Skin: Dry, Normal Color, Warm Lymphatic: No Adenopathy Was a procedure done? Was a procedure done?: No Differential Dx Considerations may include: Anemia, electrolyte imbalance, CHF, asthma, COPD X-Ray, Labs, Meds, VS Vital Signs Date Time Temp Pulse Resp B/P (MAP) Pulse Ox O2 Delivery O2 Flow Rate FiO2 07/04/24 20:07 97.7 82 15 122/61 (81) 96 97.7 07/04/24 19:39 16 96 Room Air* 0 21 07/04/24 19:01 85 07/04/24 18:37 20 98 Room Air 07/04/24 18:37 98.4 85 20 115/63 (80) 98 Lab Test 07/04/24 20:01 07/04/24 19:38 Range/Units Troponin I High Sensitivity Pending 32 </=34 ng/L White Blood Count 6.2 4.4-10.8 10^3/uL Red Blood Count 4.04 4.0-5.20 10^6/uL Hemoglobin 11.2 L 12.2-16.2 g/dL Hematocrit 35.4 L 36.0-46.0 % Mean Corpuscular Volume 87.5 80.0-100.0 fL Mean Corpuscular Hemoglobin 27.8 L 28.0-32.0 pg Mean Corpuscular Hemoglobin Concent 31.8 L 32.0-36.0 g/dL Red Cell Distribution Width 17.8 H 11.8-14.3 % Platelet Count 292 140-450 10^3/uL Mean Platelet Volume 7.9 6.9-10.8 fL Neutrophils (%) (Auto) 75.6 37.0-80.0 % Lymphocytes (%) (Auto) 13.6 10.0-50.0 % Monocytes (%) (Auto) 7.4 0.0-12.0 % Eosinophils (%) (Auto) 2.8 0.0-7.0 % Basophils (%) (Auto) 0.6 0.0-2.0 % Neutrophils # (Auto) 4.7 1.6-8.6 10 ^3/uL Lymphocytes # (Auto) 0.8 0.4-5.4 10 ^3/uL Monocytes # (Auto) 0.5 0-1.3 10 ^3/uL Eosinophils # (Auto) 0.2 0-0.8 10 ^3/uL Basophils # (Auto) 0 0-0.2 10 ^3/uL Nucleated Red Blood Cells 0.1 % Sodium Level 138 136-145 mmol/L Potassium Level 4.7 3.5-5.1 mmol/L Chloride Level 106 98-107 mmol/L Carbon Dioxide Level 26 20-31 mmol/L Anion Gap 6 5-15 Blood Urea Nitrogen 36 H 9-23 mg/dL Creatinine 1.68 H 0.550-1.02 mg/dL Glomerular Filtration Rate Calc 33 >90 mL/min BUN/Creatinine Ratio 21.4 H 10.0-20.0 Serum Glucose 156 H 74-106 mg/dL Calcium Level 10.4 8.7-10.4 mg/dL B-Type Natriuretic Peptide 1220.62 0-100 pg/mL Current Medications Medications (Trade) Dose Ordered Sig/Maggie Route Start Time Stop Time Status Last Admin Ipratropium [place]dal (Atrovent Medneb) 0.5 mg ONCE ONCE NEB 07/04/24 19:15 07/04/24 19:16 DC 07/04/24 19:36 XY CHEST TWO VIEWS ROUTINE CLINICAL HISTORY: sob COMPARISON: XY CHEST TWO VIEWS ROUTINE on DOS: 05/28/24 TECHNIQUE: Frontal and lateral view of the chest was obtained FINDINGS: Lines and Tubes: None Lungs: Bibasilar infiltrates Pleura: No effusion. No pneumothorax. Cardiomediastinal contours: Cardiomegaly Bones: No acute osseous abnormality. IMPRESSION: 1. Cardiomegaly with bibasilar infiltrates findings may represent congestive failure or pneumonia. Time of 1ST Reevaluation: 19:32 Reevaluation 1ST: Unchanged Patient Education/Counseling: Diagnosis, Treatment Family Education/Counseling: No Family Present Departure 1 Departure Time of Disposition: 20:33 (Patient with a worsening shortness of breath and signs of CHF. Patient's x-ray vascular congestion elevated BNP. We will give patient Lasix and admit patient for further workup) Impression: Primary Impression: Shortness of breath Additional Impression: Acute on chronic heart failure with reduced ejection fraction (HFrEF, <= 40%) and combined systolic and diastolic dysfunction Disposition: ADMITTED INPATIENT Condition: Serious Critical Care Note Critical Care Time?: No Stability Stability form required: No Heart Score Heart Score: Heart Score Response (Comments) Value History N/A 0 EKG N/A 0 Age N/A 0 Risk Factors N/A 0 Troponin N/A 0 Total 0 I personally scribed for JESI KO MD ([email or web address]) on 07/04/24 at 19:41. Electronically submitted by Ramy Vargas ([employer]). I personally scribed for JESI KO MD ([email or web address]) on 07/04/24 at 20:28. Electronically submitted by Ramy Vargas ([employer]). JESI KO MD Jul 04, 2024 19:41
[2024-07-04 19:47] LABS: Basophils # (auto) 0 10 ^3/uL (0-0.2); Basophils % (auto) 0.6 % (0.0-2.0); Eosinophils # (auto) 0.2 10 ^3/uL (0-0.8); Eosinophils % (auto) 2.8 % (0.0-7.0); Hematocrit 35.4 % (36.0-46.0); Hemoglobin 11.2 g/dL (12.2-16.2); Lymphocytes # (auto) 0.8 10 ^3/uL (0.4-5.4); Lymphocytes % (auto) 13.6 % (10.0-50.0); Mean Corpuscular Hemoglobin 27.8 pg (28.0-32.0); Mean Corpuscular Hgb Conc. 31.8 g/dL (32.0-36.0); Mean Corpuscular Volume 87.5 fL (80.0-100.0); Monocytes # (auto) 0.5 10 ^3/uL (0-1.3); Monocytes % (auto) 7.4 % (0.0-12.0); Neutrophils # (auto) 4.7 10 ^3/uL (1.6-8.6); Neutrophils % (auto) 75.6 % (37.0-80.0); Nucleated Red Blood Cells % 0.1 %; Platelet Count (auto) 292 10^3/uL (140-450); Red Blood Cells 4.04 10^6/uL (4.0-5.20); Red Cell Distribution Width 17.8 % (11.8-14.3); White Blood Cell 6.2 10^3/uL (4.4-10.8)
[2024-07-04 19:58] LABS: Anion Gap 6 (5-15); Carbon Dioxide 26 mmol/L (20-31); Chloride 106 mmol/L (98-107); Potassium 4.7 mmol/L (3.5-5.1); Sodium 138 mmol/L (136-145)
[2024-07-04 20:04] LABS: BUN/Creatinine Ratio 21.4 (10.0-20.0)
[2024-07-04 20:05] LABS: Blood Urea Nitrogen 36 mg/dL (9-23); Calcium 10.4 mg/dL (8.7-10.4); Glucose 156 mg/dL (74-106)
--- NOTE | 2024-07-04 20:09 | DVH ---
XY CHEST TWO VIEWS ROUTINE CLINICAL HISTORY: sob COMPARISON: XY CHEST TWO VIEWS ROUTINE on DOS: 05/28/24 TECHNIQUE: Frontal and lateral view of the chest was obtained FINDINGS: Lines and Tubes: None Lungs: Bibasilar infiltrates Pleura: No effusion. No pneumothorax. Cardiomediastinal contours: Cardiomegaly Bones: No acute osseous abnormality. IMPRESSION: 1. Cardiomegaly with bibasilar infiltrates findings may represent congestive failure or pneumonia. HS:Y
[2024-07-04 21:09] VITALS: PULSE 85; RESP 18; O2SAT 94
[2024-07-04] MEDS: FUROSEMIDE 40 MG/4 ML VIAL IV ONE (22:26)
[2024-07-04] MEDS ORDERED: DOCUSATE SOD 100 MG CAP PO PRN (22:30)
[2024-07-04] MEDS ORDERED: DEXTROSE (50%) 50ML SYRG IV PRN (22:30)
[2024-07-04] MEDS ORDERED: ONDANSETRON HCL 4 MG/2 ML VIAL IV PRN (22:30)
[2024-07-04 22:44] VITALS: PULSE 90; RESP 19; O2SAT 93
[2024-07-04] MEDS: ALBUTEROL SULF 2.5 MG/0.5ML(0.5%) NEB SOLN ONE (23:05)
[2024-07-04] MEDS: IPRATROPIUM BROM 0.5 MG/2.5ML INH SOL NEB PRN (23:07)
[2024-07-04] MEDS: IPRATROPIUM BROM 0.5 MG/2.5ML INH SOL ONE (23:08)
[2024-07-04 23:12] VITALS: BP 128/64; PULSE 85; RESP 16; TEMP 97.7; O2SAT 96
[2024-07-04] MEDS: APIXABAN 2.5 MG TAB PO ONE (23:12)
[2024-07-04] MEDS ORDERED: NITROGLYCERIN 0.4 MG SL TAB SL PRN (23:15)
[2024-07-04] MEDS ORDERED: MORPHINE SULFATE INJ 2 MG/ml SYRG IV PRN (23:15)
--- NOTE | 2024-07-04 23:18 | DVHHP2 ---
History of Present Illness Reason for Visit: Acute exacerbation of congestive heart failure History of Present Illness The patient is a 68-year-old female with multiple past medical history including CHF, depression, DM, hypertension, and hyperlipidemia who presented to [facility] ED with complaint of shortness of breaths. Patient reports symptoms progressively get worse with increased work of breathing, SOB at rest, getting worse that prompted this visit. Patient was seen and evaluated in the ED, laboratory data shows WBC 6.2, platelets 272, sodium 138, potassium 4.7, BUN 36, creatinine 1.68, GFR 33, glucose 156, troponin 29, BNP 1220.62. Chest x-ray revealing cardiomegaly with bibasilar infiltrate finding may represent congestive failure or pneumonia. Patient was started on IV Lasix, please see medication orders section in the computer. On my assessment, patient denied chest pain, no headache, no dizziness, currently on oxygen, no nausea, no vomiting, no fever, no chills. Patient was admitted for further evaluation and medical management. Past Medical History Anemia, Anxiety, Asthma, CHF, CKF, Depression, DM, Gout, High Lipids, HTN, TIA Past Surgical History , PTCA Family History Reviewed, noncontributory to the management of this case. Past Social History The patient lives at home, denies smoking, alcohol or illicit drugs abuse. Review of Systems Constitutional: Yes: Weakness; No: Fever, Chills, Sweats, Malaise, Other Eyes: No: Pain, Vision change, Conjunctivae inflammation, Eyelid inflammation, Other, Redness ENT: No: Ear pain, Ear discharge, Nose pain, Nose discharge, Nose congestion, Mouth pain, Mouth swelling, Throat pain, Throat swelling, Other Respiratory: Shortness of breath, Other (SOB at rest); No: Cough, Dry, SOB with excertion, Wheezing, Hemoptysis, Pleuritic Pain, Sputum, Wheezing Cardiovascular: No: Chest Pain, Palpitations, Orthopnea, Paroxysmal Noc. Dyspnea, Edema, Lt Headedness, Other Gastrointestinal: No: Nausea, Vomiting, Abdominal Pain, Diarrhea, Constipation, Melena, Hematochezia, Other Genitourinary: No Dysuria, No Frequency, No Incontinence, No Hematuria, No Retention, No Other Musculoskeletal: No: other, neck pain, shoulder pain, arm pain, back pain, hand pain, leg pain, foot pain Skin: No: Rash, Lesions, Jaundice, Bruising, Other Neurological: No: Weakness, Numbness, Incoordination, Change in speech, Confusion, Seizures, Other Allergies: Coded Allergies: Egg-derived Products (Unverified Allergy, Severe, 01/28/23) NSAIDs (Unverified Allergy, Severe, 01/28/23) Oxycodone (Unverified Allergy, Severe, 01/28/23) Banana (Unverified Allergy, Intermediate, 01/28/23) Garlic (Unverified Allergy, Intermediate, 01/28/23) Oatmeal (Unverified Allergy, Intermediate, 01/28/23) Albuterol (Verified Allergy, Unknown, 05/22/24) Aspirin (Verified Allergy, Unknown, wheezing, 05/22/24) Caffeine (Verified Allergy, Unknown, 05/22/24) Chondroitin Sulfate A (Verified Allergy, Unknown, HIVES, 05/22/24) Cromolyn (Verified Allergy, Unknown, 05/22/24) Donepezil (Unverified Allergy, Unknown, 02/26/23) Epinephrine (Verified Allergy, Unknown, trouble breathing, 05/22/24) Erythromycin (Verified Allergy, Unknown, 05/22/24) Insulin Glargine (Verified Allergy, Unknown, 05/22/24) Levetiracetam (Unverified Allergy, Unknown, 02/26/23) Neomycin (Verified Allergy, Unknown, 05/22/24) Onion (Verified Allergy, Unknown, 05/22/24) Penicillins (Verified Allergy, Unknown, yeast infection, 05/22/24) Polymyxin B (Verified Allergy, Unknown, 05/22/24) Prednisone (Verified Allergy, Unknown, 05/22/24) Pseudoephedrine (Verified Allergy, Unknown, HIVES, 05/22/24) Regadenoson (Verified Allergy, Unknown, ANGINA, 05/22/24) Sulfa Antibiotics (Verified Allergy, Unknown, hives, 05/22/24) Theophylline (Verified Allergy, Unknown, 05/22/24) Triprolidine (Verified Allergy, Unknown, HIVES, 05/22/24) Codeine (Verified Adverse Reaction, Unknown, SOB, 05/22/24) Ibuprofen (Verified Adverse Reaction, Unknown, WHEEZING, 05/22/24) Lidocaine (Verified Adverse Reaction, Unknown, NV, 05/22/24) Uncoded Allergies: CHICKEN (Allergy, Severe, 01/28/23) DAIRY (Allergy, Severe, 01/28/23) LEAFY GRE[place] (Allergy, Severe, 01/28/23) PORK (Allergy, Severe, 01/28/23) BEEF (Allergy, Intermediate, 01/28/23) WHEAT FLOUR (Allergy, Intermediate, 01/28/23) WHOLE GRAIN (Allergy, Intermediate, 01/28/23) garlic (Allergy, Mild, 11/07/22) red meat (Allergy, Mild, nausea/ vomiting, 11/07/22) whole grains (Allergy, Mild, 11/07/22) CHONDROITION (Allergy, Unknown, HIVES SOB, 04/20/17) EGGS (Allergy, Unknown, 08/15/22) SALICYLATE (Allergy, Unknown, NV, 04/20/17) LETTUCE (Adverse Reaction, Intermediate, 01/28/23) TOMATOES (Adverse Reaction, Intermediate, 01/28/23) potato (Adverse Reaction, Intermediate, 04/20/24) per patient when she eats potatoes all of her joints swell and become painful STEROIDS (Adverse Reaction, Unknown, SOB, 04/20/17) Medications Current Medications Medications Dose Ordered Sig/Maggie Route Start Time Stop Time Status Last Admin Dose Admin Furosemide 40 mg DAILY IV 07/05/24 10:00 Ipratropium Mckenna 0.5 mg Q4HPRN PRN NEB 07/04/24 22:30 07/04/24 23:07 0.5 MG Famotidine 20 mg DAILY IV 07/05/24 10:00 Diagnostic Test (Pha) 1 strip ACHS 07/05/24 07:00 Insulin Human Regular ACHS SC 07/05/24 07:00 Dextrose 50 ml UD PRN IV 07/04/24 22:30 Sodium Chloride 10 ml Q8HR IV 07/05/24 06:00 Ondansetron HCl 4 mg Q4HP PRN IV 07/04/24 22:30 Docusate Sodium 100 mg BIDPRN PRN PO 07/04/24 22:30 Acetaminophen 650 mg Q6HP PRN PO 07/04/24 22:30 Folic Acid 1 mg DAILY PO 07/05/24 10:00 Exam Vital Signs Vital Signs Date Time Temp Pulse Resp B/P (MAP) Pulse Ox O2 Delivery O2 Flow Rate FiO2 07/04/24 23:12 96 Room Air* 0 21 07/04/24 23:09 20 07/04/24 22:26 138/73 (94) 07/04/24 21:09 97.9 85 97.9 General Appearance: Alert, Oriented X3, Cooperative, No acute distress HEENT: Atraumatic, PERRLA, EOMI, Mucous membr. moist/pink Respiratory: Normal air movement, Other (Diminished breath sounds) Cardiovascular: Regular rate, Normal S1, Normal S2, No murmurs Abdominal: Normal bowel sounds, Soft, No tenderness, No hepatospenomegaly, No masses Extremities: No clubbing, No cyanosis, No edema, Normal pulses, No tenderness/swelling Skin: No rashes, No breakdown, No significant lesion Neuro: Normal speech, Normal tone, Sensation intact, Cranial nerves 3-12 NL, Reflexes 2+ Psych/Mental Status: Mental status NL, Mood NL Labs/Xrays Labs Test 07/04/24 21:58 07/04/24 19:38 Range/Units Troponin I High Sensitivity 29 </=34 ng/L White Blood Count 6.2 4.4-10.8 10^3/uL Red Blood Count 4.04 4.0-5.20 10^6/uL Hemoglobin 11.2 L 12.2-16.2 g/dL Hematocrit 35.4 L 36.0-46.0 % Mean Corpuscular Volume 87.5 80.0-100.0 fL Mean Corpuscular Hemoglobin 27.8 L 28.0-32.0 pg Mean Corpuscular Hemoglobin Concent 31.8 L 32.0-36.0 g/dL Red Cell Distribution Width 17.8 H 11.8-14.3 % Platelet Count 292 140-450 10^3/uL Mean Platelet Volume 7.9 6.9-10.8 fL Neutrophils (%) (Auto) 75.6 37.0-80.0 % Lymphocytes (%) (Auto) 13.6 10.0-50.0 % Monocytes (%) (Auto) 7.4 0.0-12.0 % Eosinophils (%) (Auto) 2.8 0.0-7.0 % Basophils (%) (Auto) 0.6 0.0-2.0 % Neutrophils # (Auto) 4.7 1.6-8.6 10 ^3/uL Lymphocytes # (Auto) 0.8 0.4-5.4 10 ^3/uL Monocytes # (Auto) 0.5 0-1.3 10 ^3/uL Eosinophils # (Auto) 0.2 0-0.8 10 ^3/uL Basophils # (Auto) 0 0-0.2 10 ^3/uL Nucleated Red Blood Cells 0.1 % Sodium Level 138 136-145 mmol/L Potassium Level 4.7 3.5-5.1 mmol/L Chloride Level 106 98-107 mmol/L Carbon Dioxide Level 26 20-31 mmol/L Anion Gap 6 5-15 Blood Urea Nitrogen 36 H 9-23 mg/dL Creatinine 1.68 H 0.550-1.02 mg/dL Glomerular Filtration Rate Calc 33 >90 mL/min BUN/Creatinine Ratio 21.4 H 10.0-20.0 Serum Glucose 156 H 74-106 mg/dL Calcium Level 10.4 8.7-10.4 mg/dL B-Type Natriuretic Peptide 1220.62 0-100 pg/mL PATIENT: ASHLEIGH SINGH ACCT: [id number] UNIT: [id number] : 1955 LOC: ER ROOM / BED: / AGE / SEX: 68 / F ADM STATUS: REG ER SERVICE 12 ORDERING PHYSICIAN: JESI KO MD PROCEDURE(s): CXR2 - CHEST TWO VIEWS ROUTINE REASON: sob ORDER NUMBER(s): [id number], ACCESSION NUMBER(s): [id number] XY CHEST TWO VIEWS ROUTINE CLINICAL HISTORY: sob COMPARISON: XY CHEST TWO VIEWS ROUTINE on DOS: 05/28/24 TECHNIQUE: Frontal and lateral view of the chest was obtained FINDINGS: Lines and Tubes: None Lungs: Bibasilar infiltrates Pleura: No effusion. No pneumothorax. Cardiomediastinal contours: Cardiomegaly Bones: No acute osseous abnormality. IMPRESSION: 1. Cardiomegaly with bibasilar infiltrates findings may represent congestive failure or pneumonia. Assessment/Plan Assessment/Plan Acute exacerbation of congestive heart failure Acute renal injury Generalized weakness Diabetes mellitus with hyperglycemia Plan 1. Admit to telemetry unit 2. Breathing treatment 3. Pain control management 4. Management of fluids and electrolytes 5. Consultation for Cardiology 6. Diagnostic tests chest x-ray 7. DVT prophylaxis-on Eliquis 8. Repeat labs CBC, CMP in a.m. 9. Continue with current medical management 10. Treatment plan discussed with patient and RN. Patient verbalized understand ing. Plan discussed with: Patient, Other (RN) My Orders Orders - CHARISSE HOUSE DNP Procedure Category Date Status Time Consistent DIET 07/05/24 Transmitted Carb(Ccho)Diabetes Breakfast Furosemide Injection PHA 07/05/24 In Process (Lasix Injection) 10:00 Ipratropium Medneb PHA 07/04/24 In Process (Atrovent Medneb) 22:30 * Cardiology Consult CONS 07/04/24 Transmitted 22:29 Famotidine Injection PHA 07/05/24 In Process (Pepcid Injection) 10:00 Glucose Blood PHA 07/05/24 In Process (Accu-Chek Comfort 07:00 Insulin R (Human) PHA 07/05/24 In Process (Insulin R) 07:00 Dextrose 50% Syringe PHA 07/04/24 In Process 22:30 Allergies RAINE 07/04/24 In Process 22:29 Code Status CODE 07/04/24 Transmitted 22:29 Sodium Chloride Lock PHA 07/05/24 In Process (Saline Lock Ns) 06:00 Oxygen Per Hour RT 07/04/24 Transmitted 22:29 Ondansetron Hcl PHA 07/04/24 In Process (Zofran) 22:30 Docusate Sodium PHA 07/04/24 In Process Capsule (Colace 22:30 Complete Blood Count LAB 07/05/24 Verified 04:00 Comprehensive LAB 07/05/24 Verified Metabolic Panel 04:00 Condition: Serious RAINE 07/04/24 In Process 22:29 Acetaminophen Tablet PHA 07/04/24 In Process (Tylenol Tablet) 22:30 Bedrest With Bathroom RAINE 07/04/24 In Process Privileg 22:29 Sequential RAINE 07/04/24 In Process Compression Device Folic Acid Tablet PHA 07/05/24 In Process 10:00 Admit ADMIT 07/04/24 Verified 23:13 Nitroglycerin PHA 07/04/24 Verified Sublingual (Ntrostat 23:15 Morphine Sulfate PHA 07/04/24 Verified Injection 23:15 Notify Of Changes RAINE 07/04/24 Verified From Base 23:13 [employer]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
[2024-07-04 23:47] LABS: Urine Bacteria None Seen /hpf (None Seen)
[2024-07-05] MEDS: ACETAMINOPHEN 325 MG TAB PO PRN (00:09)
[2024-07-05 00:14] LABS: Urine Amorphous Crystal FEW /hpf (None Seen); Urine Blood Negative /uL (Negative); Urine Clarity Clear (Clear); Urine Color Light-Yellow (Yellow); Urine Protein, UAD Negative (Negative); Urine Squamous Epithelial Cell FEW /hpf (<5); Urine Urobilinogen Normal (Negative); Urine WBC 1 /hpf (0 - 5)
[2024-07-05] MEDS: SODIUM CHLOR 0.9% PF (SALINE LOCK) 10ML VIAL/SYR IV SCH (05:59)
[2024-07-05 06:38] LABS: Albumin 4.1 g/dL (3.2-4.8); Alkaline Phosphatase 74 U/L (46-116); Anion Gap 7 (5-15); Aspartate Aminotransferase 19 U/L (13-40); BUN/Creatinine Ratio 16.1 (10.0-20.0); Bilirubin, Total 0.4 mg/dL (0.2-1.0); Calcium 10.4 mg/dL (8.7-10.4); Carbon Dioxide 27 mmol/L (20-31); Potassium 4.2 mmol/L (3.5-5.1); Sodium 141 mmol/L (136-145); Total Protein 6.7 g/dL (5.7-8.2)
[2024-07-05 06:39] LABS: Basophils # (auto) 0 10 ^3/uL (0-0.2); Basophils % (auto) 0.9 % (0.0-2.0); Eosinophils # (auto) 0.3 10 ^3/uL (0-0.8); Eosinophils % (auto) 5.6 % (0.0-7.0); Hematocrit 34.3 % (36.0-46.0); Hemoglobin 10.9 g/dL (12.2-16.2); Lymphocytes # (auto) 1.1 10 ^3/uL (0.4-5.4); Lymphocytes % (auto) 20.6 % (10.0-50.0); Mean Corpuscular Hemoglobin 27.8 pg (28.0-32.0); Mean Corpuscular Hgb Conc. 31.8 g/dL (32.0-36.0); Mean Corpuscular Volume 87.4 fL (80.0-100.0); Monocytes # (auto) 0.4 10 ^3/uL (0-1.3); Monocytes % (auto) 7.8 % (0.0-12.0); Neutrophils # (auto) 3.5 10 ^3/uL (1.6-8.6); Neutrophils % (auto) 65.1 % (37.0-80.0); Nucleated Red Blood Cells % 0.2 %; Platelet Count (auto) 271 10^3/uL (140-450); Red Blood Cells 3.93 10^6/uL (4.0-5.20); Red Cell Distribution Width 17.8 % (11.8-14.3); White Blood Cell 5.3 10^3/uL (4.4-10.8)
[2024-07-05 06:48] VITALS: PULSE 83; RESP 14; O2SAT 99
[2024-07-05 06:50] LABS: Alanine Aminotransferase < 9 U/L (7-40); Blood Urea Nitrogen 26 mg/dL (9-23); Chloride 107 mmol/L (98-107); Glucose 120 mg/dL (74-106)
[2024-07-05 06:53] VITALS: PULSE 85; RESP 16; O2SAT 100
[2024-07-05] MEDS: ACCU-CHEK COMFORT CURVE STRIP VI SCH (06:55)
[2024-07-05] MEDS: InsuLIN REG 1unit/0.01ml Soln (100units/ml) SC SCH (06:55)
[2024-07-05 07:41] VITALS: PULSE 84; RESP 22; O2SAT 98
[2024-07-05] MEDS: FOLIC ACID 1 MG TAB PO SCH (09:50)
[2024-07-05] MEDS: FAMOTIDINE (10MG/ML) 2ML VL IV SCH (09:50)
[2024-07-05] MEDS ORDERED: FUROSEMIDE 40 MG/4 ML VIAL IV SCH ×4 (10:00→18:00)
[2024-07-05] MEDS: FUROSEMIDE 40 MG/4 ML VIAL IV ONE (10:02)
[2024-07-05] MEDS: CLOPIDOGREL BISULFATE 75 MG TAB PO SCH (10:46)
[2024-07-05] MEDS: APIXABAN 5 MG TAB PO SCH (10:46)
--- NOTE | 2024-07-05 10:53 | DVHINCON2 ---
RUTHY COREAS [facility] 07/05/24 1053: Date Seen: Jul 05, 2024 Referring Physician GABRIEL Michel Reason for Consultation Acute exacerbation of CHF History of Present Illness This is a 68-year-old female who presented to the emergency room via EMS with a chief complaint of shortness of breath for five days. States she was referred by her PCP to attend the emergency room. Complains of progressive shortness of breath associated with DUMONT, PND, and orthopnea. She underwent a 12 lead electrocardiogram revealing a sinus rhythm. Serial troponin levels are negative. Follows up in the outpatient setting with Dr. Pope with upcoming appointment next week. Significant medical history includes coronary artery disease status post PCI of the proximal LAD x1 IVETTE (04/2023) status post severe in-stent restenosis of the distal part of the LAD stent (05/2024) on Plavix, paroxysmal atrial fibrillation on low-dose Eliquis, ischemic cardiomyopathy with LVEF of 25%, history of pericardectomy, chronic pericarditis, rheumatoid arthritis, COPD, insulin-dependent diabetes mellitus, chronic kidney disease, dyslipidemia, depression, vertigo, dementia, and obesity. Past Medical History Past medical history reviewed. No other significant than mentioned above. Past Surgical History PCI to the proximal LAD on 04/17/2023 In-stent restenosis/thrombosis of the mid LAD Pericardectomy Lumbar fusion Right thumb Family History: Cardiovascular disease G8 FATHER Chronic obstructive pulmonary disease G8 FATHER Diabetes mellitus G8 MOTHER G8 SISTER Family History Family history reviewed. Social History Denies the use of illicit drugs, alcohol, or tobacco use. Allergies: Coded Allergies: Egg-derived Products (Unverified Allergy, Severe, 01/28/23) NSAIDs (Unverified Allergy, Severe, 01/28/23) Oxycodone (Unverified Allergy, Severe, 01/28/23) Banana (Unverified Allergy, Intermediate, 01/28/23) Garlic (Unverified Allergy, Intermediate, 01/28/23) Oatmeal (Unverified Allergy, Intermediate, 01/28/23) Albuterol (Verified Allergy, Unknown, 05/22/24) Aspirin (Verified Allergy, Unknown, wheezing, 05/22/24) Caffeine (Verified Allergy, Unknown, 05/22/24) Chondroitin Sulfate A (Verified Allergy, Unknown, HIVES, 05/22/24) Cromolyn (Verified Allergy, Unknown, 05/22/24) Donepezil (Unverified Allergy, Unknown, 02/26/23) Epinephrine (Verified Allergy, Unknown, trouble breathing, 05/22/24) Erythromycin (Verified Allergy, Unknown, 05/22/24) Insulin Glargine (Verified Allergy, Unknown, 05/22/24) Levetiracetam (Unverified Allergy, Unknown, 02/26/23) Neomycin (Verified Allergy, Unknown, 05/22/24) Onion (Verified Allergy, Unknown, 05/22/24) Penicillins (Verified Allergy, Unknown, yeast infection, 05/22/24) Polymyxin B (Verified Allergy, Unknown, 05/22/24) Prednisone (Verified Allergy, Unknown, 05/22/24) Pseudoephedrine (Verified Allergy, Unknown, HIVES, 05/22/24) Regadenoson (Verified Allergy, Unknown, ANGINA, 05/22/24) Soybean Oil (Verified Allergy, Unknown, 07/05/24) Soybean Phosphatides (Verified Allergy, Unknown, 07/05/24) Soybean-containing Drug Products (Verified Allergy, Unknown, 07/05/24) Sulfa Antibiotics (Verified Allergy, Unknown, hives, 05/22/24) Theophylline (Verified Allergy, Unknown, 05/22/24) Triprolidine (Verified Allergy, Unknown, HIVES, 05/22/24) Codeine (Verified Adverse Reaction, Unknown, SOB, 05/22/24) Ibuprofen (Verified Adverse Reaction, Unknown, WHEEZING, 05/22/24) Lidocaine (Verified Adverse Reaction, Unknown, NV, 05/22/24) Uncoded Allergies: CHICKEN (Allergy, Severe, 01/28/23) DAIRY (Allergy, Severe, 01/28/23) LEAFY GREENS (Allergy, Severe, 01/28/23) PORK (Allergy, Severe, 01/28/23) BEEF (Allergy, Intermediate, 01/28/23) WHEAT FLOUR (Allergy, Intermediate, 01/28/23) WHOLE GRAIN (Allergy, Intermediate, 01/28/23) garlic (Allergy, Mild, 11/07/22) red meat (Allergy, Mild, nausea/ vomiting, 11/07/22) whole grains (Allergy, Mild, 11/07/22) CHONDROITION (Allergy, Unknown, HIVES SOB, 04/20/17) EGGS (Allergy, Unknown, 08/15/22) SALICYLATE (Allergy, Unknown, NV, 04/20/17) LETTUCE (Adverse Reaction, Intermediate, 01/28/23) TOMATOES (Adverse Reaction, Intermediate, 01/28/23) potato (Adverse Reaction, Intermediate, 04/20/24) per patient when she eats potatoes all of her joints swell and become painful STEROIDS (Adverse Reaction, Unknown, SOB, 04/20/17) Home Meds Active Scripts Apixaban Base (ELIQUIS) 2.5 Mg Tab, 2.5 MG PO BID for 30 Days, #60 TAB Prov:KIRILL CHOW MD 05/28/24 Clopidogrel Bisulfate (Plavix) 75 Mg Tab, 75 MG PO DAILY for NEW CARDIAC STENT for 30 Days, #30 TAB Prov:KIRILL CHOW MD 05/28/24 Alum & Mag Hydrox-Simethicone (Mylanta Maximum Strength 400-400-40 mg/5Ml) 1 Misty Misty, 1 MISTY PO BIDP PRN, #120 ML Prov:CATRACHITO CLARK PAC 05/07/24 Furosemide (Lasix) 40 Mg Tab, 40 MG PO BID, #60 TAB Prov:CATRACHITO CLRAK PAC 05/07/24 Reported Medications Montelukast Sodium (MONTELUKAST SODIUM) 10 Mg Tab, 1 TAB PO DAILY for ASTHMA, #30 TAB 5 Refills 05/22/24 Dulaglutide (Trulicity) 1.5 Mg/0.5 Ml Inj, 1.5 MG SC QWEEKLY, INJ 05/22/24 Zinc Gluconate (Zinc) 50 Mg Tab, 50 MG PO DAILY, TAB 05/22/24 Tocopheryl Acetate, Dl-Alpha (Vitamin E) 180 Mg Cap, 180 MG PO DAILY, CAP 05/22/24 Docusate Sodium (Colace) 100 Mg Cap, 100 MG PO DAILY, CAP 05/22/24 Guaifenesin (Mucinex) 600 Mg Tab, 1 TAB PO BID, #14 TAB 05/22/24 Diclofenac Sodium (Topical) (Aleve Arthritis Pain) 1 % Gel, 1 % EX TID, GEL 05/22/24 Methocarbamol (Methocarbamol) 500 Mg Tab, 500 MG PO Q8HPRN PRN for MUSCLE SPASMS for 30 Days, MG 05/22/24 Ezetimibe (Zetia) 10 Mg Tab, 1 TAB PO DAILY, #30 TAB 5 Refills 05/22/24 Rosuvastatin Calcium (Crestor) 20 Mg Tab, 1 TAB PO DAILY, #30 TAB 5 Refills 05/22/24 Pancrelipase (Lipase-Protease- (CREON) 36,000 Unt Cap, 93905 UNT OR DAILY for TAKES 8 A DAY, CAP 05/22/24 Hydralazine Hcl (Hydralazine Hcl) 25 Mg Tab, 25 MG PO for CHF/BP, MG 05/22/24 Pantoprazole Sodium Sesquihydr (Protonix) 40 Mg Tab, 40 MG PO DAILY for STOMACH, #30 TAB 04/17/23 Triamcinolone Acetonide (Triamcinolone Acetonide) 0.1 % Pst, 1 APPLIC TOP BID, APPLIC 11/08/22 Ipratropium Lackey Hfa (Atrovent Hfa) 17 Mcg Aer, 2 PUFF INH QID, #12.9 GRAMS 5 Refills 11/08/22 Loratadine (Claritin) 10 Mg Tab, 1 TAB PO DAILY, #30 TAB 5 Refills 11/08/22 Gabapentin (Gabapentin) 300 Mg Cap, 300 MG PO QAM for 1 morn, 1 noon, 2 bedtime for 30 Days, MG 11/08/22 Amitriptyline Hcl (Amitriptyline Hcl) 25 Mg Tab, 50 MG PO HS for 30 Days, MG 11/08/22 Venlafaxine Hcl (Venlafaxine Hcl Er) 150 Mg Cap, 1 CAP PO DAILY, #30 CAP 1 Refill 11/08/22 Acetaminophen (Tylenol) 325 Mg Cap, 500 MG PO QID, CAP 11/06/22 Ondansetron HCl (Ondansetron) 4 Mg Tab, 8 MG PO BIDP PRN for NAUSEA / VOMITING, TAB 11/06/22 Lorazepam (ATIVAN TABLET) 0.5 Mg Tb, 0.5 MG PO QIDP, TAB 11/06/22 Scopolamine (Scopolamine) 1 Mg/3 Days Dis, 1 MG TD, DIS 11/06/22 Folic Acid (Folic Acid) 1 Mg Tab, 1 MG PO DAILY for 30 Days, MG 11/06/22 Febuxostat (Uloric) 40 Mg Tab, 40 MG PO DAILY, TAB 11/06/22 Hydroxychloroquine Sulfate (Hydroxychloroquine Sulfat) 200 Mg Tab, 200 MG PO DAILY for 30 Days, MG 11/06/22 Insulin Lispro (Insulin Lispro Kwikpen) 100 Unit/Ml Inj, 100 UNIT SC, INJ 11/06/22 Baclofen (ED BACLOFEN) 10 Mg Tab, 20 MG PO QID, TAB 09/23/13 Home Meds Home medications reviewed. Current Medications Current Medications Medications (Trade) Dose Ordered Sig/Maggie Route PRN Reason Start Time Stop Time Status Last Admin Furosemide (Lasix Injection) 40 mg DAILY IV 07/05/24 10:00 07/05/24 09:39 DC Ipratropium Lackey (Atrovent Medneb) 0.5 mg Q4HPRN PRN NEB SHORTNESS OF BREATH 07/04/24 22:30 07/05/24 06:48 Famotidine (Pepcid Injection) 20 mg DAILY IV 07/05/24 10:00 07/05/24 09:50 Diagnostic Test (Pha) (Accu-Chek Comfort Curve T) 1 strip ACHS 07/05/24 07:00 07/05/24 06:55 Insulin Human Regular (InsuLIN R) ACHS SC 07/05/24 07:00 Dextrose 50 ml UD PRN IV Blood Sugar LESS THAN 60 07/04/24 22:30 Sodium Chloride (Saline Lock Ns) 10 ml Q8HR IV 07/05/24 06:00 Ondansetron HCl (Zofran) 4 mg Q4HP PRN IV NAUSEA / VOMITING 07/04/24 22:30 Docusate Sodium (Colace Capsule) 100 mg BIDPRN PRN PO FOR CONSTIPATION 07/04/24 22:30 Acetaminophen (Tylenol Tablet) 650 mg Q6HP PRN PO PAIN SCALE 1-3 OR TEMP>100.4 07/04/24 22:30 07/05/24 08:53 Folic Acid 1 mg DAILY PO 07/05/24 10:00 07/05/24 09:50 Nitroglycerin (Ntrostat Sublingual) 0.4 mg Q5MINP PRN SL FOR CHEST PAIN 07/04/24 23:15 Morphine Sulfate 2 mg Q30M PRN IV FOR CHEST PAIN 07/04/24 23:15 Furosemide (Lasix Injection) 40 mg BID IV 07/05/24 10:00 UNV Clopidogrel Bisulfate (Plavix) 75 mg DAILY PO 07/05/24 10:00 UNV Apixaban (Eliquis) 5 mg BID PO 07/05/24 10:00 UNV Furosemide (Lasix Injection) 40 mg DAILY IV 07/05/24 11:30 UNV Review of Systems Constitutional: No symptom reported Ears, Nose, & Throat: No symptom reported Eyes: No symptom reported Neurological: No symptoms reported Pulmonary/Respiratory: SOB, DUMONT, PND, orthopnea Cardiovascular: No symptom reported Gastrointestinal: No symptom reported Genitourinary: No symptom reported Musculoskeletal: No symptom reported Skin: No symptom reported Psychiatric: No symptom reported Endocrine: No symptom reported Hemotologic/Lymphatic: No symptom reported Vital Signs Vital Signs Date Time Temp Pulse Resp B/P (MAP) Pulse Ox O2 Delivery O2 Flow Rate FiO2 07/05/24 09:00 89 19 134/70 (91) 93 07/05/24 07:41 97.9 97.9 07/05/24 07:41 Nasal Cannula* 2 28 Physical Exam General Appearance: Cooperative. Well developed. Obese. In no acute distress Head Exam: Normal inspection Neck Exam: Normal inspection. Non-tender. Normal alignment Pulmonary/Respiratory: Chest non-tender. Diminished bilateral breath sounds Cardiovascular/Chest: Regular rate and rhythm. S1, S2. No murmurs. No JVD. Peripheral Pulses: 2+ Radial (R). 2+ Radial (L). 2+ Pedal (R). 2+ Pedal (L) Abdominal Exam: Normal bowel sounds. Soft. Nontender. No hepatospenomegaly. No masses Ankle Exam: Negative ankle edema Lower extremities: Negative lower extremity edema Neuro/Mental Status: A&O x4. Coherent Thoughts/Psych: Normal thought pattern. Appropriate mood and affect. Appearance: In no acute distress Skin Exam: Normal inspection. Normal color. Warm. Dry Labs/Diagnostic Data Labs Test 07/05/24 06:46 07/05/24 05:41 07/04/24 23:45 07/04/24 21:58 Range/Units POC Glucose 110 H 70-106 mg/dl White Blood Count 5.3 4.4-10.8 10^3/uL Red Blood Count 3.93 L 4.0-5.20 10^6/uL Hemoglobin 10.9 L 12.2-16.2 g/dL Hematocrit 34.3 L 36.0-46.0 % Mean Corpuscular Volume 87.4 80.0-100.0 fL Mean Corpuscular Hemoglobin 27.8 L 28.0-32.0 pg Mean Corpuscular Hemoglobin Concent 31.8 L 32.0-36.0 g/dL Red Cell Distribution Width 17.8 H 11.8-14.3 % Platelet Count 271 140-450 10^3/uL Mean Platelet Volume 8.1 6.9-10.8 fL Neutrophils (%) (Auto) 65.1 37.0-80.0 % Lymphocytes (%) (Auto) 20.6 10.0-50.0 % Monocytes (%) (Auto) 7.8 0.0-12.0 % Eosinophils (%) (Auto) 5.6 0.0-7.0 % Basophils (%) (Auto) 0.9 0.0-2.0 % Neutrophils # (Auto) 3.5 1.6-8.6 10 ^3/uL Lymphocytes # (Auto) 1.1 0.4-5.4 10 ^3/uL Monocytes # (Auto) 0.4 0-1.3 10 ^3/uL Eosinophils # (Auto) 0.3 0-0.8 10 ^3/uL Basophils # (Auto) 0 0-0.2 10 ^3/uL Nucleated Red Blood Cells 0.2 % Sodium Level 141 136-145 mmol/L Potassium Level 4.2 3.5-5.1 mmol/L Chloride Level 107 98-107 mmol/L Carbon Dioxide Level 27 20-31 mmol/L Anion Gap 7 5-15 Blood Urea Nitrogen 26 #H 9-23 mg/dL Creatinine 1.61 H 0.550-1.02 mg/dL Glomerular Filtration Rate Calc 35 >90 mL/min BUN/Creatinine Ratio 16.1 10.0-20.0 Serum Glucose 120 H 74-106 mg/dL Calcium Level 10.4 8.7-10.4 mg/dL Total Bilirubin 0.4 0.2-1.0 mg/dL Aspartate Amino Transferase (AST) 19 13-40 U/L Alanine Aminotransferase (ALT) < 9 7-40 U/L Alkaline Phosphatase 74 46-116 U/L Total Protein 6.7 5.7-8.2 g/dL Albumin 4.1 3.2-4.8 g/dL Urine Color Light-yellow Yellow Urine Clarity Clear Clear Urine pH 6.0 5.0-9.0 Urine Specific [place] 1.010 1.001-1.035 Urine Protein Negative Negative Urine Ketones Negative Negative Urine Blood Negative Negative /uL Urine Nitrite Negative Negative Urine Bilirubin Negative Negative Urine Urobilinogen Normal Negative mg/dL Urine Leukocyte Esterase Negative Negative /uL Urine RBC 1 0 - 4 /hpf Urine WBC 1 0 - 5 /hpf Urine Squamous Epithelial Cells Few <5 /hpf Urine Amorphous Crystals Few None Seen /hpf Urine Bacteria None seen None Seen /hpf Urine Glucose Normal Normal mg/dL Troponin I High Sensitivity 29 </=34 ng/L Test 07/04/24 19:38 Range/Units B-Type Natriuretic Peptide 1220.62 0-100 pg/mL Assessment Acute on chronic decompensated HFrEF, NYHA Class III Ischemic cardiomyopathy with LVEF of 25% CAD s/p PCI of the LAD x1 IVETTE (04/2023) s/p severe in-stent restenosis of the LAD stent (05/2024), on Plavix Paroxysmal atrial fibrillation, on low-dose Eliquis Rheumatoid arthritis Hx of pericardial effusion Chronic pericarditis CKD stage IIIb Hypertension Dyslipidemia Prediabetes Obesity Plan/Recommendation (Dr. Bryant) * Recent transthoracic echocardiogram revealed EF 25% * GDMT for CHF as renal function permits. Initiate Coreg * Preload and afterload reduction. Strict I&Os. Fluid restriction * Continue Plavix therapy and low-dose Eliquis * Antiarrhythmic held given bradycardic episodes in the past * Continue statin and ezetimibe for a target LDL < 50 mg/dL * Follow-up with Dr. Pope as scheduled the following week * Counseled on Mediterranean diet, weight loss, and medical compliance Thank you for allowing us to participate in this patient's care. Please call if you have any questions or concerns. This medical document was created using an electronic medical record system with voice recognition software and computerized dictation system. Although this document has been carefully reviewed, there might still be some phonetic and typographical errors. Occasional wrong-word or ``sound-alike substitutions may have occurred due to the inherent limitations of voice recognition software. These areas are purely typographical due to imperfections of the software programs and do not reflect any compromise in the patient's medical care. Please read the chart carefully and recognize, using context, where these substitutions have occurred. Plan discussed with: Patient, Other NYHA Physical activity limitations: Class3(Marked) ordinary (activity causes symtoms) Date of Service: Jul 05, 2024 Billing Provider: RUTHY COREAS Cardiology Common Codes: 39646-[id number] INP/OBS CARE (High) ZHANG BRYANT MD 07/05/24 1412: Family History: Cardiovascular disease G8 FATHER Chronic obstructive pulmonary disease G8 FATHER Diabetes mellitus G8 MOTHER G8 SISTER Allergies: Coded Allergies: Egg-derived Products (Unverified Allergy, Severe, 01/28/23) NSAIDs (Unverified Allergy, Severe, 01/28/23) Oxycodone (Unverified Allergy, Severe, 01/28/23) Banana (Unverified Allergy, Intermediate, 01/28/23) Garlic (Unverified Allergy, Intermediate, 01/28/23) Oatmeal (Unverified Allergy, Intermediate, 01/28/23) Albuterol (Verified Allergy, Unknown, 05/22/24) Aspirin (Verified Allergy, Unknown, wheezing, 05/22/24) Caffeine (Verified Allergy, Unknown, 05/22/24) Chondroitin Sulfate A (Verified Allergy, Unknown, HIVES, 05/22/24) Cromolyn (Verified Allergy, Unknown, 05/22/24) Donepezil (Unverified Allergy, Unknown, 02/26/23) Epinephrine (Verified Allergy, Unknown, trouble breathing, 05/22/24) Erythromycin (Verified Allergy, Unknown, 05/22/24) Insulin Glargine (Verified Allergy, Unknown, 05/22/24) Levetiracetam (Unverified Allergy, Unknown, 02/26/23) Neomycin (Verified Allergy, Unknown, 05/22/24) Onion (Verified Allergy, Unknown, 05/22/24) Penicillins (Verified Allergy, Unknown, yeast infection, 05/22/24) Polymyxin B (Verified Allergy, Unknown, 05/22/24) Prednisone (Verified Allergy, Unknown, 05/22/24) Pseudoephedrine (Verified Allergy, Unknown, HIVES, 05/22/24) Regadenoson (Verified Allergy, Unknown, ANGINA, 05/22/24) Soybean Oil (Verified Allergy, Unknown, 07/05/24) Soybean Phosphatides (Verified Allergy, Unknown, 07/05/24) Soybean-containing Drug Products (Verified Allergy, Unknown, 07/05/24) Sulfa Antibiotics (Verified Allergy, Unknown, hives, 05/22/24) Theophylline (Verified Allergy, Unknown, 05/22/24) Triprolidine (Verified Allergy, Unknown, HIVES, 05/22/24) Codeine (Verified Adverse Reaction, Unknown, SOB, 05/22/24) Ibuprofen (Verified Adverse Reaction, Unknown, WHEEZING, 05/22/24) Lidocaine (Verified Adverse Reaction, Unknown, NV, 05/22/24) Uncoded Allergies: CHICKEN (Allergy, Severe, 01/28/23) DAIRY (Allergy, Severe, 01/28/23) LEAFY GREENS (Allergy, Severe, 01/28/23) PORK (Allergy, Severe, 01/28/23) BEEF (Allergy, Intermediate, 01/28/23) WHEAT FLOUR (Allergy, Intermediate, 01/28/23) WHOLE GRAIN (Allergy, Intermediate, 01/28/23) garlic (Allergy, Mild, 11/07/22) red meat (Allergy, Mild, nausea/ vomiting, 11/07/22) whole grains (Allergy, Mild, 11/07/22) CHONDROITION (Allergy, Unknown, HIVES SOB, 04/20/17) EGGS (Allergy, Unknown, 08/15/22) SALICYLATE (Allergy, Unknown, NV, 04/20/17) LETTUCE (Adverse Reaction, Intermediate, 01/28/23) TOMATOES (Adverse Reaction, Intermediate, 01/28/23) potato (Adverse Reaction, Intermediate, 04/20/24) per patient when she eats potatoes all of her joints swell and become painful STEROIDS (Adverse Reaction, Unknown, SOB, 04/20/17) Home Meds Active Scripts Apixaban Base (ELIQUIS) 2.5 Mg Tab, 2.5 MG PO BID for 30 Days, #60 TAB Prov:KIRILL CHOW MD 05/28/24 Clopidogrel Bisulfate (Plavix) 75 Mg Tab, 75 MG PO DAILY for NEW CARDIAC STENT for 30 Days, #30 TAB Prov:KIRILL CHOW MD 05/28/24 Alum & Mag Hydrox-Simethicone (Mylanta Maximum Strength 400-400-40 mg/5Ml) 1 Misty Misty, 1 MISTY PO BIDP PRN, #120 ML Prov:CATRACHITO CLARK PAC 05/07/24 Furosemide (Lasix) 40 Mg Tab, 40 MG PO BID, #60 TAB Prov:CATRACHITO CLARK PAC 05/07/24 Reported Medications Montelukast Sodium (MONTELUKAST SODIUM) 10 Mg Tab, 1 TAB PO DAILY for ASTHMA, #30 TAB 5 Refills 05/22/24 Dulaglutide (Trulicity) 1.5 Mg/0.5 Ml Inj, 1.5 MG SC QWEEKLY, INJ 05/22/24 Zinc Gluconate (Zinc) 50 Mg Tab, 50 MG PO DAILY, TAB 05/22/24 Tocopheryl Acetate, Dl-Alpha (Vitamin E) 180 Mg Cap, 180 MG PO DAILY, CAP 05/22/24 Docusate Sodium (Colace) 100 Mg Cap, 100 MG PO DAILY, CAP 05/22/24 Guaifenesin (Mucinex) 600 Mg Tab, 1 TAB PO BID, #14 TAB 05/22/24 Diclofenac Sodium (Topical) (Aleve Arthritis Pain) 1 % Gel, 1 % EX TID, GEL 05/22/24 Methocarbamol (Methocarbamol) 500 Mg Tab, 500 MG PO Q8HPRN PRN for MUSCLE SPASMS for 30 Days, MG 05/22/24 Ezetimibe (Zetia) 10 Mg Tab, 1 TAB PO DAILY, #30 TAB 5 Refills 05/22/24 Rosuvastatin Calcium (Crestor) 20 Mg Tab, 1 TAB PO DAILY, #30 TAB 5 Refills 05/22/24 Pancrelipase (Lipase-Protease- (CREON) 36,000 Unt Cap, 96234 UNT OR DAILY for TAKES 8 A DAY, CAP 05/22/24 Hydralazine Hcl (Hydralazine Hcl) 25 Mg Tab, 25 MG PO for CHF/BP, MG 05/22/24 Pantoprazole Sodium Sesquihydr (Protonix) 40 Mg Tab, 40 MG PO DAILY for STOMACH, #30 TAB 04/17/23 Triamcinolone Acetonide (Triamcinolone Acetonide) 0.1 % Pst, 1 APPLIC TOP BID, APPLIC 11/08/22 Ipratropium Lackey Hfa (Atrovent Hfa) 17 Mcg Aer, 2 PUFF INH QID, #12.9 GRAMS 5 Refills 11/08/22 Loratadine (Claritin) 10 Mg Tab, 1 TAB PO DAILY, #30 TAB 5 Refills 11/08/22 Gabapentin (Gabapentin) 300 Mg Cap, 300 MG PO QAM for 1 morn, 1 noon, 2 bedtime for 30 Days, MG 11/08/22 Amitriptyline Hcl (Amitriptyline Hcl) 25 Mg Tab, 50 MG PO HS for 30 Days, MG 11/08/22 Venlafaxine Hcl (Venlafaxine Hcl Er) 150 Mg Cap, 1 CAP PO DAILY, #30 CAP 1 Refill 11/08/22 Acetaminophen (Tylenol) 325 Mg Cap, 500 MG PO QID, CAP 11/06/22 Ondansetron HCl (Ondansetron) 4 Mg Tab, 8 MG PO BIDP PRN for NAUSEA / VOMITING, TAB 11/06/22 Lorazepam (ATIVAN TABLET) 0.5 Mg Tb, 0.5 MG PO QIDP, TAB 11/06/22 Scopolamine (Scopolamine) 1 Mg/3 Days Dis, 1 MG TD, DIS 11/06/22 Folic Acid (Folic Acid) 1 Mg Tab, 1 MG PO DAILY for 30 Days, MG 11/06/22 Febuxostat (Uloric) 40 Mg Tab, 40 MG PO DAILY, TAB 11/06/22 Hydroxychloroquine Sulfate (Hydroxychloroquine Sulfat) 200 Mg Tab, 200 MG PO DAILY for 30 Days, MG 11/06/22 Insulin Lispro (Insulin Lispro Kwikpen) 100 Unit/Ml Inj, 100 UNIT SC, INJ 11/06/22 Baclofen (ED BACLOFEN) 10 Mg Tab, 20 MG PO QID, TAB 09/23/13 Plan/Recommendation pt admitted very often for Acute HF s/p pci for ISR cont home meds cont HF meds fu with her cards after RUTHY Palma Jul 05, 2024 10:53 ZHANG BRYANT MD Jul 05, 2024 14:12
[2024-07-05] MEDS: CARVEDILOL 3.125 MG TAB PO ONE (11:25)
--- NOTE | 2024-07-05 11:31 | DVHDS2 ---
Discharge Summary Date of Admission Jul 04, 2024 at 23:13 Date of Discharge: Jul 05, 2024 Admitting Diagnosis Acute on chronic decompensated HFrEF, NYHA Class III Labs/Diagnostic Data: Laboratory Results Test 07/05/24 06:46 07/05/24 05:41 07/04/24 23:45 07/04/24 21:58 POC Glucose 110 mg/dl (70-106) White Blood Count 5.3 10^3/uL (4.4-10.8) Red Blood Count 3.93 10^6/uL (4.0-5.20) Hemoglobin 10.9 g/dL (12.2-16.2) Hematocrit 34.3 % (36.0-46.0) Mean Corpuscular Volume 87.4 fL (80.0-100.0) Mean Corpuscular Hemoglobin 27.8 pg (28.0-32.0) Mean Corpuscular Hemoglobin Concent 31.8 g/dL (32.0-36.0) Red Cell Distribution Width 17.8 % (11.8-14.3) Platelet Count 271 10^3/uL (140-450) Mean Platelet Volume 8.1 fL (6.9-10.8) Neutrophils (%) (Auto) 65.1 % (37.0-80.0) Lymphocytes (%) (Auto) 20.6 % (10.0-50.0) Monocytes (%) (Auto) 7.8 % (0.0-12.0) Eosinophils (%) (Auto) 5.6 % (0.0-7.0) Basophils (%) (Auto) 0.9 % (0.0-2.0) Neutrophils # (Auto) 3.5 10 ^3/uL (1.6-8.6) Lymphocytes # (Auto) 1.1 10 ^3/uL (0.4-5.4) Monocytes # (Auto) 0.4 10 ^3/uL (0-1.3) Eosinophils # (Auto) 0.3 10 ^3/uL (0-0.8) Basophils # (Auto) 0 10 ^3/uL (0-0.2) Nucleated Red Blood Cells 0.2 % Sodium Level 141 mmol/L (136-145) Potassium Level 4.2 mmol/L (3.5-5.1) Chloride Level 107 mmol/L (98-107) Carbon Dioxide Level 27 mmol/L (20-31) Anion Gap 7 (5-15) Blood Urea Nitrogen 26 mg/dL (9-23) Creatinine 1.61 mg/dL (0.550-1.02) Glomerular Filtration Rate Calc 35 mL/min (>90) BUN/Creatinine Ratio 16.1 (10.0-20.0) Serum Glucose 120 mg/dL (74-106) Calcium Level 10.4 mg/dL (8.7-10.4) Total Bilirubin 0.4 mg/dL (0.2-1.0) Aspartate Amino Transferase (AST) 19 U/L (13-40) Alanine Aminotransferase (ALT) < 9 U/L (7-40) Alkaline Phosphatase 74 U/L (46-116) Total Protein 6.7 g/dL (5.7-8.2) Albumin 4.1 g/dL (3.2-4.8) Urine Color Light-yellow (Yellow) Urine Clarity Clear (Clear) Urine pH 6.0 (5.0-9.0) Urine Specific Parker 1.010 (1.001-1.035) Urine Protein Negative (Negative) Urine Ketones Negative (Negative) Urine Blood Negative /uL (Negative) Urine Nitrite Negative (Negative) Urine Bilirubin Negative (Negative) Urine Urobilinogen Normal mg/dL (Negative) Urine Leukocyte Esterase Negative /uL (Negative) Urine RBC 1 /hpf (0 - 4) Urine WBC 1 /hpf (0 - 5) Urine Squamous Epithelial Cells Few /hpf (<5) Urine Amorphous Crystals Few /hpf (None Seen) Urine Bacteria None seen /hpf (None Seen) Urine Glucose Normal mg/dL (Normal) Troponin I High Sensitivity 29 ng/L (</=34) Test 07/04/24 19:38 B-Type Natriuretic Peptide 1220.62 pg/mL (0-100) Other Laboratory Tests 07/05/24 05:41 Brief Hx & Hospital Course: Patient is a 68-year-old female known to me from previous hospitalizations admitted to the hospital for shortness of breaths likely due to fluid overload. Patient was treated with Lasix IV patient is on 2 L nasal cannula oxygen at home his back on her baseline. Patient will be discharged home, patient reports she has Plavix Eliquis and Lasix at home. Counseled on medication compliance. Condition at Discharge: Poor Final Diagnosis/Problems List Acute on chronic decompensated HFrEF, NYHA Class III Ischemic cardiomyopathy with LVEF of 25% CAD s/p PCI of the LAD x1 IVETTE (04/2023) s/p severe in-stent restenosis of the LAD stent (05/2024), on Plavix Paroxysmal atrial fibrillation, on low-dose Eliquis Rheumatoid arthritis Hx of pericardial effusion Chronic pericarditis CKD stage IIIb Hypertension Dyslipidemia Prediabetes Obesity Discharge Disposition: Home Discharge Instruct/Medications Diet: Cardiac 2g Na,low cholest Activity: Light activity Follow Up/Referral: Dr. Pope Medications: resume home meds Discharge Statement: "Patient was advised to return to the ER or call 911 if any headaches, dizziness, shortness of breath, chest pain, abdominal pain, bleeding, fevers, or worsening of medical condition. Patient was counseled about treatment plan, medications, possible side effects, patientverbalized understanding. All questions were answered to the best of my ability. This discharge took greater then 30 minutes in planning, reviewing documentation, counseling the patient, and discussing with other team members." ASSESSMENT ASSESSMENT Assessment Date of Service: Jul 05, 2024 Billing Provider: KIRILL CHOW MD Common Visit Codes: 97634-FGL/OBS DISCH DAY >30min KIRILL CHOW MD Jul 05, 2024 11:31
[2024-07-05 13:07] VITALS: BP 140/70; PULSE 86; RESP 16; TEMP 98.2; O2SAT 99
[2024-07-05] MEDS ORDERED: ATORVASTATIN 20 MG TAB PO SCH (22:00)
[2024-07-05] MEDS ORDERED: CARVEDILOL 3.125 MG TAB PO SCH (22:00)
--- NOTE | 2024-07-06 07:26 | ECG ---
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
[2024-07-06] MEDS ORDERED: EZETIMIBE 10 MG TAB PO SCH (10:00)
== END 2024-07-05 14:18 | disposition home or self-care (01) | DRG 291 ==
LOC: EDBD 18:19 → ER 18:19 → TELE 23:13
PROVIDERS: ADMIT Nurse Practitioner Family; ATTEND Nurse Practitioner Family
DX: I13.0 Hypertensive heart and chronic kidney disease with heart failure and stage 1 through stage 4 chronic kidney disease, or unspecified chronic kidney disease (principal); I50.23 Acute on chronic systolic (congestive) heart failure; I31.39 Other pericardial effusion (noninflammatory); N17.9 Acute kidney failure, unspecified; I31.9 Disease of pericardium, unspecified; J44.89 Other specified chronic obstructive pulmonary disease; E66.01 Morbid (severe) obesity due to excess calories; E78.5 Hyperlipidemia, unspecified; F32.A Depression, unspecified; D64.9 Anemia, unspecified; F41.9 Anxiety disorder, unspecified; F03.90 Unspecified dementia, unspecified severity, without behavioral disturbance, psychotic disturbance, mood disturbance, and anxiety; I25.10 Atherosclerotic heart disease of native coronary artery without angina pectoris; I25.5 Ischemic cardiomyopathy; I48.0 Paroxysmal atrial fibrillation; M06.9 Rheumatoid arthritis, unspecified; N18.32 Chronic kidney disease, stage 3b; E11.22 Type 2 diabetes mellitus with diabetic chronic kidney disease; M10.9 Gout, unspecified; E11.65 Type 2 diabetes mellitus with hyperglycemia; Z88.5 Allergy status to narcotic agent; Z88.0 Allergy status to penicillin; Z88.2 Allergy status to sulfonamides; Z88.8 Allergy status to other drugs, medicaments and biological substances; Z88.6 Allergy status to analgesic agent; Z88.1 Allergy status to other antibiotic agents; Z91.041 Radiographic dye allergy status; Z79.899 Other long term (current) drug therapy; Z86.73 Personal history of transient ischemic attack (TIA), and cerebral infarction without residual deficits; Z91.012 Allergy to eggs; Z91.018 Allergy to other foods; Z79.4 Long term (current) use of insulin; Z98.61 Coronary angioplasty status; Z82.49 Family history of ischemic heart disease and other diseases of the circulatory system; Z82.5 Family history of asthma and other chronic lower respiratory diseases; Z83.3 Family history of diabetes mellitus; Z79.02 Long term (current) use of antithrombotics/antiplatelets
CPT/HCPCS: 36415; 71046; 80048; 80053; 81001; 82962; 83880; 84484; 85025; 93005; 94640; 96374; G0378; J3490

== ENCOUNTER 2024-11-28 07:04 | Emergency (ER) | payer OTHER, MEDICAID ==
[~2024-11-28] VITALS: Ht 157.5 cm; Wt 82.0 kg
[2024-11-28] MEDS ORDERED: fentaNYL CITRATE 100 MCG/2 ML VL IV ONE (07:30)
--- NOTE | 2024-11-28 07:32 | ED.PDOC ---
History of Present Illness HPI Comments 68F presents to the ER in a wheelchair and being pushed by daughter w/ prior MHx of anemia, anxiety, asthma, CHF, CKF, Depression, DM, Gout, High Lipids, HTN, TIA;SHx of , PTCA and the c/c of lower back pain due from sciatica. Pt reports on her sciatica acting up for the past month after waking up from sleep. Daughter reports that ever since the sciatica began, the pt has been falling more frequently. Pt was scheduled to see her PCP 2 days ago but they called and rescheduled for next week. Pt notes on having right leg pain/lower back pain. No other associated symptoms, modifiers, recent injuries or sick contacts present at this time. Chief Complaint: Back Pain Time Seen by MD: 07:15 Primary Care Provider: BLANK Reviewed Notes: Nurses Notes, Medications, Allergies Allergies: Coded Allergies: Egg-derived Products (Unverified Allergy, Severe, 01/28/23) NSAIDs (Unverified Allergy, Severe, 01/28/23) Oxycodone (Unverified Allergy, Severe, 01/28/23) Banana (Unverified Allergy, Intermediate, 01/28/23) Garlic (Unverified Allergy, Intermediate, 01/28/23) Oatmeal (Unverified Allergy, Intermediate, 01/28/23) Albuterol (Verified Allergy, Unknown, 05/22/24) Aspirin (Verified Allergy, Unknown, wheezing, 05/22/24) Caffeine (Verified Allergy, Unknown, 05/22/24) Chondroitin Sulfate A (Verified Allergy, Unknown, HIVES, 05/22/24) Cromolyn (Verified Allergy, Unknown, 05/22/24) Donepezil (Unverified Allergy, Unknown, 02/26/23) Epinephrine (Verified Allergy, Unknown, trouble breathing, 05/22/24) Erythromycin (Verified Allergy, Unknown, 05/22/24) Insulin Glargine (Verified Allergy, Unknown, 05/22/24) Levetiracetam (Unverified Allergy, Unknown, 02/26/23) Neomycin (Verified Allergy, Unknown, 05/22/24) Onion (Verified Allergy, Unknown, 05/22/24) Penicillins (Verified Allergy, Unknown, yeast infection, 05/22/24) Polymyxin B (Verified Allergy, Unknown, 05/22/24) Prednisone (Verified Allergy, Unknown, 05/22/24) Pseudoephedrine (Verified Allergy, Unknown, HIVES, 05/22/24) Regadenoson (Verified Allergy, Unknown, ANGINA, 05/22/24) Soybean Oil (Verified Allergy, Unknown, 07/05/24) Soybean Phosphatides (Verified Allergy, Unknown, 07/05/24) Soybean-containing Drug Products (Verified Allergy, Unknown, 07/05/24) Sulfa Antibiotics (Verified Allergy, Unknown, hives, 05/22/24) Theophylline (Verified Allergy, Unknown, 05/22/24) Triprolidine (Verified Allergy, Unknown, HIVES, 05/22/24) Codeine (Verified Adverse Reaction, Unknown, SOB, 05/22/24) Ibuprofen (Verified Adverse Reaction, Unknown, WHEEZING, 05/22/24) Lidocaine (Verified Adverse Reaction, Unknown, NV, 05/22/24) Uncoded Allergies: CHICKEN (Allergy, Severe, 01/28/23) DAIRY (Allergy, Severe, 01/28/23) LEAFY GREENS (Allergy, Severe, 01/28/23) PORK (Allergy, Severe, 01/28/23) BEEF (Allergy, Intermediate, 01/28/23) WHEAT FLOUR (Allergy, Intermediate, 01/28/23) WHOLE GRAIN (Allergy, Intermediate, 01/28/23) garlic (Allergy, Mild, 11/07/22) red meat (Allergy, Mild, nausea/ vomiting, 11/07/22) whole grains (Allergy, Mild, 11/07/22) CHONDROITION (Allergy, Unknown, HIVES SOB, 04/20/17) EGGS (Allergy, Unknown, 08/15/22) SALICYLATE (Allergy, Unknown, NV, 04/20/17) LETTUCE (Adverse Reaction, Intermediate, 01/28/23) TOMATOES (Adverse Reaction, Intermediate, 01/28/23) potato (Adverse Reaction, Intermediate, 04/20/24) per patient when she eats potatoes all of her joints swell and become painful STEROIDS (Adverse Reaction, Unknown, SOB, 04/20/17) Home Meds Active Scripts Apixaban Base (ELIQUIS) 2.5 Mg Tab, 2.5 MG PO BID for 30 Days, #60 TAB Prov:KIRILL CHOW MD 05/28/24 Clopidogrel Bisulfate (Plavix) 75 Mg Tab, 75 MG PO DAILY for NEW CARDIAC STENT for 30 Days, #30 TAB Prov:KIRILL CHOW MD 05/28/24 Alum & Mag Hydrox-Simethicone (Mylanta Maximum Strength 400-400-40 mg/5Ml) 1 Misty Misty, 1 MISTY PO BIDP PRN, #120 ML Prov:CATRACHITO CLARK PAC 05/07/24 Furosemide (Lasix) 40 Mg Tab, 40 MG PO BID, #60 TAB Prov:CATRACHITO CLARK PAC 05/07/24 Reported Medications Montelukast Sodium (MONTELUKAST SODIUM) 10 Mg Tab, 1 TAB PO DAILY for ASTHMA, #30 TAB 5 Refills 05/22/24 Dulaglutide (Trulicity) 1.5 Mg/0.5 Ml Inj, 1.5 MG SC QWEEKLY, INJ 05/22/24 Zinc Gluconate (Zinc) 50 Mg Tab, 50 MG PO DAILY, TAB 05/22/24 Tocopheryl Acetate, Dl-Alpha (Vitamin E) 180 Mg Cap, 180 MG PO DAILY, CAP 05/22/24 Docusate Sodium (Colace) 100 Mg Cap, 100 MG PO DAILY, CAP 05/22/24 Guaifenesin (Mucinex) 600 Mg Tab, 1 TAB PO BID, #14 TAB 05/22/24 Diclofenac Sodium (Topical) (Aleve Arthritis Pain) 1 % Gel, 1 % EX TID, GEL 05/22/24 Methocarbamol (Methocarbamol) 500 Mg Tab, 500 MG PO Q8HPRN PRN for MUSCLE SPASMS for 30 Days, MG 05/22/24 Ezetimibe (Zetia) 10 Mg Tab, 1 TAB PO DAILY, #30 TAB 5 Refills 05/22/24 Rosuvastatin Calcium (Crestor) 20 Mg Tab, 1 TAB PO DAILY, #30 TAB 5 Refills 05/22/24 Pancrelipase (Lipase-Protease- (CREON) 36,000 Unt Cap, [address] UNT OR DAILY for TAKES 8 A DAY, CAP 05/22/24 Hydralazine Hcl (Hydralazine Hcl) 25 Mg Tab, 25 MG PO for CHF/BP, MG 05/22/24 Pantoprazole Sodium Sesquihydr (Protonix) 40 Mg Tab, 40 MG PO DAILY for STOMACH, #30 TAB 04/17/23 Triamcinolone Acetonide (Triamcinolone Acetonide) 0.1 % Pst, 1 APPLIC TOP BID, APPLIC 11/08/22 Ipratropium [place] Hfa (Atrovent Hfa) 17 Mcg Aer, 2 PUFF INH QID, #12.9 GRAMS 5 Refills 11/08/22 Loratadine (Claritin) 10 Mg Tab, 1 TAB PO DAILY, #30 TAB 5 Refills 11/08/22 Gabapentin (Gabapentin) 300 Mg Cap, 300 MG PO QAM for 1 morn, 1 noon, 2 bedtime for 30 Days, MG 11/08/22 Amitriptyline Hcl (Amitriptyline Hcl) 25 Mg Tab, 50 MG PO HS for 30 Days, MG 11/08/22 Venlafaxine Hcl (Venlafaxine Hcl Er) 150 Mg Cap, 1 CAP PO DAILY, #30 CAP 1 Refill 11/08/22 Acetaminophen (Tylenol) 325 Mg Cap, 500 MG PO QID, CAP 11/06/22 Ondansetron HCl (Ondansetron) 4 Mg Tab, 8 MG PO BIDP PRN for NAUSEA / VOMITING, TAB 11/06/22 Lorazepam (ATIVAN TABLET) 0.5 Mg Tb, 0.5 MG PO QIDP, TAB 11/06/22 Scopolamine (Scopolamine) 1 Mg/3 Days Dis, 1 MG TD, DIS 11/06/22 Folic Acid (Folic Acid) 1 Mg Tab, 1 MG PO DAILY for 30 Days, MG 11/06/22 Febuxostat (Uloric) 40 Mg Tab, 40 MG PO DAILY, TAB 11/06/22 Hydroxychloroquine Sulfate (Hydroxychloroquine Sulfat) 200 Mg Tab, 200 MG PO DAILY for 30 Days, MG 11/06/22 Insulin Lispro (Insulin Lispro Kwikpen) 100 Unit/Ml Inj, 100 UNIT SC, INJ 11/06/22 Baclofen (ED BACLOFEN) 10 Mg Tab, 20 MG PO QID, TAB 09/23/13 Information Source: Patient, Relative (Child) Mode of Arrival: Wheelchair Severity: Moderate Timing: Weeks Duration: Since onset Prehospital treatment: None Past Medical History PAST MEDICAL HISTORY: Anemia, Anxiety, Asthma, CHF, CKF, Depression, DM, Gout, High Lipids, HTN, TIA Surgical History: , 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 Hx Family History Family History: Reviewed,noncontributory to illness, Unknown Social History Smoker: Secondhand Alcohol: Denies ETOH Use Drugs: Denies Drug Use Lives In: Home Constitutional: reports: weakness; denies: chills, diaphoresis, fatigue, fever, malaise, sweats, others EENTM: denies: blurred vision, double vision, ear bleeding, ear discharge, ear drainage, ear pain, ear ringing, eye pain, eye redness, hearing loss, mouth pain, mouth swelling, nasal discharge, nose bleeding, nose congestion, nose pain, photophobia, tearing, throat pain, throat swelling, voice changes, others Respiratory: denies: cough, hemoptysis, orthopnea, SOB at rest, shortness of breath, SOB with excertion, stridor, wheezing, others Cardiovascular: denies: chest pain, dizzy spells, diaphoresis, Dyspnea on exertion, edema, irregular heart beat, left arm pain, lightheadedness, palpitations, PND, syncope, others Gastrointestinal: denies: abdomen distended, abdominal pain, blood streaked bowels, constipated, diarrhea, dysphagia, difficulty swallowing, hematemesis, melena, nausea, poor appetite, poor fluid intake, rectal bleeding, rectal pain, vomiting, others Genitourinary: denies: abnormal vagina bleeding, burning, dyspareunia, dysuria, flank pain, frequency, hematuria, incontinence, pain, , vagina discharge, urgency, others Neurological: denies: dizziness, fainting, headache, left sided numbness, left sided weakness, numbness, paresthesia, pre-existing deficit, right sided numbness, right sided weakness, seizure, speech problems, tingling, tremors, weakness, others Musculoskeletal: reports: back pain; denies: gout, joint pain, joint swelling, muscle pain, muscle stiffness, neck pain, others Integumetry: denies: bruises, change in color, change in hair/nails, dryness, laceration, lesions, lumps, rash, wounds, others Allergic/Immunocompromised: denies: Difficulty Healing, Frequent Infections, Hives, Itching, others Hematologic/Lymphatic: denies: anemia, blood clots, easy bleeding, easy bruising, swollen glands, others Endocrine: denies: excessive hunger, excessive sweating, excessive thirst, excessive urination, flushing, intolerance to cold, intolerance to heat, unexplained weight gain, unexplained weight loss, others Psychiatric: denies: anxiety, bipolar disorder, depression, hopeless, panic disorder, schizophrenia, sleepless, suicidal, others All Other Systems: Reviewed and Negative Physical Exam Exam Comments Slightly positive in in RLE General Appearance: No Apparent Distress, Normal HEENT: Normal ENT Inspection, Pharynx Normal, TMs Normal Neck: Full Range of Motion, Non-Tender, Normal, Normal Inspection Respiratory: Chest Non-Tender, Lungs Clear, No Accessory Muscle Use, No Respiratory Distress, Normal Breath Sounds Cardiovascular: No Edema, No JVD, No Murmur, No Gallop, Normal Peripheral Pulses, Regular Rate/Rhythm Breast Exam: Deferred Gastrointestinal: No Organomegaly, Non Tender, No Pulsatile Mass, Normal Bowel Sounds, Soft Genitalia: Deferred Pelvic: Deferred Rectal: Deferred Extremities: No calf tenderness, Normal capillary refill, Normal inspection, Normal range of motion, Non-tender, No pedal edema Musculoskeletal : Apperance: Normal Neurologic: Alert, contract associate manager II-XII nml as Tested, No Motor Deficits, Normal Affect, Normal Mood, No Sensory Deficits Cerebellar Function: Normal Reflexes: Normal Skin: Dry, Normal Color, Warm Lymphatic: No Adenopathy Was a procedure done? Was a procedure done?: No Differential Dx Considerations may include: sprain, contusion, s train, pathologic lesions, herniated disc, sciatica, fracture X-Ray, Labs, Meds, VS Vital Signs Date Time Temp Pulse Resp B/P (MAP) Pulse Ox O2 Delivery O2 Flow Rate FiO2 11/28/24 09:09 138/66 11/28/24 08:45 85 20 100 Room Air* 0 21 11/28/24 08:45 98.1 85 20 138/66 (90) 100 98.1 11/28/24 07:19 97.6 88 18 120/60 (80) 97 97.6 Current Medications Medications (Trade) Dose Ordered Sig/Maggie Route Start Time Stop Time Status Last Admin Cyclobenzaprine HCl (Flexeril Tablet) 10 mg ONCE ONCE PO 11/28/24 07:30 11/28/24 07:31 DC 11/28/24 09:12 Fentanyl Citrate 25 mcg ONCE ONCE IM 11/28/24 09:00 11/28/24 09:01 DC 11/28/24 09:09 Time of 1ST Reevaluation: 07:45 Reevaluation 1ST: Unchanged Reevaluation 2ND: Resolved Patient Education/Counseling: Diagnosis, Treatment, Prognosis, Need For Follow Up Family Education/Counseling: Diagnosis, Treatment, Prognosis, Need For Follow Up Comments pt is feeling improve. she states that the pain has been the same for years. she has been to pain managements but now just follows her PCP. pharmacy will no longer fill narcotics and muscle relaxant for her. she is requesting Toradol prescription. ct is unchanged, other than the questionable fracture line, but but does not have point tenderness Departure 1 Departure Time of Disposition: 10:00 Impression: Primary Impression: Back pain Qualified Codes: M54.50 - Low back pain, unspecified; G89.29 - Other chronic pain Disposition: 01 HOME / SELF CARE / HOMELESS Condition: Good e-Prescriptions Ketorolac Tromethamine (Ketorolac Tromethamine) 10 Mg Tab 1 TAB PO TID PRN, #15 TAB Prov: KRISTA TILLMAN MD 11/28/24 Discharged With: Self, Relative Critical Care Note Critical Care Time?: No Stability Stability form required: No I personally scribed for KRISTA TILLMAN MD ([email or web address]) on 11/28/24 at 07:32. Electronically submitted by Jeevan Copeland ([email or web address]). KRISTA TILLMAN MD Nov 28, 2024 07:32
--- NOTE | 2024-11-28 08:05 | DVH ---
CT LS SPINE WO CONTRAST Indication: right leg pain, weakness, lbp EXAM DATE: 11/28/2024 07:25 AM COMPARISON: None TECHNIQUE: CT of the lumbar spine ead without intravenous contrast. RADIATION DOSE: CTDIvol: 35.92 mGy, DLP: 1067.25 mGy*cm FINDINGS: Posterior intrapedicular fixation of the L5 and S1 vertebral bodies. The screws of the L5 vertebral b nino extend through the anterior cortex. Subtle lucency through the L5 superior endplate without loss of height/compression. 2 mm anterolisthesis of L5 on S1. The remaining lumbar vertebral body heights are maintained. Bzhc-tg-[id number] multilevel disc space na rrowing and desiccation. [id number] facet hypertrophic changes. Moderate bilateral sacroiliac degenerative joint disease. 3 mm disc protrusion L4-5. Moderate neural foraminal stenosis L4-5. Mild- to-moderate neural foraminal stenosis L5-S1. There is mild lumbar levocurvature. Atherosclerotic disease. IMPRESSION: 1. Posterior fixation L5 and S1 vertebral bodies. L5 intrapedicular screws extend through the verteb ral body cortex anteriorly 2. Subtle lucency through the L5 superior endplate without loss of height could represent fracture. Correlate with pain symptoms. 3. Moderate neural foraminal stenosis L4-5. [id number] neural foraminal stenosis L5-S1.
[2024-11-28 08:45] VITALS: PULSE 85; RESP 20; O2SAT 100
[2024-11-28] MEDS: fentaNYL CITRATE 100 MCG/2 ML VL IM ONE (09:09)
[2024-11-28] MEDS: CYCLOBENZAPRINE HCL 10 MG TAB PO ONE (09:12)
[2024-11-28] MEDS ORDERED: KETO10TA PO (10:01)
[2024-11-28 10:08] VITALS: BP 140/56; PULSE 74; RESP 14; TEMP 98.1; O2SAT 99
[2024-11-28] MEDS: ONDANSETRON ODT 4 MG TAB PO ONE (10:08)
== END 2024-11-28 10:16 | disposition home or self-care (01) ==
LOC: ER 07:04
DX: M54.50 Low back pain, unspecified (principal); R53.1 Weakness; E11.9 Type 2 diabetes mellitus without complications; I50.9 Heart failure, unspecified; J45.909 Unspecified asthma, uncomplicated; E78.5 Hyperlipidemia, unspecified; F41.9 Anxiety disorder, unspecified; I13.0 Hypertensive heart and chronic kidney disease with heart failure and stage 1 through stage 4 chronic kidney disease, or unspecified chronic kidney disease; E11.22 Type 2 diabetes mellitus with diabetic chronic kidney disease; N18.9 Chronic kidney disease, unspecified; F32.A Depression, unspecified; Z86.73 Personal history of transient ischemic attack (TIA), and cerebral infarction without residual deficits; Z98.890 Other specified postprocedural states; Z79.01 Long term (current) use of anticoagulants; Z79.02 Long term (current) use of antithrombotics/antiplatelets; Z79.85 Long-term (current) use of injectable non-insulin antidiabetic drugs; Z79.899 Other long term (current) drug therapy; Z88.0 Allergy status to penicillin; Z88.1 Allergy status to other antibiotic agents; Z88.2 Allergy status to sulfonamides; Z88.5 Allergy status to narcotic agent; Z88.6 Allergy status to analgesic agent; Z88.8 Allergy status to other drugs, medicaments and biological substances
CPT/HCPCS: 72131; 96372; 99285; J3010; Q0162

== ENCOUNTER 2025-03-20 10:22 | Emergency (ER) | payer OTHER, MEDICAID ==
[~2025-03-20] VITALS: Ht 154.9 cm; Wt 81.0 kg
[~2025-03-20 10:22] MED LIST changes: +KETO10TA PO
[2025-03-20 10:48] LABS: Hematocrit 39.8 % (36.0-46.0); Hemoglobin 12.6 g/dL (12.2-16.2); Mean Corpuscular Hemoglobin 28.5 pg (28.0-32.0); Mean Corpuscular Volume 90.5 fL (80.0-100.0); Nucleated Red Blood Cells % 0.0 %
[2025-03-20 11:00] LABS: Alanine Aminotransferase 17 U/L (7-40); Albumin 4.5 g/dL (3.2-4.8); Alkaline Phosphatase 91 U/L (46-116); Anion Gap 12 (5-15); BUN/Creatinine Ratio 17.3 (10.0-20.0); Calcium 10.1 mg/dL (8.7-10.4); Carbon Dioxide 26 mmol/L (20-31); Chloride 100 mmol/L (98-107); Magnesium 2.4 mg/dL (1.6-2.6); Potassium 4.1 mmol/L (3.5-5.1); Sodium 138 mmol/L (136-145); Total Protein 7.6 g/dL (5.7-8.2)
[2025-03-20 11:11] LABS: Bilirubin, Total 0.2 mg/dL (0.2-1.0); Blood Urea Nitrogen 37 mg/dL (9-23); Glucose 255 mg/dL (74-106)
--- NOTE | 2025-03-20 11:14 | ED.PDOC ---
History of present illness HPI Comments Vida Mercado is a 69-year-old female with past medical history of DM2, CHF, COPD, asthma, TIA, HTN, hyperlipidemia, CKD stage IIIb, chronic back pain, depression and anxiety. The patient came to the ED with chief complain of 3 weeks of elevated home readings of blood sugar >300m. The patient reports she is being compliant with her medications.The patient reports 1 week of urinary urgency and frequency. The patient denies dysuria, fever, chills, abdominal pain, shortness of breath. In the ED BP: 140/70, Blood glucose: 275, UA and labs were ordered. The patient will be assessed. Chief Complaint: Hyperglycemia Time Seen by MD: 10:31 Primary Care Provider: UNKNOWN History of present illness: Nurses Notes, Medications, Allergies Allergies: Coded Allergies: Egg-derived Products (Unverified Allergy, Severe, 01/28/23) NSAIDs (Unverified Allergy, Severe, 01/28/23) Oxycodone (Unverified Allergy, Severe, 01/28/23) Banana (Unverified Allergy, Intermediate, 01/28/23) Garlic (Unverified Allergy, Intermediate, 01/28/23) Oatmeal (Unverified Allergy, Intermediate, 01/28/23) Albuterol (Verified Allergy, Unknown, 05/22/24) Aspirin (Verified Allergy, Unknown, wheezing, 05/22/24) Caffeine (Verified Allergy, Unknown, 05/22/24) Chondroitin Sulfate A (Verified Allergy, Unknown, HIVES, 05/22/24) Cromolyn (Verified Allergy, Unknown, 05/22/24) Donepezil (Unverified Allergy, Unknown, 02/26/23) Epinephrine (Verified Allergy, Unknown, trouble breathing, 05/22/24) Erythromycin (Verified Allergy, Unknown, 05/22/24) Insulin Glargine (Verified Allergy, Unknown, 05/22/24) Levetiracetam (Unverified Allergy, Unknown, 02/26/23) Neomycin (Verified Allergy, Unknown, 05/22/24) Onion (Verified Allergy, Unknown, 05/22/24) Penicillins (Verified Allergy, Unknown, yeast infection, 05/22/24) Polymyxin B (Verified Allergy, Unknown, 05/22/24) Prednisone (Verified Allergy, Unknown, 05/22/24) Pseudoephedrine (Verified Allergy, Unknown, HIVES, 05/22/24) Regadenoson (Verified Allergy, Unknown, ANGINA, 05/22/24) Soybean Oil (Verified Allergy, Unknown, 07/05/24) Soybean Phosphatides (Verified Allergy, Unknown, 07/05/24) Soybean-containing Drug Products (Verified Allergy, Unknown, 07/05/24) Sulfa Antibiotics (Verified Allergy, Unknown, hives, 05/22/24) Theophylline (Verified Allergy, Unknown, 05/22/24) Triprolidine (Verified Allergy, Unknown, HIVES, 05/22/24) Codeine (Verified Adverse Reaction, Unknown, SOB, 05/22/24) Ibuprofen (Verified Adverse Reaction, Unknown, WHEEZING, 05/22/24) Lidocaine (Verified Adverse Reaction, Unknown, NV, 05/22/24) Uncoded Allergies: CHICKEN (Allergy, Severe, 01/28/23) DAIRY (Allergy, Severe, 01/28/23) LEAFY GREENS (Allergy, Severe, 01/28/23) PORK (Allergy, Severe, 01/28/23) BEEF (Allergy, Intermediate, 01/28/23) WHEAT FLOUR (Allergy, Intermediate, 01/28/23) WHOLE GRAIN (Allergy, Intermediate, 01/28/23) garlic (Allergy, Mild, 11/07/22) red meat (Allergy, Mild, nausea/ vomiting, 11/07/22) whole grains (Allergy, Mild, 11/07/22) CHONDROITION (Allergy, Unknown, HIVES SOB, 04/20/17) EGGS (Allergy, Unknown, 08/15/22) SALICYLATE (Allergy, Unknown, NV, 04/20/17) LETTUCE (Adverse Reaction, Intermediate, 01/28/23) TOMATOES (Adverse Reaction, Intermediate, 01/28/23) potato (Adverse Reaction, Intermediate, 04/20/24) per patient when she eats potatoes all of her joints swell and become painful STEROIDS (Adverse Reaction, Unknown, SOB, 04/20/17) Home Meds Active Scripts Cephalexin Monohydrate (Cephalexin) 500 Mg Cap, 250 MG PO Q12HR for 7 Days, #7 TAB Prov:KEN CONROY DO 03/20/25 Ketorolac Tromethamine (Ketorolac Tromethamine) 10 Mg Tab, 1 TAB PO TID PRN, #15 TAB Prov:KRISTA TILLMAN MD 11/28/24 Apixaban Base (ELIQUIS) 2.5 Mg Tab, 2.5 MG PO BID for 30 Days, #60 TAB Prov:KIRILL CHOW MD 05/28/24 Clopidogrel Bisulfate (Plavix) 75 Mg Tab, 75 MG PO DAILY for NEW CARDIAC STENT for 30 Days, #30 TAB Prov:KIRILL CHOW MD 05/28/24 Alum & Mag Hydrox-Simethicone (Mylanta Maximum Strength 400-400-40 mg/5Ml) 1 Misty Misty, 1 MISTY PO BIDP PRN, #120 ML Prov:CATRACHITO CLARK PAC 05/07/24 Furosemide (Lasix) 40 Mg Tab, 40 MG PO BID, #60 TAB Prov:CATRACHITO CLARK PAC 05/07/24 Reported Medications Montelukast Sodium (MONTELUKAST SODIUM) 10 Mg Tab, 1 TAB PO DAILY for ASTHMA, #30 TAB 5 Refills 05/22/24 Dulaglutide (Trulicity) 1.5 Mg/0.5 Ml Inj, 1.5 MG SC QWEEKLY, INJ 05/22/24 Zinc Gluconate (Zinc) 50 Mg Tab, 50 MG PO DAILY, TAB 05/22/24 Tocopheryl Acetate, Dl-Alpha (Vitamin E) 180 Mg Cap, 180 MG PO DAILY, CAP 05/22/24 Docusate Sodium (Colace) 100 Mg Cap, 100 MG PO DAILY, CAP 05/22/24 Guaifenesin (Mucinex) 600 Mg Tab, 1 TAB PO BID, #14 TAB 05/22/24 Diclofenac Sodium (Topical) (Aleve Arthritis Pain) 1 % Gel, 1 % EX TID, GEL 05/22/24 Methocarbamol (Methocarbamol) 500 Mg Tab, 500 MG PO Q8HPRN PRN for MUSCLE SPASMS for 30 Days, MG 05/22/24 Ezetimibe (Zetia) 10 Mg Tab, 1 TAB PO DAILY, #30 TAB 5 Refills 05/22/24 Rosuvastatin Calcium (Crestor) 20 Mg Tab, 1 TAB PO DAILY, #30 TAB 5 Refills 05/22/24 Pancrelipase (Lipase-Protease- (CREON) 36,000 Unt Cap, 53750 UNT OR DAILY for TAKES 8 A DAY, CAP 05/22/24 Hydralazine Hcl (Hydralazine Hcl) 25 Mg Tab, 25 MG PO for CHF/BP, MG 05/22/24 Pantoprazole Sodium Sesquihydr (Protonix) 40 Mg Tab, 40 MG PO DAILY for STOMACH, #30 TAB 04/17/23 Triamcinolone Acetonide (Triamcinolone Acetonide) 0.1 % Pst, 1 APPLIC TOP BID, APPLIC 11/08/22 Ipratropium Nelson Hfa (Atrovent Hfa) 17 Mcg Aer, 2 PUFF INH QID, #12.9 GRAMS 5 Refills 11/08/22 Loratadine (Claritin) 10 Mg Tab, 1 TAB PO DAILY, #30 TAB 5 Refills 11/08/22 Gabapentin (Gabapentin) 300 Mg Cap, 300 MG PO QAM for 1 morn, 1 noon, 2 bedtime for 30 Days, MG 11/08/22 Amitriptyline Hcl (Amitriptyline Hcl) 25 Mg Tab, 50 MG PO HS for 30 Days, MG 11/08/22 Venlafaxine Hcl (Venlafaxine Hcl Er) 150 Mg Cap, 1 CAP PO DAILY, #30 CAP 1 Refill 11/08/22 Acetaminophen (Tylenol) 325 Mg Cap, 500 MG PO QID, CAP 11/06/22 Ondansetron HCl (Ondansetron) 4 Mg Tab, 8 MG PO BIDP PRN for NAUSEA / VOMITING, TAB 11/06/22 Lorazepam (ATIVAN TABLET) 0.5 Mg Tb, 0.5 MG PO QIDP, TAB 11/06/22 Scopolamine (Scopolamine) 1 Mg/3 Days Dis, 1 MG TD, DIS 11/06/22 Folic Acid (Folic Acid) 1 Mg Tab, 1 MG PO DAILY for 30 Days, MG 11/06/22 Febuxostat (Uloric) 40 Mg Tab, 40 MG PO DAILY, TAB 11/06/22 Hydroxychloroquine Sulfate (Hydroxychloroquine Sulfat) 200 Mg Tab, 200 MG PO DAILY for 30 Days, MG 11/06/22 Insulin Lispro (Insulin Lispro Kwikpen) 100 Unit/Ml Inj, 100 UNIT SC, INJ 11/06/22 Baclofen (ED BACLOFEN) 10 Mg Tab, 20 MG PO QID, TAB 4/9/14 Information Source: Patient, Relative (Child) Mode of Arrival: Wheelchair Timing: Weeks Duration: Since onset Past Medical History PAST MEDICAL HISTORY: Anemia, Anxiety, Asthma, CHF, CKF, Depression, DM, Gout, High Lipids, HTN, TIA Surgical History: , PTCA DECK HAND History: Denies all DECK HAND Hx Family History Family History: Reviewed,noncontributory to illness, Unknown Social History Smoker: Secondhand Alcohol: Denies ETOH Use Drugs: Denies Drug Use Lives In: Home Constitutional: reports: fatigue; denies: chills, diaphoresis, fever, malaise, sweats, weakness, others EENTM: denies: blurred vision, double vision, ear bleeding, ear discharge, ear drainage, ear pain, ear ringing, eye pain, eye redness, hearing loss, mouth pain, mouth swelling, nasal discharge, nose bleeding, nose congestion, nose pain, photophobia, tearing, throat pain, throat swelling, voice changes, others Respiratory: denies: cough, hemoptysis, orthopnea, SOB at rest, shortness of breath, SOB with excertion, stridor, wheezing, others Cardiovascular: denies: chest pain, dizzy spells, diaphoresis, Dyspnea on exertion, edema, irregular heart beat, left arm pain, lightheadedness, palpitations, PND, syncope, others Gastrointestinal: denies: abdomen distended, abdominal pain, blood streaked bowels, constipated, diarrhea, dysphagia, difficulty swallowing, hematemesis, melena, nausea, poor appetite, poor fluid intake, rectal bleeding, rectal pain, vomiting, others Genitourinary: denies: abnormal vagina bleeding, burning, dyspareunia, dysuria, flank pain, frequency, hematuria, incontinence, pain, , vagina discharge, urgency, others Neurological: denies: dizziness, fainting, headache, left sided numbness, left sided weakness, numbness, paresthesia, pre-existing deficit, right sided numbness, right sided weakness, seizure, speech problems, tingling, tremors, weakness, others Musculoskeletal: denies: back pain, gout, joint pain, joint swelling, muscle pain, muscle stiffness, neck pain, others Integumetry: denies: bruises, change in color, change in hair/nails, dryness, laceration, lesions, lumps, rash, wounds, others Allergic/Immunocompromised: denies: Difficulty Healing, Frequent Infections, Hives, Itching, others Hematologic/Lymphatic: denies: anemia, blood clots, easy bleeding, easy bruising, swollen glands, others Endocrine: denies: excessive hunger, excessive sweating, excessive thirst, excessive urination, flushing, intolerance to cold, intolerance to heat, unexplained weight gain, unexplained weight loss, others Psychiatric: denies: anxiety, bipolar disorder, depression, hopeless, panic disorder, schizophrenia, sleepless, suicidal, others Physical Exam Exam Comments On O2 by NC (2L) General Appearance: No Apparent Distress, Normal HEENT: Normal ENT Inspection, Pharynx Normal, TMs Normal Neck: Full Range of Motion, Non-Tender, Normal, Normal Inspection Respiratory: Chest Non-Tender, Lungs Clear, No Accessory Muscle Use, No Respiratory Distress, Normal Breath Sounds Cardiovascular: No Edema, No JVD, No Murmur, No Gallop, Normal Peripheral Pulses, Regular Rate/Rhythm Breast Exam: Deferred Gastrointestinal: No Organomegaly, Non Tender, No Pulsatile Mass, Normal Bowel Sounds, Soft Genitalia: Deferred Pelvic: Deferred Rectal: Deferred Extremities: No calf tenderness, Normal capillary refill, Normal inspection, Normal range of motion, Non-tender, No pedal edema, Other (back tenderness. ) Musculoskeletal : Apperance: Normal Neurologic: Alert, concrete pointer II-XII nml as Tested, No Motor Deficits, Normal Affect, Normal Mood, No Sensory Deficits Cerebellar Function: Normal Reflexes: Normal Skin: Dry, Normal Color, Warm Lymphatic: No Adenopathy Was a procedure done? Was a procedure done?: No Differential Diagnosis (DM) Differential Diagnosis: Hyperglycemia, UTI X-Ray, Labs, Meds, VS Vital Signs Date Time Temp Pulse Resp B/P (MAP) Pulse Ox O2 Delivery O2 Flow Rate FiO2 03/20/25 13:57 97 Room Air* 0 21 03/20/25 12:42 98.0 84 18 116/46 (69) 100 98.0 03/20/25 10:25 98.1 96 18 137/69 99 98.1 Lab Test 03/20/25 13:21 03/20/25 11:47 03/20/25 10:39 03/20/25 10:34 Range/Units POC Glucose 284 H 257 H 70-106 mg/dl Urine Color Light-yellow Yellow Urine Clarity Clear Clear Urine pH 6.5 5.0-9.0 Urine Specific [place] 1.008 1.001-1.035 Urine Protein Negative Negative Urine Ketones Negative Negative Urine Blood Negative Negative /uL Urine Nitrite Negative Negative Urine Bilirubin Negative Negative Urine Urobilinogen Normal Negative mg/dL Urine Leukocyte Esterase 1+ Negative /uL Urine RBC 1 0 - 4 /hpf Urine Microscopic WBC 5 0-5 /HPF Urine Squamous Epithelial Cells Few <5 /hpf Urine Bacteria Few H None Seen /hpf Urine Hyaline Casts Few 0 - 2 /lpf Urine Glucose 3+ H Normal mg/dL White Blood Count 7.9 4.4-10.8 10^3/uL Red Blood Count 4.40 4.0-5.20 10^6/uL Hemoglobin 12.6 12.2-16.2 g/dL Hematocrit 39.8 36.0-46.0 % Mean Corpuscular Volume 90.5 80.0-100.0 fL Mean Corpuscular Hemoglobin 28.5 28.0-32.0 pg Mean Corpuscular Hemoglobin Concent 31.5 L 32.0-36.0 g/dL Red Cell Distribution Width 14.2 11.8-14.3 % Platelet Count 315 140-450 10^3/uL Mean Platelet Volume 7.7 6.9-10.8 fL Neutrophils (%) (Auto) 71.1 37.0-80.0 % Lymphocytes (%) (Auto) 17.7 10.0-50.0 % Monocytes (%) (Auto) 6.9 0.0-12.0 % Eosinophils (%) (Auto) 3.6 0.0-7.0 % Basophils (%) (Auto) 0.7 0.0-2.0 % Neutrophils # (Auto) 5.6 1.6-8.6 10 ^3/uL Lymphocytes # (Auto) 1.4 0.4-5.4 10 ^3/uL Monocytes # (Auto) 0.5 0-1.3 10 ^3/uL Eosinophils # (Auto) 0.3 0-0.8 10 ^3/uL Basophils # (Auto) 0.1 0-0.2 10 ^3/uL Nucleated Red Blood Cells 0.0 % Sodium Level 138 136-145 mmol/L Potassium Level 4.1 3.5-5.1 mmol/L Chloride Level 100 98-107 mmol/L Carbon Dioxide Level 26 20-31 mmol/L Anion Gap 12 5-15 Blood Urea Nitrogen 37 H 9-23 mg/dL Creatinine 2.14 H 0.550-1.02 mg/dL Glomerular Filtration Rate Calc 24 >90 mL/min BUN/Creatinine Ratio 17.3 10.0-20.0 Serum Glucose 255 H 74-106 mg/dL Lactic Acid Level 1.3 0.4-2.0 mmol/L Calcium Level 10.1 8.7-10.4 mg/dL Magnesium Level 2.4 1.6-2.6 mg/dL Total Bilirubin 0.2 0.2-1.0 mg/dL Aspartate Amino Transferase (AST) 20 13-40 U/L Alanine Aminotransferase (ALT) 17 7-40 U/L Alkaline Phosphatase 91 46-116 U/L Total Protein 7.6 5.7-8.2 g/dL Albumin 4.5 3.2-4.8 g/dL Current Medications Medications (Trade) Dose Ordered Sig/Maggie Route Start Time Stop Time Status Last Admin Insulin Human Regular (InsuLIN R) 5 units ONCE ONCE SC 03/20/25 13:45 03/20/25 13:46 DC 03/20/25 13:47 X-Ray, Labs, Meds, VS Comment 11:57 The patient was re-assessed. Blood sugar is: 255mg/dl CBC: Hb 12.6 WBC: 7.9x10e3 CMP: crea: 2.14 GFR 24 UA is pending. 12:50 The UA is positive for UTI The blood sugar is 255mg /dl Time of 1ST Reevaluation: 11:57 Reevaluation 1ST: Improved Time of 2ND Reevaluation: 12:50 Reevaluation 2ND: Improved Patient Education/Counseling: Diagnosis, Treatment, Prognosis, Need For Follow Up Family Education/Counseling: Diagnosis, Treatment, Prognosis, Need For Follow Up SEPSIS Sepsis Screen Date sepsis recognized/suspect: Mar 20, 2025 Time Sepsis recognized/suspect: 1026 Recent Procedure: No On Antibiotic Therapy: No Respiratory Rate >20: No Heart Rate >90: No Temp<36 C (96.8 F) or >38.3 C: No SBP <90 or MAP <65 mmHG: No New Acute Mental Status Change: No Is the patient on CPAP, BIPAP,: No Physician Orders Hearing Aid Mechanic (03/20/25 ) Vital Signs Date Time Temp Pulse Resp B/P (MAP) Pulse Ox O2 Delivery O2 Flow Rate FiO2 03/20/25 13:57 97 Room Air* 0 21 03/20/25 12:42 98.0 84 18 116/46 (69) 100 98.0 03/20/25 10:25 98.1 96 18 137/69 99 98.1 Laboratory Tests Test 03/20/25 10:39 Lactic Acid Level 1.3 mmol/L (0.4-2.0) White Blood Count 7.9 10^3/uL (4.4-10.8) Medications Medications Dose Ordered Sig/Maggie Route Start Time Stop Time Status Last Admin Dose Admin Insulin Human Regular 5 units ONCE ONCE SC 03/20/25 13:45 03/20/25 13:46 DC 03/20/25 13:47 Departure 1 Departure Time of Disposition: 12:55 Impression: Primary Impression: Diabetes mellitus with hyperglycemia Additional Impressions: Chronic kidney disease UTI (urinary tract infection) Disposition: 01 HOME / SELF CARE / HOMELESS Condition: Good Additional Instructions: Additional instructions: Please read all instructions provided in this packet carefully. You MUST follow-up with your primary care/family doctor in 1 to 2 days. If you are unable to see your primary care/family doctor, please return to our emergency room for re-assessment and re-evaluation in 1 to 2 days. Return to the emergency room here in our facility or to the nearest ER [facility] if your symptoms change or worsen. CONSULTATIONS: you MUST Follow-up for consultation as soon as possible with: --endocrinology and nephrology in 1-2 days. Please call for appointment. You MUST call the consultants office yourself to make an appointment. You may need to arrange that through your insurance and/or your primary/family doctor. If you are unable to see the seo consultant in 1 to 2 days, you must return to our emergency room (or any other ER of your choice) for re-assessment and re- evaluation. Adequate fluid hydration. Although you have been discharged from the Emergency Department, this does not mean that you have a "clean bill of health". No definitive diagnosis for your symptoms has been made today. It is possible that you are in the process of developing a serious illness. This is why you must return to the ED without fail if any new or worsening symptoms develop. Monitoring blood sugar at home closely. e-Prescriptions Cephalexin Monohydrate (Cephalexin) 500 Mg Cap 250 MG PO Q12HR for 7 Days, #7 TAB Prov: KEN CONROY DO 03/20/25 Discharged With: Self Comments Goals of care discussed with the patient > 35 min. Discussed plan of care with Dr. Conroy Code status: Full code PCP: Plan discussed with: Patient, the patient agrees with the plan. Critical Care Note Critical Care Time?: No Stability Stability form required: No Heart Score Heart Score: Heart Score Response (Comments) Value History N/A 0 EKG N/A 0 Age N/A 0 Risk Factors N/A 0 Troponin N/A 0 Total 0 OLENA JULES RESIDENT Mar 20, 2025 11:14 KEN CONROY DO Mar 20, 2025 12:58
[2025-03-20 12:07] LABS: Urine Protein, UAD Negative (Negative)
[2025-03-20 12:42] VITALS: BP 116/46; PULSE 84; RESP 18; TEMP 98
[2025-03-20] MEDS ORDERED: CEPH500C PO (12:58)
[2025-03-20] MEDS ORDERED: InsuLIN REG 1unit/0.01ml Soln (100units/ml) IV ONE (13:30)
[2025-03-20] MEDS: InsuLIN REG 1unit/0.01ml Soln (100units/ml) SC ONE (13:47)
[2025-03-20 13:57] VITALS: O2SAT 97
[2025-03-20] MEDS ORDERED: FLUCONAZOLE 100 MG TAB PO ONE (14:00)
== END 2025-03-20 13:49 | disposition home or self-care (01) ==
LOC: ER 10:24
DX: I13.0 Hypertensive heart and chronic kidney disease with heart failure and stage 1 through stage 4 chronic kidney disease, or unspecified chronic kidney disease (principal); E11.22 Type 2 diabetes mellitus with diabetic chronic kidney disease; I50.9 Heart failure, unspecified; N18.32 Chronic kidney disease, stage 3b; N39.0 Urinary tract infection, site not specified; E11.65 Type 2 diabetes mellitus with hyperglycemia; E78.5 Hyperlipidemia, unspecified; F17.200 Nicotine dependence, unspecified, uncomplicated; J44.89 Other specified chronic obstructive pulmonary disease; Z79.899 Other long term (current) drug therapy; Z86.73 Personal history of transient ischemic attack (TIA), and cerebral infarction without residual deficits; Z91.0120 Allergy to eggs, unspecified; Z88.0 Allergy status to penicillin; Z88.1 Allergy status to other antibiotic agents; Z88.2 Allergy status to sulfonamides; Z88.5 Allergy status to narcotic agent; Z88.6 Allergy status to analgesic agent; Z88.8 Allergy status to other drugs, medicaments and biological substances; Z91.018 Allergy to other foods
CPT/HCPCS: 36415; 80053; 81001; 82947; 83605; 83735; 85025; 96372; 99283; J1815; 82962

== ENCOUNTER 2025-03-29 14:23 | Emergency (ER) | payer OTHER, MEDICAID ==
[~2025-03-29] VITALS: Ht 157.5 cm; Wt 82.0 kg
[~2025-03-29 14:23] MED LIST changes: +CEPH500C PO
[2025-03-29] MEDS: SODIUM CHLORIDE 0.9% 500 ML IV ONE (15:00)
--- NOTE | 2025-03-29 15:01 | ED.PDOC ---
Altered Mental Status HPI Comments 69y F who presents to the ED for chief complaint of ALOC. Pt was at for PCP appt and pt had syncopal while in PCP office and pt slumped over in walker and pt was assisted to the ground. Rapid response at was called. Pt presents to the ED, and was leaning on table and started to have dizziness episode and was assisted to the ground. Pt was alert and oriented upon rapid response team came to assist patient. Pt since has been having dizziness and feels like the room is spinning with associated nausea and headache. Pt otherwise has noted extensive medical history. Pt in the ED, noted to be in wheelchair and is on 2 L via nc with noted BP of 155/80 with otherwise stable vitals. Pt otherwise denies any other symptoms at this time. Chief Complaint: Syncope Time Seen by MD: 14:58 Primary Care Provider: UNKNOWN Reviewed Notes: Nurses Notes, Medications, Allergies Allergies: Coded Allergies: Egg-derived Products (Unverified Allergy, Severe, 01/28/23) NSAIDs (Unverified Allergy, Severe, 01/28/23) Oxycodone (Unverified Allergy, Severe, 01/28/23) Banana (Unverified Allergy, Intermediate, 01/28/23) Garlic (Unverified Allergy, Intermediate, 01/28/23) Oatmeal (Unverified Allergy, Intermediate, 01/28/23) Albuterol (Verified Allergy, Unknown, 05/22/24) Aspirin (Verified Allergy, Unknown, wheezing, 05/22/24) Caffeine (Verified Allergy, Unknown, 05/22/24) Chondroitin Sulfate A (Verified Allergy, Unknown, HIVES, 05/22/24) Cromolyn (Verified Allergy, Unknown, 05/22/24) Donepezil (Unverified Allergy, Unknown, 02/26/23) Epinephrine (Verified Allergy, Unknown, trouble breathing, 05/22/24) Erythromycin (Verified Allergy, Unknown, 05/22/24) Insulin Glargine (Verified Allergy, Unknown, 05/22/24) Levetiracetam (Unverified Allergy, Unknown, 02/26/23) Neomycin (Verified Allergy, Unknown, 05/22/24) Onion (Verified Allergy, Unknown, 05/22/24) Penicillins (Verified Allergy, Unknown, yeast infection, 05/22/24) Polymyxin B (Verified Allergy, Unknown, 05/22/24) Prednisone (Verified Allergy, Unknown, 05/22/24) Pseudoephedrine (Verified Allergy, Unknown, HIVES, 05/22/24) Regadenoson (Verified Allergy, Unknown, ANGINA, 05/22/24) Soybean Oil (Verified Allergy, Unknown, 07/05/24) Soybean Phosphatides (Verified Allergy, Unknown, 07/05/24) Soybean-containing Drug Products (Verified Allergy, Unknown, 07/05/24) Sulfa Antibiotics (Verified Allergy, Unknown, hives, 05/22/24) Theophylline (Verified Allergy, Unknown, 05/22/24) Triprolidine (Verified Allergy, Unknown, HIVES, 05/22/24) Codeine (Verified Adverse Reaction, Unknown, SOB, 05/22/24) Ibuprofen (Verified Adverse Reaction, Unknown, WHEEZING, 05/22/24) Lidocaine (Verified Adverse Reaction, Unknown, NV, 05/22/24) Uncoded Allergies: CHICKEN (Allergy, Severe, 01/28/23) DAIRY (Allergy, Severe, 01/28/23) LEAFY GREENS (Allergy, Severe, 01/28/23) PORK (Allergy, Severe, 01/28/23) BEEF (Allergy, Intermediate, 01/28/23) WHEAT FLOUR (Allergy, Intermediate, 01/28/23) WHOLE GRAIN (Allergy, Intermediate, 01/28/23) garlic (Allergy, Mild, 11/07/22) red meat (Allergy, Mild, nausea/ vomiting, 11/07/22) whole grains (Allergy, Mild, 11/07/22) CHONDROITION (Allergy, Unknown, HIVES SOB, 04/20/17) EGGS (Allergy, Unknown, 08/15/22) SALICYLATE (Allergy, Unknown, NV, 04/20/17) LETTUCE (Adverse Reaction, Intermediate, 01/28/23) TOMATOES (Adverse Reaction, Intermediate, 01/28/23) potato (Adverse Reaction, Intermediate, 04/20/24) per patient when she eats potatoes all of her joints swell and become painful STEROIDS (Adverse Reaction, Unknown, SOB, 04/20/17) Home Meds Active Scripts Cephalexin Monohydrate (Cephalexin) 500 Mg Cap, 250 MG PO Q12HR for 7 Days, #7 TAB Prov:KEN CONROY DO 03/20/25 Ketorolac Tromethamine (Ketorolac Tromethamine) 10 Mg Tab, 1 TAB PO TID PRN, #15 TAB Prov:KRISTA TILLMAN MD 11/28/24 Apixaban Base (ELIQUIS) 2.5 Mg Tab, 2.5 MG PO BID for 30 Days, #60 TAB Prov:KIRILL CHOW MD 05/28/24 Clopidogrel Bisulfate (Plavix) 75 Mg Tab, 75 MG PO DAILY for NEW CARDIAC STENT for 30 Days, #30 TAB Prov:KIRILL CHOW MD 05/28/24 Alum & Mag Hydrox-Simethicone (Mylanta Maximum Strength 400-400-40 mg/5Ml) 1 Misty Misty, 1 MISTY PO BIDP PRN, #120 ML Prov:CATRACHITO CLARK PAC 05/07/24 Furosemide (Lasix) 40 Mg Tab, 40 MG PO BID, #60 TAB Prov:CATRACHITO CLARK PAC 05/07/24 Reported Medications Montelukast Sodium (MONTELUKAST SODIUM) 10 Mg Tab, 1 TAB PO DAILY for ASTHMA, #30 TAB 5 Refills 05/22/24 Dulaglutide (Trulicity) 1.5 Mg/0.5 Ml Inj, 1.5 MG SC QWEEKLY, INJ 05/22/24 Zinc Gluconate (Zinc) 50 Mg Tab, 50 MG PO DAILY, TAB 05/22/24 Tocopheryl Acetate, Dl-Alpha (Vitamin E) 180 Mg Cap, 180 MG PO DAILY, CAP 05/22/24 Docusate Sodium (Colace) 100 Mg Cap, 100 MG PO DAILY, CAP 05/22/24 Guaifenesin (Mucinex) 600 Mg Tab, 1 TAB PO BID, #14 TAB 05/22/24 Diclofenac Sodium (Topical) (Aleve Arthritis Pain) 1 % Gel, 1 % EX TID, GEL 05/22/24 Methocarbamol (Methocarbamol) 500 Mg Tab, 500 MG PO Q8HPRN PRN for MUSCLE SPASMS for 30 Days, MG 05/22/24 Ezetimibe (Zetia) 10 Mg Tab, 1 TAB PO DAILY, #30 TAB 5 Refills 05/22/24 Rosuvastatin Calcium (Crestor) 20 Mg Tab, 1 TAB PO DAILY, #30 TAB 5 Refills 05/22/24 Pancrelipase (Lipase-Protease- (CREON) 36,000 Unt Cap, 67457 UNT OR DAILY for TAKES 8 A DAY, CAP 05/22/24 Hydralazine Hcl (Hydralazine Hcl) 25 Mg Tab, 25 MG PO for CHF/BP, MG 05/22/24 Pantoprazole Sodium Sesquihydr (Protonix) 40 Mg Tab, 40 MG PO DAILY for STOMACH, #30 TAB 04/17/23 Triamcinolone Acetonide (Triamcinolone Acetonide) 0.1 % Pst, 1 APPLIC TOP BID, APPLIC 11/08/22 Ipratropium [place] Hfa (Atrovent Hfa) 17 Mcg Aer, 2 PUFF INH QID, #12.9 GRAMS 5 Refills 11/08/22 Loratadine (Claritin) 10 Mg Tab, 1 TAB PO DAILY, #30 TAB 5 Refills 11/08/22 Gabapentin (Gabapentin) 300 Mg Cap, 300 MG PO QAM for 1 morn, 1 noon, 2 bedtime for 30 Days, MG 11/08/22 Amitriptyline Hcl (Amitriptyline Hcl) 25 Mg Tab, 50 MG PO HS for 30 Days, MG 11/08/22 Venlafaxine Hcl (Venlafaxine Hcl Er) 150 Mg Cap, 1 CAP PO DAILY, #30 CAP 1 Refill 11/08/22 Acetaminophen (Tylenol) 325 Mg Cap, 500 MG PO QID, CAP 11/06/22 Ondansetron HCl (Ondansetron) 4 Mg Tab, 8 MG PO BIDP PRN for NAUSEA / VOMITING, TAB 11/06/22 Lorazepam (ATIVAN TABLET) 0.5 Mg Tb, 0.5 MG PO QIDP, TAB 11/06/22 Scopolamine (Scopolamine) 1 Mg/3 Days Dis, 1 MG TD, DIS 11/06/22 Folic Acid (Folic Acid) 1 Mg Tab, 1 MG PO DAILY for 30 Days, MG 11/06/22 Febuxostat (Uloric) 40 Mg Tab, 40 MG PO DAILY, TAB 11/06/22 Hydroxychloroquine Sulfate (Hydroxychloroquine Sulfat) 200 Mg Tab, 200 MG PO DAILY for 30 Days, MG 11/06/22 Insulin Lispro (Insulin Lispro Kwikpen) 100 Unit/Ml Inj, 100 UNIT SC, INJ 11/06/22 Baclofen (ED BACLOFEN) 10 Mg Tab, 20 MG PO QID, TAB 09/23/13 Information Source: Patient, Relative Mode of Arrival: Wheelchair Brought in by: daughter Severity: Moderate Timing: Minutes Duration: Since onset Prehospital treatment: 12 Lead EKG Quality: Decreased Alertness History of: Diabetes Associated Signs and Symptoms: None Past Medical History PAST MEDICAL HISTORY: Anemia, Anxiety, Asthma, CHF, CKF, Depression, DM, Gout, High Lipids, HTN, TIA Surgical History: , [employer] History: Denies all [employer] Hx Family History Family History: Reviewed,noncontributory to illness, Unknown Social History Smoker: Secondhand Alcohol: Denies ETOH Use Drugs: Denies Drug Use Lives In: Home Constitutional: reports: malaise, weakness; denies: chills, diaphoresis, fatigue, fever, sweats, others EENTM: denies: blurred vision, double vision, ear bleeding, ear discharge, ear drainage, ear pain, ear ringing, eye pain, eye redness, hearing loss, mouth pain, mouth swelling, nasal discharge, nose bleeding, nose congestion, nose pain, photophobia, tearing, throat pain, throat swelling, voice changes, others Respiratory: denies: cough, hemoptysis, orthopnea, SOB at rest, shortness of breath, SOB with excertion, stridor, wheezing, others Cardiovascular: denies: chest pain, dizzy spells, diaphoresis, Dyspnea on exertion, edema, irregular heart beat, left arm pain, lightheadedness, palpitations, PND, syncope, others Gastrointestinal: reports: nausea; denies: abdomen distended, abdominal pain, blood streaked bowels, constipated, diarrhea, dysphagia, difficulty swallowing, hematemesis, melena, poor appetite, poor fluid intake, rectal bleeding, rectal pain, vomiting, others Genitourinary: denies: abnormal vagina bleeding, burning, dyspareunia, dysuria, flank pain, frequency, hematuria, incontinence, pain, , vagina discharge, urgency, others Neurological: reports: dizziness, fainting, headache; denies: left sided numbness, left sided weakness, numbness, paresthesia, pre-existing deficit, right sided numbness, right sided weakness, seizure, speech problems, tingling, tremors, weakness, others Musculoskeletal: denies: back pain, gout, joint pain, joint swelling, muscle pain, muscle stiffness, neck pain, others Integumetry: denies: bruises, change in color, change in hair/nails, dryness, laceration, lesions, lumps, rash, wounds, others Allergic/Immunocompromised: denies: Difficulty Healing, Frequent Infections, Hives, Itching, others Hematologic/Lymphatic: denies: anemia, blood clots, easy bleeding, easy bruising, swollen glands, others Endocrine: denies: excessive hunger, excessive sweating, excessive thirst, excessive urination, flushing, intolerance to cold, intolerance to heat, unexplained weight gain, unexplained weight loss, others Psychiatric: denies: anxiety, bipolar disorder, depression, hopeless, panic disorder, schizophrenia, sleepless, suicidal, others All Other Systems: Reviewed and Negative Physical Exam General Appearance: Moderate Distress HEENT: Normal ENT Inspection, Pharynx Normal, TMs Normal, Other (The patient has a nasal cannula in place) Neck: Full Range of Motion, Non-Tender, Normal, Normal Inspection Respiratory: Chest Non-Tender, Lungs Clear, No Accessory Muscle Use, No Respiratory Distress, Normal Breath Sounds Cardiovascular: No Edema, No JVD, No Murmur, No Gallop, Normal Peripheral Pulses, Regular Rate/Rhythm Breast Exam: Deferred Gastrointestinal: No Organomegaly, Non Tender, No Pulsatile Mass, Normal Bowel Sounds, Soft Genitalia: Deferred Pelvic: Deferred Rectal: Deferred Extremities: No calf tenderness, Normal capillary refill, No pedal edema Musculoskeletal : Apperance: Normal Neurologic: sole assessor II-XII nml as Tested, Motor Weakness, Normal Affect, Normal Mood, No Sensory Deficits Cerebellar Function: Normal Reflexes: Normal Skin: Dry, Pallor, Warm Lymphatic: No Adenopathy EKG EKG : Pulse Rate (adult): 83 [place]: Normal Cardiac Rhythm: NSR Block: None Hypertrophy: None Comments nonspecific intraventricular conduction delay Was a procedure done? Was a procedure done?: No Differential Diagnosis (ALOC) Differential Diagnosis: Dehydration, Hypoglycemia, DKA, Encephalopathy, Sepsis, Hypoxemia, Closed Head Injury Other Differential Diagnosis generalized weakness, metabolic encephalopathy, UTI, CHF exacerbation X-Ray, Labs, Meds, VS Vital Signs Date Time Temp Pulse Resp B/P (MAP) Pulse Ox O2 Delivery O2 Flow Rate FiO2 03/29/25 16:53 80 14 155/79 (104) 100 03/29/25 15:01 83 03/29/25 14:34 96 Nasal Cannula* 2 28 03/29/25 14:25 96.1 91 15 155/80 96 96.1 Lab Test 03/29/25 15:40 03/29/25 15:07 Range/Units Urine Color Yellow Yellow Urine Clarity Clear Clear Urine pH 6.5 5.0-9.0 Urine Specific [place] 1.010 1.001-1.035 Urine Protein Negative Negative Urine Ketones Negative Negative Urine Blood Negative Negative /uL Urine Nitrite Negative Negative Urine Bilirubin Negative Negative Urine Urobilinogen Normal Negative mg/dL Urine Leukocyte Esterase Negative Negative /uL Urine RBC 1 0 - 4 /hpf Urine Microscopic WBC < 1 0-5 /HPF Urine Squamous Epithelial Cells Few <5 /hpf Urine Bacteria Few H None Seen /hpf Urine Glucose 2+ H Normal mg/dL White Blood Count 6.6 4.4-10.8 10^3/uL Red Blood Count 4.39 4.0-5.20 10^6/uL Hemoglobin 12.6 12.2-16.2 g/dL Hematocrit 37.9 36.0-46.0 % Mean Corpuscular Volume 86.4 80.0-100.0 fL Mean Corpuscular Hemoglobin 28.6 28.0-32.0 pg Mean Corpuscular Hemoglobin Concent 33.2 32.0-36.0 g/dL Red Cell Distribution Width 13.8 11.8-14.3 % Platelet Count 327 140-450 10^3/uL Mean Platelet Volume 8.0 6.9-10.8 fL Neutrophils (%) (Auto) 67.4 37.0-80.0 % Lymphocytes (%) (Auto) 21.8 10.0-50.0 % Monocytes (%) (Auto) 8.0 0.0-12.0 % Eosinophils (%) (Auto) 2.3 0.0-7.0 % Basophils (%) (Auto) 0.5 0.0-2.0 % Neutrophils # (Auto) 4.4 1.6-8.6 10 ^3/uL Lymphocytes # (Auto) 1.4 0.4-5.4 10 ^3/uL Monocytes # (Auto) 0.5 0-1.3 10 ^3/uL Eosinophils # (Auto) 0.2 0-0.8 10 ^3/uL Basophils # (Auto) 0 0-0.2 10 ^3/uL Nucleated Red Blood Cells 0.0 % Sodium Level 138 136-145 mmol/L Potassium Level 3.6 3.5-5.1 mmol/L Chloride Level 101 98-107 mmol/L Carbon Dioxide Level 26 20-31 mmol/L Anion Gap 11 5-15 Blood Urea Nitrogen 36 H 9-23 mg/dL Creatinine 1.79 H 0.550-1.02 mg/dL Glomerular Filtration Rate Calc 30 >90 mL/min BUN/Creatinine Ratio 20.1 H 10.0-20.0 Serum Glucose 233 H 74-106 mg/dL Calcium Level 9.9 8.7-10.4 mg/dL PROCEDURE(s): HWOCT - HEAD WITHOUT CONTRAST IMPRESSION: NO ACUTE INTRACRANIAL ABNORMALITY SEEN. PROCEDURE(s): CXR2 - CHEST TWO VIEWS ROUTINE REASON: syncope ORDER NUMBER(s): [id number], ACCESSION NUMBER(s): [id number] XY CHEST TWO VIEWS ROUTINE IMPRESSION: 1. Improved cardiac size and bibasilar airspace disease. The patient's CBC is within normal limits The chemistry panel is within normal limits The BUN is 36 and the creatinine is 1.79 The patient is hyperglycemic at 233 The urine test is negative for any infection At this time, the patient will be admitted to the hospitalist. Images Reviewed?: Images reviewed and evaluated by me Time of 1ST Reevaluation: 15:30 Reevaluation 1ST: Unchanged Patient Education/Counseling: Diagnosis, Treatment, Prognosis Family Education/Counseling: Diagnosis, Treatment, Prognosis SEPSIS Sepsis Screen Date sepsis recognized/suspect: Mar 29, 2025 Time Sepsis recognized/suspect: 1428 Recent Procedure: No On Antibiotic Therapy: No Respiratory Rate >20: No Heart Rate >90: No Temp<36 C (96.8 F) or >38.3 C: No SBP <90 or MAP <65 mmHG: No New Acute Mental Status Change: No Is the patient on CPAP, BIPAP,: No Physician Orders Electrocardigram (03/29/25 14:33) Chest Two Views Routine (03/29/25 14:46) Heplock Iv (03/29/25 14:46) Foam Rubber Molder (03/29/25 14:46) Blood Pressure (03/29/25 14:46) Pulse Oximetry (03/29/25 14:46) Head Without Contrast (03/29/25 14:46) Vital Signs Date Time Temp Pulse Resp B/P (MAP) Pulse Ox O2 Delivery O2 Flow Rate FiO2 03/29/25 16:53 80 14 155/79 (104) 100 03/29/25 15:01 83 03/29/25 14:34 96 Nasal Cannula* 2 28 03/29/25 14:25 96.1 91 15 155/80 96 96.1 Laboratory Tests Test 03/29/25 15:07 White Blood Count 6.6 10^3/uL (4.4-10.8) Departure 1 Departure Time of Disposition: 17:00 Impression: Primary Impression: Autonomic dysfunction Additional Impression: Episode of syncope Qualified Codes: R55 - Syncope and collapse Disposition: ADMITTED INPATIENT Admit to: [facility] Condition: Fair Critical Care Note Critical Care Time?: No Stability Stability form required: Yes Unstable for transfer: Telemetry monitoring (Telemetry monitoring required), ED Physician Assesment (Clinical assesment) Heart Score Heart Score: Heart Score Response (Comments) Value History N/A 0 EKG N/A 0 Age N/A 0 Risk Factors N/A 0 Troponin N/A 0 Total 0 I personally scribed for MAGDIEL LALA MD ([email or web address]) on 03/29/25 at 15:01. Electronically submitted by Trey Antunez ([email or web address] I personally scribed for MAGDIEL LALA MD ([email or web address]) on 03/29/25 at 15:44. Electronically submitted by Trey Antunez ([facility]). MAGDIEL LALA MD Mar 29, 2025 15:01
--- NOTE | 2025-03-29 15:17 | DVH ---
XY CHEST TWO VIEWS ROUTINE CLINICAL HISTORY: syncope COMPARISON: XY CHEST TWO VIEWS ROUTINE on DOS: 07/04/24, XY CHEST TWO VIEWS ROUTINE on DOS: 05/28/24, XY CHEST TWO VIEWS ROUTINE on DOS: 03/05/23 TECHNIQUE: Frontal and lateral view of the chest was obtained FINDINGS: Lines and Tubes: None Lungs: No focal consolidation.. Improved bibasilar airspace disease Pleura: No effusion. No pneumothorax. Cardiomediastinal contours: Decreased cardiac size Bones: No acute osseous abnormality. IMPRESSION: 1. Improved cardiac size and bibasilar airspace disease.
[2025-03-29 15:28] LABS: Chloride 101 mmol/L (98-107); Potassium 3.6 mmol/L (3.5-5.1); Sodium 138 mmol/L (136-145)
[2025-03-29 15:29] LABS: Anion Gap 11 (5-15); Calcium 9.9 mg/dL (8.7-10.4); Carbon Dioxide 26 mmol/L (20-31)
[2025-03-29 15:32] LABS: Hematocrit 37.9 % (36.0-46.0); Hemoglobin 12.6 g/dL (12.2-16.2); Mean Corpuscular Hemoglobin 28.6 pg (28.0-32.0); Mean Corpuscular Volume 86.4 fL (80.0-100.0); Nucleated Red Blood Cells % 0.0 %
[2025-03-29 15:34] LABS: BUN/Creatinine Ratio 20.1 (10.0-20.0)
[2025-03-29 15:36] LABS: Blood Urea Nitrogen 36 mg/dL (9-23); Glucose 233 mg/dL (74-106)
--- NOTE | 2025-03-29 15:38 | DVH ---
CLINICAL HISTORY: syncope TECHNIQUE: Helical scanning was performed of the head from the skull base to the vertex. Multiplanar reconstructions were performed. This exam was performed according to our departmental dose optimizat ion program. Up-to-date CT equipment and radiation dose reduction techniques are utilized as appropri ate. CTDI 59 DLP 1159 COMPARISON: CT HEAD WITHOUT CONTRAST on DOS: 05/07/24, MRI BRAIN HEAD WO CONTRAST on DOS: 05/02/23, C T HEAD WITHOUT CONTRAST on DOS: 02/26/23, CT HEAD WITHOUT CONTRAST on DOS: 01/28/23, MRI BRAIN HEAD WO CONTRAST on DOS: 08/28/22 FINDINGS: There is no evidence for acute intracranial hemorrhage, acute ischemic changes, mass, mass effect, or extra-axial fluid collection. There is no hydrocephalus or midline shift. There is no effacement of the cerebral sulci and basal subarachnoid cisterns. The guevara-white matter differentiation is well linn ntained. The imaged paranasal sinuses are clear. IMPRESSION: NO ACUTE INTRACRANIAL ABNORMALITY SEEN.
[2025-03-29 16:00] LABS: Urine Protein, UAD Negative (Negative)
[2025-03-29 19:30] LABS: COVID19 ANTIGEN SOFIA FIA NEGATIVE (NEGATIVE)
[2025-03-29 19:40] VITALS: BP 112/55; PULSE 81; RESP 20; TEMP 97.5; O2SAT 96
--- NOTE | 2025-03-31 09:03 | ECG ---
[facility] Test Date: 2025-03-29 Test Time: 14:36:20 Pat Name: ASHLEIGH SINGH Department: ED Room: Gender: F [employer]: [place] : 1955 Requested By: MAGDIEL LALA Order Number: [id number] Reading MD: Masood Pope Measurements Intervals [place] Rate: 83 P: 0 FL: 0 QRS: 158 QRSD: 163 T: 57 QT: 527 QTc: 620 Interpretive Statements Normal sinus rhythm with first-degree AV block Nonspecific intraventricular conduction delay Lateral infarct, old Probable anteroseptal infarct, old Electronically Signed On 03-31-2025 9:04:51 PDT by Masood Pope Please click the below link to view image of tracing.
== END 2025-03-29 19:47 | disposition left against medical advice (07) ==
LOC: ER 14:23
DX: G90.9 Disorder of the autonomic nervous system, unspecified (principal); R55 Syncope and collapse; F17.200 Nicotine dependence, unspecified, uncomplicated; F41.9 Anxiety disorder, unspecified; F32.A Depression, unspecified; I13.0 Hypertensive heart and chronic kidney disease with heart failure and stage 1 through stage 4 chronic kidney disease, or unspecified chronic kidney disease; E11.22 Type 2 diabetes mellitus with diabetic chronic kidney disease; N18.9 Chronic kidney disease, unspecified; I50.9 Heart failure, unspecified; E78.5 Hyperlipidemia, unspecified; M10.9 Gout, unspecified; J45.909 Unspecified asthma, uncomplicated; Z79.899 Other long term (current) drug therapy; Z98.890 Other specified postprocedural states; Z91.018 Allergy to other foods; Z88.6 Allergy status to analgesic agent; Z88.2 Allergy status to sulfonamides; Z86.73 Personal history of transient ischemic attack (TIA), and cerebral infarction without residual deficits; Z79.85 Long-term (current) use of injectable non-insulin antidiabetic drugs; Z79.01 Long term (current) use of anticoagulants; Z79.02 Long term (current) use of antithrombotics/antiplatelets; Z88.0 Allergy status to penicillin; Z88.1 Allergy status to other antibiotic agents; Z88.5 Allergy status to narcotic agent; Z88.8 Allergy status to other drugs, medicaments and biological substances; Z91.0120 Allergy to eggs, unspecified; Z20.822 Contact with and (suspected) exposure to COVID-19
CPT/HCPCS: 36415; 70450; 71046; 80048; 81001; 82947; 85025; 87426; 87804; 93005; 96360; 96361; 99285; J7040

== ENCOUNTER 2025-04-02 12:59 | Inpatient (IN) | payer OTHER, MEDICAID ==
[~2025-04-02] VITALS: Ht 170.2 cm; Wt 87.9 kg
[2025-04-02] MEDS: SODIUM CHLORIDE 0.9% 1,000 ML IV ONE ×2 (13:30)
--- NOTE | 2025-04-02 13:47 | ED.PDOC ---
Altered Mental Status HPI Comments 69-year-old female with primary history of diabetes, hyperlipidemia, hypertension, gout, CHF, CKD F, and TIA, presents to the ED via EMS for an evaluation of altered mental status. EMS reports patient lives in a boarding care facility where she was being assisted to the toilet and that is when she became spontaneously confused. Patient has been seen at this facility for similar confusion that is accompanied by essential tremors. EMS noted a blood glucose level of 320 and states that patient is being currently treated for a UTI. No family present at the ED therefore no more information available at this time Chief Complaint: ALOC Time Seen by MD: 13:04 Primary Care Provider: UNKNOWN Reviewed Notes: Nurses Notes, Acid Extractor Notes, Medications, Allergies Allergies: Coded Allergies: Egg-derived Products (Unverified Allergy, Severe, 01/28/23) NSAIDs (Unverified Allergy, Severe, 01/28/23) Oxycodone (Unverified Allergy, Severe, 01/28/23) Banana (Unverified Allergy, Intermediate, 01/28/23) Garlic (Unverified Allergy, Intermediate, 01/28/23) Oatmeal (Unverified Allergy, Intermediate, 01/28/23) Albuterol (Verified Allergy, Unknown, 05/22/24) Aspirin (Verified Allergy, Unknown, wheezing, 05/22/24) Caffeine (Verified Allergy, Unknown, 05/22/24) Chondroitin Sulfate A (Verified Allergy, Unknown, HIVES, 05/22/24) Cromolyn (Verified Allergy, Unknown, 05/22/24) Donepezil (Unverified Allergy, Unknown, 02/26/23) Epinephrine (Verified Allergy, Unknown, trouble breathing, 05/22/24) Erythromycin (Verified Allergy, Unknown, 05/22/24) Insulin Glargine (Verified Allergy, Unknown, 05/22/24) Levetiracetam (Unverified Allergy, Unknown, 02/26/23) Neomycin (Verified Allergy, Unknown, 05/22/24) Onion (Verified Allergy, Unknown, 05/22/24) Penicillins (Verified Allergy, Unknown, yeast infection, 05/22/24) Polymyxin B (Verified Allergy, Unknown, 05/22/24) Prednisone (Verified Allergy, Unknown, 05/22/24) Pseudoephedrine (Verified Allergy, Unknown, HIVES, 05/22/24) Regadenoson (Verified Allergy, Unknown, ANGINA, 05/22/24) Soybean Oil (Verified Allergy, Unknown, 07/05/24) Soybean Phosphatides (Verified Allergy, Unknown, 07/05/24) Soybean-containing Drug Products (Verified Allergy, Unknown, 07/05/24) Sulfa Antibiotics (Verified Allergy, Unknown, hives, 05/22/24) Theophylline (Verified Allergy, Unknown, 05/22/24) Triprolidine (Verified Allergy, Unknown, HIVES, 05/22/24) Codeine (Verified Adverse Reaction, Unknown, SOB, 05/22/24) Ibuprofen (Verified Adverse Reaction, Unknown, WHEEZING, 05/22/24) Lidocaine (Verified Adverse Reaction, Unknown, NV, 05/22/24) Uncoded Allergies: CHICKEN (Allergy, Severe, 01/28/23) DAIRY (Allergy, Severe, 01/28/23) LEAFY GREENS (Allergy, Severe, 01/28/23) PORK (Allergy, Severe, 01/28/23) BEEF (Allergy, Intermediate, 01/28/23) WHEAT FLOUR (Allergy, Intermediate, 01/28/23) WHOLE GRAIN (Allergy, Intermediate, 01/28/23) garlic (Allergy, Mild, 11/07/22) red meat (Allergy, Mild, nausea/ vomiting, 11/07/22) whole grains (Allergy, Mild, 11/07/22) CHONDROITION (Allergy, Unknown, HIVES SOB, 04/20/17) EGGS (Allergy, Unknown, 08/15/22) SALICYLATE (Allergy, Unknown, NV, 04/20/17) LETTUCE (Adverse Reaction, Intermediate, 01/28/23) TOMATOES (Adverse Reaction, Intermediate, 01/28/23) potato (Adverse Reaction, Intermediate, 04/20/24) per patient when she eats potatoes all of her joints swell and become painful STEROIDS (Adverse Reaction, Unknown, SOB, 04/20/17) Home Meds Active Scripts Cephalexin Monohydrate (Cephalexin) 500 Mg Cap, 250 MG PO Q12HR for 7 Days, #7 TAB Prov:KEN CONROY DO 03/20/25 Ketorolac Tromethamine (Ketorolac Tromethamine) 10 Mg Tab, 1 TAB PO TID PRN, #15 TAB Prov:KRISTA TILLMAN MD 11/28/24 Apixaban Base (ELIQUIS) 2.5 Mg Tab, 2.5 MG PO BID for 30 Days, #60 TAB Prov:KIRILL CHOW MD 05/28/24 Clopidogrel Bisulfate (Plavix) 75 Mg Tab, 75 MG PO DAILY for NEW CARDIAC STENT for 30 Days, #30 TAB Prov:KIRILL CHOW MD 05/28/24 Alum & Mag Hydrox-Simethicone (Mylanta Maximum Strength 400-400-40 mg/5Ml) 1 Misty Misty, 1 MISTY PO BIDP PRN, #120 ML Prov:CATRACHITO CLARK PAC 05/07/24 Furosemide (Lasix) 40 Mg Tab, 40 MG PO BID, #60 TAB Prov:CATRACHITO CLARK PAC 05/07/24 Reported Medications Montelukast Sodium (MONTELUKAST SODIUM) 10 Mg Tab, 1 TAB PO DAILY for ASTHMA, #30 TAB 5 Refills 05/22/24 Dulaglutide (Trulicity) 1.5 Mg/0.5 Ml Inj, 1.5 MG SC QWEEKLY, INJ 05/22/24 Zinc Gluconate (Zinc) 50 Mg Tab, 50 MG PO DAILY, TAB 05/22/24 Tocopheryl Acetate, Dl-Alpha (Vitamin E) 180 Mg Cap, 180 MG PO DAILY, CAP 05/22/24 Docusate Sodium (Colace) 100 Mg Cap, 100 MG PO DAILY, CAP 05/22/24 Guaifenesin (Mucinex) 600 Mg Tab, 1 TAB PO BID, #14 TAB 05/22/24 Diclofenac Sodium (Topical) (Aleve Arthritis Pain) 1 % Gel, 1 % EX TID, GEL 05/22/24 Methocarbamol (Methocarbamol) 500 Mg Tab, 500 MG PO Q8HPRN PRN for MUSCLE SPASMS for 30 Days, MG 05/22/24 Ezetimibe (Zetia) 10 Mg Tab, 1 TAB PO DAILY, #30 TAB 5 Refills 05/22/24 Rosuvastatin Calcium (Crestor) 20 Mg Tab, 1 TAB PO DAILY, #30 TAB 5 Refills 05/22/24 Pancrelipase (Lipase-Protease- (CREON) 36,000 Unt Cap, [address]66[address] UNT OR DAILY for TAKES 8 A DAY, CAP 05/22/24 Hydralazine Hcl (Hydralazine Hcl) 25 Mg Tab, 25 MG PO for CHF/BP, MG 05/22/24 Pantoprazole Sodium Sesquihydr (Protonix) 40 Mg Tab, 40 MG PO DAILY for STOMACH, #30 TAB 04/17/23 Triamcinolone Acetonide (Triamcinolone Acetonide) 0.1 % Pst, 1 APPLIC TOP BID, APPLIC 11/08/22 Ipratropium [place] Hfa (Atrovent Hfa) 17 Mcg Aer, 2 PUFF INH QID, #12.9 GRAMS 5 Refills 11/08/22 Loratadine (Claritin) 10 Mg Tab, 1 TAB PO DAILY, #30 TAB 5 Refills 11/08/22 Gabapentin (Gabapentin) 300 Mg Cap, 300 MG PO QAM for 1 morn, 1 noon, 2 bedtime for 30 Days, MG 11/08/22 Amitriptyline Hcl (Amitriptyline Hcl) 25 Mg Tab, 50 MG PO HS for 30 Days, MG 11/08/22 Venlafaxine Hcl (Venlafaxine Hcl Er) 150 Mg Cap, 1 CAP PO DAILY, #30 CAP 1 Refill 11/08/22 Acetaminophen (Tylenol) 325 Mg Cap, 500 MG PO QID, CAP 11/06/22 Ondansetron HCl (Ondansetron) 4 Mg Tab, 8 MG PO BIDP PRN for NAUSEA / VOMITING, TAB 11/06/22 Lorazepam (ATIVAN TABLET) 0.5 Mg Tb, 0.5 MG PO QIDP, TAB 11/06/22 Scopolamine (Scopolamine) 1 Mg/3 Days Dis, 1 MG TD, DIS 11/06/22 Folic Acid (Folic Acid) 1 Mg Tab, 1 MG PO DAILY for 30 Days, MG 11/06/22 Febuxostat (Uloric) 40 Mg Tab, 40 MG PO DAILY, TAB 11/06/22 Hydroxychloroquine Sulfate (Hydroxychloroquine Sulfat) 200 Mg Tab, 200 MG PO DAILY for 30 Days, MG 11/06/22 Insulin Lispro (Insulin Lispro Kwikpen) 100 Unit/Ml Inj, 100 UNIT SC, INJ 11/06/22 Baclofen (ED BACLOFEN) 10 Mg Tab, 20 MG PO QID, TAB 09/23/13 Information Source: Emergency Med Personnel Mode of Arrival: EMS Severity: Other (altered ) Timing: Hours Duration: Since onset Recent: Other (patient is altered ) History of: Diabetes Associated Signs and Symptoms: Other (patient is altered ) Past Medical History PAST MEDICAL HISTORY: Anemia, Anxiety, Asthma, CHF, CKF, Depression, DM, Gout, High Lipids, HTN, TIA Surgical History: , 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 History: Denies all MAP MAKER Hx Family History Family History: Reviewed,noncontributory to illness, Unknown Social History Smoker: Secondhand Alcohol: Denies ETOH Use Drugs: Denies Drug Use Lives In: Home Unable to Obtain due to: Altered Mental Status Physical Exam General Appearance: Moderate Distress HEENT: Normal ENT Inspection, Pharynx Normal, TMs Normal Neck: Full Range of Motion, Non-Tender, Normal, Normal Inspection Respiratory: Chest Non-Tender, Lungs Clear, No Accessory Muscle Use, No Respiratory Distress, Normal Breath Sounds Cardiovascular: No Edema, No JVD, No Murmur, No Gallop, Normal Peripheral Pulses, Regular Rate/Rhythm Breast Exam: Deferred Gastrointestinal: No Organomegaly, Non Tender, No Pulsatile Mass, Normal Bowel Sounds, Soft Genitalia: Deferred Pelvic: Deferred Rectal: Deferred Extremities: No calf tenderness, Pedal edema Musculoskeletal : Apperance: Normal Neurologic: Disoriented Cerebellar Function: NOT DONE Reflexes: NOT DONE Skin: Normal Color Peripheral Pulses: 3+ Radial (R), 3+ Radial (L) Lymphatic: No Adenopathy Was a procedure done? Was a procedure done?: No Differential Diagnosis (ALOC) Differential Diagnosis: Dehydration, Sepsis, Heart Failure, Renal Failure X-Ray, Labs, Meds, VS Vital Signs Date Time Temp Pulse Resp B/P (MAP) Pulse Ox O2 Delivery O2 Flow Rate FiO2 04/02/25 13:28 95 04/02/25 13:00 98.8 90 22 141/74 99 98.8 Lab Test 04/02/25 14:31 04/02/25 14:09 Range/Units Prothrombin Time Pending Prothrombin Time INR Pending Activated Partial Thromboplast Time Pending Lactic Acid Level 1.7 0.4-2.0 mmol/L White Blood Count 10.2 # 4.4-10.8 10^3/uL Red Blood Count 4.35 4.0-5.20 10^6/uL Hemoglobin 12.6 12.2-16.2 g/dL Hematocrit 38.5 36.0-46.0 % Mean Corpuscular Volume 88.6 80.0-100.0 fL Mean Corpuscular Hemoglobin 28.9 28.0-32.0 pg Mean Corpuscular Hemoglobin Concent 32.6 32.0-36.0 g/dL Red Cell Distribution Width 13.9 11.8-14.3 % Platelet Count 279 140-450 10^3/uL Mean Platelet Volume 8.2 6.9-10.8 fL Neutrophils (%) (Auto) 82.0 H 37.0-80.0 % Lymphocytes (%) (Auto) 12.0 10.0-50.0 % Monocytes (%) (Auto) 5.1 0.0-12.0 % Eosinophils (%) (Auto) 0.6 0.0-7.0 % Basophils (%) (Auto) 0.3 0.0-2.0 % Neutrophils # (Auto) 8.3 1.6-8.6 10 ^3/uL Lymphocytes # (Auto) 1.2 0.4-5.4 10 ^3/uL Monocytes # (Auto) 0.5 0-1.3 10 ^3/uL Eosinophils # (Auto) 0.1 0-0.8 10 ^3/uL Basophils # (Auto) 0 0-0.2 10 ^3/uL Nucleated Red Blood Cells 0.1 % Sodium Level 144 # 136-145 mmol/L Potassium Level 3.6 3.5-5.1 mmol/L Chloride Level 108 H 98-107 mmol/L Carbon Dioxide Level 21 20-31 mmol/L Anion Gap 15 5-15 Blood Urea Nitrogen 29 H 9-23 mg/dL Creatinine 1.58 H 0.550-1.02 mg/dL Glomerular Filtration Rate Calc 35 >90 mL/min BUN/Creatinine Ratio 18.4 10.0-20.0 Serum Glucose 296 H 74-106 mg/dL Calcium Level 9.5 8.7-10.4 mg/dL Total Bilirubin 0.3 0.2-1.0 mg/dL Aspartate Amino Transferase (AST) 23 13-40 U/L Alanine Aminotransferase (ALT) 17 7-40 U/L Alkaline Phosphatase 90 46-116 U/L Total Protein 7.4 5.7-8.2 g/dL Albumin 4.3 3.2-4.8 g/dL Current Medications Medications (Trade) Dose Ordered Sig/Maggie Route Start Time Stop Time Status Last Admin Cefepime HCl 50 ml @ 12.5 mls/hr Q8HR IV 04/02/25 14:00 04/02/25 14:00 Sodium Chloride 1,000 ml @ 1,000 mls/hr Q1H ONCE IV 04/02/25 13:30 04/02/25 14:29 DC 04/02/25 13:30 Sodium Chloride 1,000 ml @ 150 mls/hr Q6H40M ONCE IV 04/02/25 13:30 04/02/25 20:09 04/02/25 13:30 Patient altered. Unable to get any history from the patient. Last seen normal 3 hours prior to coming to the ER. Blood sugar elevated. Possible sepsis from urine. Placed a Wilhelm catheter. Establish intravenous access. Was given fluids. Was given antibiotics. Continue monitoring. X-Ray, Labs, Meds, VS Comment [place] [id number] Ph: [phone] DIAGNOSTIC IMAGING Diagnostic Imaging Report : [id number] Signed PATIENT: ASHLEIGH SINGH ACCT: [id number] UNIT: [id number] : 1955 LOC: ER ROOM / BED: / AGE / SEX: 69 / F ADM STATUS: REG ER SERVICE 1330 ORDERING PHYSICIAN: MEEK HOWE MD PROCEDURE(s): CXRP - CHEST PORTABLE REASON: sob ORDER NUMBER(s): [id number], ACCESSION NUMBER(s): [id number] CLINICAL HISTORY: sob TECHNIQUE: Single view of the chest was obtained. COMPARISON: XY CHEST TWO VIEWS ROUTINE on DOS: 03/29/25, XY CHEST TWO VIEWS ROUTINE on DOS: 07/04/24, XY CHEST TWO VIEWS ROUTINE on DOS: 05/28/24, XY CHEST PORTABLE on DOS: 05/07/24, XY CHEST PORTABLE on DOS: 03/10/24 FINDINGS: The heart size is mildly enlarged with pulmonary vascular congestion. There is no dense consolidation. IMPRESSION: Pulmonary vascular congestion. ATED BY: FINA GOLD MD DICTATED DATE/TIME: 04/02/251414 SIGNED BY: FINA GOLD MD SIGNED DATE/TIME: 04/02/251414 CC: [place] [id number] Ph: [phone] DIAGNOSTIC IMAGING Diagnostic Imaging Report : [id number] Signed PATIENT: ASHLEIGH SINGH ACCT: [id number] UNIT: [id number] : 1955 LOC: ER ROOM / BED: / AGE / SEX: 69 / F ADM STATUS: REG ER SERVICE 43 ORDERING PHYSICIAN: MEEK HOWE MD PROCEDURE(s): HWOCT - HEAD WITHOUT CONTRAST REASON: altered ORDER NUMBER(s): [id number], ACCESSION NUMBER(s): [id number] CLINICAL HISTORY: altered TECHNIQUE: Helical imaging carried out from skull base to vertex without intravenous contrast. This exam was performed according to our departmental dose optimization program. Up-to-date CT equipment and radiation dose reduction techniques are utilized as appropriate. CTDIVol: 29.37 mGy DLP: 553.13 mGy-cm WID: COMPARISON: CT HEAD WITHOUT CONTRAST on DOS: 03/29/25 FINDINGS: The ventricles and subarachnoid spaces are normal in size and configuration. There is no midline shift or mass effect. The guevara white matter interfaces are maintained. The basal cisterns are patent. There is no evidence of acute intracranial hemorrhage or extra-axial fluid collection. The mastoid air cells and visualized paranasal sinuses are well-aerated. IMPRESSION: 1. No acute intracranial abnormality. ATED BY: CHALO SIERRA MD DICTATED DATE/TIME: 04/02/251521 SIGNED BY: CHALO SIERRA MD SIGNED DATE/TIME: 04/02/251521 CC: Time of 1ST Reevaluation: 13:45 Reevaluation 1ST: Unchanged Patient Education/Counseling: Other (patient is altered ) Family Education/Counseling: No Family Present SEPSIS Sepsis Screen Physician Orders PTPTT (04/02/25 13:30) Urinalysis (04/02/25 13:30) Chest Portable (04/02/25 13:30) Accucheck (04/02/25 13:30) Blood Culture (04/02/25 13:30) Cefepime 1gm/50ml (Maxipime 1gm/50ml) (04/02/25 14:00) Notify Md If Map <65 Or Bp<90 (04/02/25 13:30) If Map<65 Start Vasopressor (04/02/25 13:30) Sepsis Reassesment After Fluid (04/02/25 14:30) Sodium Chloride 0.9% (04/02/25 13:30) Electrocardigram (04/02/25 13:39) Insert Wilhelm Catheter QSHIFT (04/02/25 14:42) Head Without Contrast (04/02/25 14:44) Vital Signs Date Time Temp Pulse Resp B/P (MAP) Pulse Ox O2 Delivery O2 Flow Rate FiO2 04/02/25 13:28 95 04/02/25 13:00 98.8 90 22 141/74 99 98.8 Laboratory Tests Test 04/02/25 14:09 04/02/25 14:31 White Blood Count 10.2 10^3/uL (4.4-10.8) # Lactic Acid Level 1.7 mmol/L (0.4-2.0) Medications Medications Dose Ordered Sig/Maggie Route Start Time Stop Time Status Last Admin Dose Admin Cefepime HCl 50 ml @ 12.5 mls/hr Q8HR IV 04/02/25 14:00 04/02/25 14:00 Sodium Chloride 1,000 ml @ 150 mls/hr Q6H40M ONCE IV 04/02/25 13:30 04/02/25 20:09 04/02/25 13:30 Sodium Chloride 1,000 ml @ 1,000 mls/hr Q1H ONCE IV 04/02/25 13:30 04/02/25 14:29 DC 04/02/25 13:30 Departure 1 Departure Time of Disposition: 14:41 Impression: Primary Impression: Metabolic encephalopathy Disposition: 09 ADMITTED INPATIENT Admit to: Med Surg Condition: Guarded Critical Care Note Critical Care Time?: Yes (90 min-critical care time only) Stability Stability form required: No Heart Score Heart Score: Heart Score Response (Comments) Value History N/A 0 EKG N/A 0 Age N/A 0 Risk Factors N/A 0 Troponin N/A 0 Total 0 I personally scribed for MEEK HOWE MD ([email or web address]) on 04/02/25 at 13:47. Electronically submitted by Lizzie Lundberg ([facility]). I personally scribed for MEEK HOWE MD ([email or web address]) on 04/02/25 at 15:53. Electronically submitted by Lizzie Lundberg ([facility]). MEEK HOWE MD Apr 02, 2025 13:47
[2025-04-02] MEDS: CEFEPIME 1GM/50ML 50 ML IV SCH (14:00)
[2025-04-02 14:22] LABS: Hematocrit 38.5 % (36.0-46.0); Hemoglobin 12.6 g/dL (12.2-16.2); Mean Corpuscular Hemoglobin 28.9 pg (28.0-32.0); Mean Corpuscular Volume 88.6 fL (80.0-100.0); Nucleated Red Blood Cells % 0.1 %
[2025-04-02 14:31] LABS: Alanine Aminotransferase 17 U/L (7-40); Alkaline Phosphatase 90 U/L (46-116); Anion Gap 15 (5-15); BUN/Creatinine Ratio 18.4 (10.0-20.0); Calcium 9.5 mg/dL (8.7-10.4); Carbon Dioxide 21 mmol/L (20-31); Potassium 3.6 mmol/L (3.5-5.1); Sodium 144 mmol/L (136-145); Total Protein 7.4 g/dL (5.7-8.2)
[2025-04-02 14:32] LABS: Albumin 4.3 g/dL (3.2-4.8)
[2025-04-02 14:35] LABS: Bilirubin, Total 0.3 mg/dL (0.2-1.0); Blood Urea Nitrogen 29 mg/dL (9-23); Chloride 108 mmol/L (98-107); Glucose 296 mg/dL (74-106)
--- NOTE | 2025-04-02 15:07 | DVH ---
CLINICAL HISTORY: sob TECHNIQUE: Single view of the chest was obtained. COMPARISON: XY CHEST TWO VIEWS ROUTINE on DOS: 03/29/25, XY CHEST TWO VIEWS ROUTINE on DOS: 07/04/24, XY CHEST TWO VIEWS ROUTINE on DOS: 05/28/24, XY CHEST PORTABLE on DOS: 05/07/24, XY CHEST PORTABLE on DOS: 03/10/24 FINDINGS: The heart size is mildly enlarged with pulmonary vascular congestion. There is no dense consolidation . IMPRESSION: Pulmonary vascular congestion.
--- NOTE | 2025-04-02 15:24 | DVH ---
CLINICAL HISTORY: altered TECHNIQUE: Helical imaging carried out from skull base to vertex without intravenous contrast. This e xam was performed according to our departmental dose optimization program. Up-to-date CT equipment an d radiation dose reduction techniques are utilized as appropriate. CTDIVol: 29.37 mGy DLP: 553.13 mGy-cm WID: COMPARISON: CT HEAD WITHOUT CONTRAST on DOS: 03/29/25 FINDINGS: The ventricles and subarachnoid spaces are normal in size and configuration. There is no midline amie ft or mass effect. The guevara white matter interfaces are maintained. The basal cisterns are patent. Th ere is no evidence of acute intracranial hemorrhage or extra-axial fluid collection. The mastoid air cells and visualized paranasal sinuses are well-aerated. IMPRESSION: 1. No acute intracranial abnormality.
[2025-04-02] MEDS: CLINDAMYCIN 600MG IV 50 ML IV ONE (16:00)
[2025-04-02 16:44] LABS: INR 1.05 (0.9-1.15); Partial Thromboplastin Time 24.3 SEC (24.5-34.5); Prothrombin Time 11.1 sec (9.3-11.8)
[2025-04-02 17:38] LABS: Urine Protein, UAD Negative (Negative)
[2025-04-02] MEDS: ONDANSETRON HCL 4 MG/2 ML VIAL IV ONE (18:35)
[2025-04-02] MEDS ORDERED: DOCUSATE SOD 100 MG CAP PO PRN (20:45)
[2025-04-02] MEDS ORDERED: DEXTROSE (50%) 50ML SYRG IV PRN (20:45)
--- NOTE | 2025-04-02 22:04 | DVHHP2 ---
History of Present Illness Reason for Visit: Metabolic encephalopathy History of Present Illness The patient is a 69-year-old female with multiple past medical history including asthma, anxiety, CKF, CHF, depression, diabetes mellitus, and hypertension who presented to [facility] for evaluation of altered mental status. As reported by EMS, patient lives in a boarding care facility where she was being assisted to the toilet and that is when she became spontaneously confused. Patient has been seen at this facility for similar confusion that is accompanied by essential tremors. The patient was seen and evaluated in the ED, laboratory data shows WBC 10.2, platelets 279, sodium 144, potassium 3.6, BUN 29, creatinine 1.58, glucose 296, calcium 9.5, blood pressure 141/74, heart rate 95, temperature 98.8 F, O2 saturation 99% on room air. Chest x-ray revealing pulmonary vascular congestion. Please see medication orders section in the compu ter. On my assessment, patient denied chest pain, no headache, dizziness, shortness of breaths, diaphoresis, no diarrhea, nausea, vomiting, fever, no chills. Patient was admitted for further evaluation and medical management. Past Medical History Anemia, Anxiety, Asthma, CHF, CKF, Depression, DM, Gout, High Lipids, HTN, TIA Past Surgical History , PTCA Family History Reviewed, noncontributory to the management of this case. Past Social History The patient lives at home, denies smoking, alcohol or illicit drugs abuse. Review of Systems Constitutional: Yes: Weakness; No: Fever, Chills, Sweats, Malaise, Other Eyes: No: Pain, Vision change, Conjunctivae inflammation, Eyelid inflammation, Other, Redness ENT: No: Ear pain, Ear discharge, Nose pain, Nose discharge, Nose congestion, Mouth pain, Mouth swelling, Throat pain, Throat swelling, Other Respiratory: No: Cough, Dry, Shortness of breath, SOB with excertion, Wheezing, Hemoptysis, Pleuritic Pain, Sputum, Wheezing, Other Cardiovascular: No: Chest Pain, Palpitations, Orthopnea, Paroxysmal Noc. Dyspnea, Edema, Lt Headedness, Other Gastrointestinal: No: Nausea, Vomiting, Abdominal Pain, Diarrhea, Constipation, Melena, Hematochezia, Other Genitourinary: No Dysuria, No Frequency, No Incontinence, No Hematuria, No Retention, No Other Musculoskeletal: No: other, neck pain, shoulder pain, arm pain, back pain, hand pain, leg pain, foot pain Skin: No: Rash, Lesions, Jaundice, Bruising, Other Neurological: Other (Altered level of consciousness); No: Weakness, Numbness, Incoordination, Change in speech, Confusion, Seizures Allergies: Coded Allergies: Egg-derived Products (Unverified Allergy, Severe, 01/28/23) NSAIDs (Unverified Allergy, Severe, 01/28/23) Oxycodone (Unverified Allergy, Severe, 01/28/23) Banana (Unverified Allergy, Intermediate, 01/28/23) Garlic (Unverified Allergy, Intermediate, 01/28/23) Oatmeal (Unverified Allergy, Intermediate, 01/28/23) Albuterol (Verified Allergy, Unknown, 05/22/24) Aspirin (Verified Allergy, Unknown, wheezing, 05/22/24) Caffeine (Verified Allergy, Unknown, 05/22/24) Chondroitin Sulfate A (Verified Allergy, Unknown, HIVES, 05/22/24) Cromolyn (Verified Allergy, Unknown, 05/22/24) Donepezil (Unverified Allergy, Unknown, 02/26/23) Epinephrine (Verified Allergy, Unknown, trouble breathing, 05/22/24) Erythromycin (Verified Allergy, Unknown, 05/22/24) Insulin Glargine (Verified Allergy, Unknown, 05/22/24) Levetiracetam (Unverified Allergy, Unknown, 02/26/23) Neomycin (Verified Allergy, Unknown, 05/22/24) Onion (Verified Allergy, Unknown, 05/22/24) Penicillins (Verified Allergy, Unknown, yeast infection, 05/22/24) Polymyxin B (Verified Allergy, Unknown, 05/22/24) Prednisone (Verified Allergy, Unknown, 05/22/24) Pseudoephedrine (Verified Allergy, Unknown, HIVES, 05/22/24) Regadenoson (Verified Allergy, Unknown, ANGINA, 05/22/24) Soybean Oil (Verified Allergy, Unknown, 07/05/24) Soybean Phosphatides (Verified Allergy, Unknown, 07/05/24) Soybean-containing Drug Products (Verified Allergy, Unknown, 07/05/24) Sulfa Antibiotics (Verified Allergy, Unknown, hives, 05/22/24) Theophylline (Verified Allergy, Unknown, 05/22/24) Triprolidine (Verified Allergy, Unknown, HIVES, 05/22/24) Codeine (Verified Adverse Reaction, Unknown, SOB, 05/22/24) Ibuprofen (Verified Adverse Reaction, Unknown, WHEEZING, 05/22/24) Lidocaine (Verified Adverse Reaction, Unknown, NV, 05/22/24) Uncoded Allergies: CHICKEN (Allergy, Severe, 01/28/23) DAIRY (Allergy, Severe, 01/28/23) LEAFY GREENS (Allergy, Severe, 01/28/23) PORK (Allergy, Severe, 01/28/23) BEEF (Allergy, Intermediate, 01/28/23) WHEAT FLOUR (Allergy, Intermediate, 01/28/23) WHOLE GRAIN (Allergy, Intermediate, 01/28/23) garlic (Allergy, Mild, 11/07/22) red meat (Allergy, Mild, nausea/ vomiting, 11/07/22) whole grains (Allergy, Mild, 11/07/22) CHONDROITION (Allergy, Unknown, HIVES SOB, 04/20/17) EGGS (Allergy, Unknown, 08/15/22) SALICYLATE (Allergy, Unknown, NV, 04/20/17) LETTUCE (Adverse Reaction, Intermediate, 01/28/23) TOMATOES (Adverse Reaction, Intermediate, 01/28/23) potato (Adverse Reaction, Intermediate, 04/20/24) per patient when she eats potatoes all of her joints swell and become painful STEROIDS (Adverse Reaction, Unknown, SOB, 04/20/17) Medications Current Medications Medications Dose Ordered Sig/Maggie Route Start Time Stop Time Status Last Admin Dose Admin Cefepime HCl 50 ml @ 12.5 mls/hr Q8HR IV 04/02/25 14:00 04/02/25 14:00 12.5 MLS/HR Diagnostic Test (Pha) 1 strip IQ4HR 04/03/25 00:00 Insulin Human Regular IQ4HR SC 04/03/25 00:00 Dextrose 50 ml UD PRN IV 04/02/25 20:45 Sodium Chloride 10 ml Q8HR IV 04/02/25 22:00 Ondansetron HCl 4 mg Q4HP PRN IV 04/02/25 20:45 Docusate Sodium 100 mg BIDPRN PRN PO 04/02/25 20:45 Acetaminophen 650 mg Q6HP PRN PO 04/02/25 20:45 Famotidine 20 mg DAILY IV 04/03/25 10:00 Exam Vital Signs Vital Signs Date Time Temp Pulse Resp B/P (MAP) Pulse Ox O2 Delivery O2 Flow Rate FiO2 04/02/25 13:28 95 04/02/25 13:00 98.8 22 141/74 99 98.8 General Appearance: Alert, Oriented X3, Cooperative, No acute distress HEENT: Atraumatic, PERRLA, EOMI, Mucous membr. moist/pink Respiratory: Normal air movement Cardiovascular: Regular rate, Normal S1, Normal S2, No murmurs Abdominal: Normal bowel sounds, Soft, No tenderness, No hepatospenomegaly, No masses Extremities: No clubbing, No cyanosis, No edema, Normal pulses, No tenderness/swelling Skin: No rashes, No significant lesion Neuro: Strength at 5/5 X4 ext, Normal tone, Sensation intact, Cranial nerves 3- 12 NL, Reflexes 2+, Other (Generalized weakness) Psych/Mental Status: Mental status NL, Mood NL Labs/Xrays Labs Test 04/02/25 17:00 04/02/25 16:08 04/02/25 14:31 04/02/25 14:09 Range/Units Urine Color Light-yellow Yellow Urine Clarity Clear Clear Urine pH 6.0 5.0-9.0 Urine Specific [place] 1.012 1.001-1.035 Urine Protein Negative Negative Urine Ketones Negative Negative Urine Blood Negative Negative /uL Urine Nitrite Negative Negative Urine Bilirubin Negative Negative Urine Urobilinogen Normal Negative mg/dL Urine Leukocyte Esterase Negative Negative /uL Urine RBC <1 0 - 4 /hpf Urine Microscopic WBC < 1 0-5 /HPF Urine Squamous Epithelial Cells None seen <5 /hpf Urine Bacteria None seen None Seen /hpf Urine Glucose 4+ H Normal mg/dL Prothrombin Time 11.1 9.3-11.8 sec Prothrombin Time INR 1.05 0.9-1.15 Activated Partial Thromboplast Time 24.3 L 24.5-34.5 SEC Lactic Acid Level 1.7 0.4-2.0 mmol/L White Blood Count 10.2 # 4.4-10.8 10^3/uL Red Blood Count 4.35 4.0-5.20 10^6/uL Hemoglobin 12.6 12.2-16.2 g/dL Hematocrit 38.5 36.0-46.0 % Mean Corpuscular Volume 88.6 80.0-100.0 fL Mean Corpuscular Hemoglobin 28.9 28.0-32.0 pg Mean Corpuscular Hemoglobin Concent 32.6 32.0-36.0 g/dL Red Cell Distribution Width 13.9 11.8-14.3 % Platelet Count 279 140-450 10^3/uL Mean Platelet Volume 8.2 6.9-10.8 fL Neutrophils (%) (Auto) 82.0 H 37.0-80.0 % Lymphocytes (%) (Auto) 12.0 10.0-50.0 % Monocytes (%) (Auto) 5.1 0.0-12.0 % Eosinophils (%) (Auto) 0.6 0.0-7.0 % Basophils (%) (Auto) 0.3 0.0-2.0 % Neutrophils # (Auto) 8.3 1.6-8.6 10 ^3/uL Lymphocytes # (Auto) 1.2 0.4-5.4 10 ^3/uL Monocytes # (Auto) 0.5 0-1.3 10 ^3/uL Eosinophils # (Auto) 0.1 0-0.8 10 ^3/uL Basophils # (Auto) 0 0-0.2 10 ^3/uL Nucleated Red Blood Cells 0.1 % Sodium Level 144 # 136-145 mmol/L Potassium Level 3.6 3.5-5.1 mmol/L Chloride Level 108 H 98-107 mmol/L Carbon Dioxide Level 21 20-31 mmol/L Anion Gap 15 5-15 Blood Urea Nitrogen 29 H 9-23 mg/dL Creatinine 1.58 H 0.550-1.02 mg/dL Glomerular Filtration Rate Calc 35 >90 mL/min BUN/Creatinine Ratio 18.4 10.0-20.0 Serum Glucose 296 H 74-106 mg/dL Calcium Level 9.5 8.7-10.4 mg/dL Total Bilirubin 0.3 0.2-1.0 mg/dL Aspartate Amino Transferase (AST) 23 13-40 U/L Alanine Aminotransferase (ALT) 17 7-40 U/L Alkaline Phosphatase 90 46-116 U/L Total Protein 7.4 5.7-8.2 g/dL Albumin 4.3 3.2-4.8 g/dL PATIENT: ASHLEIGH SINGH ACCT: [id number] UNIT: [id number] : 1955 LOC: ER ROOM / BED: / AGE / SEX: 69 / F ADM STATUS: REG ER SERVICE 1330 ORDERING PHYSICIAN: MEEK HOWE MD PROCEDURE(s): CXRP - CHEST PORTABLE REASON: sob ORDER NUMBER(s): [id number], ACCESSION NUMBER(s): [id number] CLINICAL HISTORY: sob TECHNIQUE: Single view of the chest was obtained. COMPARISON: XY CHEST TWO VIEWS ROUTINE on DOS: 03/29/25, XY CHEST TWO VIEWS ROUTINE on DOS: 07/04/24, XY CHEST TWO VIEWS ROUTINE on DOS: 05/28/24, XY CHEST PORTABLE on DOS: 05/07/24, XY CHEST PORTABLE on DOS: 03/10/24 FINDINGS: The heart size is mildly enlarged with pulmonary vascular congestion. There is no dense consolidation. IMPRESSION: Pulmonary vascular congestion. ORDERING PHYSICIAN: MEEK HOWE MD PROCEDURE(s): HWOCT - HEAD WITHOUT CONTRAST REASON: altered ORDER NUMBER(s): [id number], ACCESSION NUMBER(s): [id number] CLINICAL HISTORY: altered TECHNIQUE: Helical imaging carried out from skull base to vertex without intravenous contrast. This exam was performed according to our departmental dose optimization program. Up-to-date CT equipment and radiation dose reduction techniques are utilized as appropriate. CTDIVol: 29.37 mGy DLP: 553.13 mGy-cm WID: COMPARISON: CT HEAD WITHOUT CONTRAST on DOS: 03/29/25 FINDINGS: The ventricles and subarachnoid spaces are normal in size and configuration. There is no midline shift or mass effect. The guevara white matter interfaces are maintained. The basal cisterns are patent. There is no evidence of acute intracranial hemorrhage or extra-axial fluid collection. The mastoid air cells and visualized paranasal sinuses are well-aerated. IMPRESSION: 1. No acute intracranial abnormality. SEPSIS Sepsis Screen Date sepsis recognized/suspect: Apr 02, 2025 Time Sepsis recognized/suspect: 1300 Recent Procedure: No On Antibiotic Therapy: No Respiratory Rate >20: Yes Heart Rate >90: No Temp<36 C (96.8 F) or >38.3 C: No SBP <90 or MAP <65 mmHG: No New Acute Mental Status Change: No Is the patient on CPAP, BIPAP,: No Physician Orders Insert Wilhelm Catheter QSHIFT (04/02/25 14:42) Head Without Contrast (04/02/25 14:44) Consistent Carb(Ccho)Diabetes (04/03/25 Breakfast) Glucose Blood (Accu-Chek Comfort Curve T (04/03/25 00:00) Insulin R (Human) (Insulin R) (04/03/25 00:00) Dextrose 50% Syringe (04/02/25 20:45) Allergies (04/02/25 20:39) Code Status (04/02/25 20:39) Sodium Chloride Lock (Saline Lock Ns) (04/02/25 22:00) Oxygen Per Hour (04/02/25 20:39) Ondansetron Hcl (Zofran) (04/02/25 20:45) Docusate Sodium Capsule (Colace Capsule) (04/02/25 20:45) Fall Risk Precautions In Place QSHIFT (04/02/25 20:39) Complete Blood Count (04/03/25 04:00) Comprehensive Metabolic Panel (04/03/25 04:00) Condition: Serious (04/02/25 20:39) Acetaminophen Tablet (Tylenol Tablet) (04/02/25 20:45) Maintain Bed Rest (04/02/25 20:39) Sequential Compression Device (04/02/25 ) Famotidine Injection (Pepcid Injection) (04/03/25 10:00) Admit (04/02/25 22:03) Nitroglycerin Sublingual (Ntrostat Subli (04/02/25 22:15) Stat Ekg For Chest Pain (04/02/25 22:03) Notify Of Changes From Base (04/02/25 22:03) Hose Finisher For 24 Hours (04/02/25 22:03) Emergency Dysrhythmia Protocol (04/02/25 22:03) Rhythm Strips Once Every Shift (04/02/25 22:03) Oxygen By Nasal Cannula (04/02/25 22:03) Laboratory Tests Test 04/02/25 14:09 04/02/25 14:31 White Blood Count 10.2 10^3/uL (4.4-10.8) # Lactic Acid Level 1.7 mmol/L (0.4-2.0) Medications Medications Dose Ordered Sig/Maggie Route Start Time Stop Time Status Last Admin Dose Admin Cefepime HCl 50 ml @ 12.5 mls/hr Q8HR IV 04/02/25 14:00 04/02/25 14:00 12.5 MLS/HR Clindamycin Phosphate 50 ml @ 50 mls/hr ONCE ONCE IV 04/02/25 13:30 04/02/25 14:29 DC 04/02/25 16:00 50 MLS/HR Ondansetron HCl 4 mg ONCE ONCE IV 04/02/25 18:15 04/02/25 18:30 DC 04/02/25 18:35 4 MG Sodium Chloride 1,000 ml @ 150 mls/hr Q6H40M ONCE IV 04/02/25 13:30 04/02/25 20:09 DC 04/02/25 13:30 150 MLS/HR Sodium Chloride 1,000 ml @ 1,000 mls/hr Q1H ONCE IV 04/02/25 13:30 04/02/25 14:29 DC 04/02/25 13:30 1,000 MLS/HR Assessment/Plan Assessment/Plan Metabolic encephalopathy Acute renal injury Generalized weakness Diabetes mellitus with hyperglycemia Plan 1. Admit to telemetry unit 2. Breathing treatment 3. Pain control management 4. Management of fluids and electrolytes 5. Consultation for hospitalist 6. Diagnostic tests head CT 7. DVT prophylaxis-on SCDs 8. Repeat labs CBC, CMP in a.m. 9. Continue with current medical management 10. Treatment plan discussed with patient and RN. Patient verbalized unde rstanding. Plan discussed with: Patient, Other (RN) My Orders Orders - CHARISSE HOUSE DNP Procedure Category Date Status Time Consistent DIET 04/03/25 Transmitted Carb(Ccho)Diabetes Breakfast Glucose Blood PHA 04/03/25 In Process (Accu-Chek Comfort 00:00 Insulin R (Human) PHA 04/03/25 In Process (Insulin R) 00:00 Dextrose 50% Syringe PHA 04/02/25 In Process 20:45 Allergies RAINE 04/02/25 In Process 20:39 Code Status CODE 04/02/25 Transmitted 20:39 Sodium Chloride Lock PHA 04/02/25 In Process (Saline Lock Ns) 22:00 Oxygen Per Hour RT 04/02/25 Transmitted 20:39 Ondansetron Hcl PHA 04/02/25 In Process (Zofran) 20:45 Docusate Sodium PHA 04/02/25 In Process Capsule (Colace 20:45 Fall Risk Precautions RAINE 04/02/[address] 20:39 Complete Blood Count LAB 04/03/25 Verified 04:00 Comprehensive LAB 04/03/25 Verified Metabolic Panel 04:00 Condition: Serious RAINE 04/02/25 In Process 20:39 Acetaminophen Tablet PHA 04/02/25 In Process (Tylenol Tablet) 20:45 Maintain Bed Rest RAINE 04/02/25 In Process 20:39 Sequential RAINE 04/02/25 In Process Compression Device Famotidine Injection PHA 04/03/25 In Process (Pepcid Injection) 10:00 Admit ADMIT 04/02/25 Verified 22:03 Nitroglycerin [facility] 04/02/25 Verified Sublingual (Ntrostat 22:15 Stat Ekg For Chest RAINE 04/02/25 Verified Pain 22:03 Notify Md Of Changes [facility] 04/02/25 Verified From Base 22:03 Hose Finisher For [facility] 04/02/25 Verified 24 Hours 22:03 Emergency Dysrhythmia [facility] 04/02/25 Verified Protocol 22:03 Rhythm Strips Once [facility] 04/02/25 Verified Every Shift 22:03 Oxygen By Nasal RT 04/02/25 Verified Cannula 22:03 Problem List: (1) Metabolic encephalopathy (2) Acute renal injury (3) Generalized weakness (4) Diabetes mellitus with hyperglycemia Date of Service: Apr 02, 2025 Billing Provider: CHARISSE HOUSE DNP Common Visit Codes: [id number] INP/OBS CARE (HIGH) CHARISSE HOUSE DNP Apr 02, 2025 22:04
[2025-04-02] MEDS ORDERED: NITROGLYCERIN 0.4 MG SL TAB SL PRN (22:15)
[2025-04-03] MEDS: ACCU-CHEK COMFORT CURVE STRIP VI SCH
[2025-04-03] MEDS: InsuLIN REG 1unit/0.01ml Soln (100units/ml) SC SCH
--- NOTE | 2025-04-03 03:00 | ECG ---
[facility] Test Date: 2025-04-02 Test Time: 13:28:38 Pat Name: ASHLEIGH SINGH Department: [facility] ED Room: [address] [place] [address] A Gender: F Slipman: NOMAN : 1955 Requested By: MEEK HOWE Order Number: [id number] Reading MD: Masood Pope Measurements Intervals [place] Rate: 95 P: 0 MO: 136 QRS: -63 QRSD: 166 T: 88 QT: 432 QTc: 543 Interpretive Statements Sinus rhythm Nonspecific IVCD with LAD Left ventricular hypertrophy Anterior infarct, old Electronically Signed On 04-03-2025 18:49:15 PDT by Masood Pope Please click the below link to view image of tracing.
[2025-04-03] MEDS: SODIUM CHLOR 0.9% PF (SALINE LOCK) 10ML VIAL/SYR IV SCH (03:04)
[2025-04-03] MEDS: ACETAMINOPHEN 325 MG TAB PO PRN (04:16)
[2025-04-03 06:06] LABS: Hematocrit 32.1 % (36.0-46.0); Hemoglobin 10.7 g/dL (12.2-16.2); Mean Corpuscular Hemoglobin 29.2 pg (28.0-32.0); Mean Corpuscular Volume 87.3 fL (80.0-100.0); Nucleated Red Blood Cells % 0.1 %
[2025-04-03 06:15] LABS: Alanine Aminotransferase 18 U/L (7-40); Albumin 4.0 g/dL (3.2-4.8); Alkaline Phosphatase 79 U/L (46-116); Anion Gap 12 (5-15); BUN/Creatinine Ratio 23.6 (10.0-20.0); Bilirubin, Total 0.2 mg/dL (0.2-1.0); Blood Urea Nitrogen 34 mg/dL (9-23); Calcium 9.3 mg/dL (8.7-10.4); Carbon Dioxide 23 mmol/L (20-31); Chloride 108 mmol/L (98-107); Glucose 229 mg/dL (74-106); Potassium 3.6 mmol/L (3.5-5.1); Sodium 143 mmol/L (136-145); Total Protein 6.5 g/dL (5.7-8.2)
[2025-04-03 08:00] VITALS: PULSE 80; RESP 12; O2SAT 100
--- NOTE | 2025-04-03 09:31 | DVHPN2 ---
Subjective Continues to complain of generalized pain and generalized weakness Reviewed: Care Plan, H&P, Labs, Medications, Previous Orders, Radiology Changes from previous H/P or p: No Changes Objective Vitals Vital Signs Date Time Temp Pulse Resp B/P (MAP) Pulse Ox O2 Delivery O2 Flow Rate FiO2 04/03/25 06:00 78 13 150/67 (94) 100 04/03/25 04:05 Nasal Cannula* 2 28 04/03/25 04:05 97.4 97.4 Intake/Output Intake and Output 04/03/25 07:00 Intake Total 0 ml Output Total 2000 ml Balance -2000 ml Intake Oral 0 ml Output Urine Total 2000 ml Other 0 ml General Appearance: Alert, Oriented X3, Cooperative, mild distress HEENT: Atraumatic Lungs: Other (Decreased air entry bilateral; no added sounds) Cardiovascular: Regular rate, Normal S1, Normal S2 Abdomen: Normal bowel sounds, Soft, No tenderness Neuro: Normal speech, Cranial nerves 3-12 NL Skin: Bruising, Other (Scratches) Psych/Mental Status: Mental status NL, Mood NL Medications Current Medications Medications Dose Ordered Sig/Maggie Route Start Time Stop Time Status Last Admin Dose Admin Cefepime HCl 50 ml @ 12.5 mls/hr Q8HR IV 04/02/25 14:00 04/03/25 07:43 12.5 MLS/HR Diagnostic Test (Pha) 1 strip IQ4HR 04/03/25 00:00 04/03/25 04:17 1 STRIP Insulin Human Regular IQ4HR SC 04/03/25 00:00 04/03/25 04:17 9 UNITS Dextrose 50 ml UD PRN IV 04/02/25 20:45 Sodium Chloride 10 ml Q8HR IV 04/02/25 22:00 04/03/25 06:00 10 ML Ondansetron HCl 4 mg Q4HP PRN IV 04/02/25 20:45 Docusate Sodium 100 mg BIDPRN PRN PO 04/02/25 20:45 Acetaminophen 650 mg Q6HP PRN PO 04/02/25 20:45 04/03/25 04:16 650 MG Famotidine 20 mg DAILY IV 04/03/25 10:00 Nitroglycerin 0.4 mg Q5MINP PRN SL 04/02/25 22:15 Laboratory Results Laboratory Tests 04/03/25 05:39 Chemistry Test 04/02/25 14:09 04/03/25 05:39 Albumin 4.3 g/dL (3.2-4.8) 4.0 g/dL (3.2-4.8) Calcium Level 9.5 mg/dL (8.7-10.4) 9.3 mg/dL (8.7-10.4) Total Protein 7.4 g/dL (5.7-8.2) 6.5 g/dL (5.7-8.2) Coagulation Test 04/02/25 16:08 Prothrombin Time 11.1 sec (9.3-11.8) Prothrombin Time INR 1.05 (0.9-1.15) Activated Partial Thromboplast Time 24.3 SEC (24.5-34.5) L LFT Test 04/02/25 14:09 04/03/25 05:39 Alanine Aminotransferase (ALT) 17 U/L (7-40) 18 U/L (7-40) Alkaline Phosphatase 90 U/L (46-116) 79 U/L (46-116) Aspartate Amino Transferase (AST) 23 U/L (13-40) 25 U/L (13-40) Total Bilirubin 0.3 mg/dL (0.2-1.0) 0.2 mg/dL (0.2-1.0) Urinalysis Test 04/02/25 17:00 Urine Color Light-yellow (Yellow) Urine Clarity Clear (Clear) Urine pH 6.0 (5.0-9.0) Urine Specific [place] 1.012 (1.001-1.035) Urine Protein Negative (Negative) Urine Ketones Negative (Negative) Urine Blood Negative /uL (Negative) Urine Nitrite Negative (Negative) Urine Bilirubin Negative (Negative) Urine Urobilinogen Normal mg/dL (Negative) Urine Leukocyte Esterase Negative /uL (Negative) Urine RBC <1 /hpf (0 - 4) Urine Microscopic WBC < 1 /HPF (0-5) Urine Squamous Epithelial Cells None seen /hpf (<5) Urine Bacteria None seen /hpf (None Seen) Urine Glucose 4+ mg/dL (Normal) H Labs and/or images reviewed: Labs reviewed by me, Image(s) reviewed by me Assessment/Plan Assessment/Plan A 69-year-old female patient; with multiple comorbidities; who presented to the emergency department after a fall. Acute metabolic/toxic/hypoxic encephalopathy due to suspected sepsis ARVIN on CKD stage IV; most likely vasomotor nephropathy Suspected sepsis with unknown source Severe COPD on home oxygen therapy Hypertensive heart and kidney disease with chronic diastolic and systolic heart failure, and with a chronic kidney disease stage IV Diabetes mellitus type 2 Dizziness; multifactorial Recurrent falls with injuries including bruising and scratches Generalized weakness with generalized pain Anxiety and depression; no suicide ideation/plan Chronic pancreatic insufficiency Obesity Reviewed available lab work and imaging studies Continue IV antibiotics for now Resumed home Creon Fall precautions Wound care consulted Continue IV antibiotics for now Physical therapy consulted Bike Shop Manager consulted Avoid nephrotoxic agents Continue oxygen therapy as indicated Continue antihypertensive medications and adjust according to blood pressure monitoring Continue insulin management and adjust according to blood glucose monitoring Resumed home psychiatric medications Continue pain management as indicated Continue monitoring Goals of care discussed with the patient and her daughter for 22 minutes; DNR/DNI; still deciding regarding comfort measures Late Entry. This medical document was created using an electronic medical record system with computerized dictation system. Although this document has been carefully reviewed, there might still be some phonetic and typographical errors. These areas are purely typographical due to imperfections of the software programs, and do not reflect any compromise in the patient's medical care. Plan discussed with: Patient, Daughter, Other (Nurse) Date of Service: Apr 03, 2025 Billing Provider: SHAUNA WALTER MD Common Visit Codes: [id number] INP/OBS CARE(HIGH) Secondary Visit Codes: [id number] CARE PLAN 30 MINUTES (22 minutes) SHAUNA WALTER MD Apr 03, 2025 09:31
[2025-04-03] MEDS ORDERED: ACETAMINOPHEN 325 MG TAB PO PRN (10:00)
[2025-04-03] MEDS ORDERED: PATIENTS OWN MEDICATION PO SCH (11:30)
[2025-04-03] MEDS: FAMOTIDINE (10MG/ML) 2ML VL IV SCH (12:18)
[2025-04-03] MEDS: LORazepam 2MG/ML-1ML VIAL IV PRN (12:35)
[2025-04-03] MEDS ORDERED: [UNRECOGNIZED DRUG - OTHER] PO SCH (17:00)
[2025-04-03 23:15] VITALS: BP 140/75; PULSE 87; RESP 19; TEMP 98.7; O2SAT 99
[2025-04-04] VITALS (10 sets, daily range): BP systolic 134–146; BP diastolic 59–75; PULSE 68–90; RESP 12–19; TEMP 97.5–98.9; O2SAT 98–100
[2025-04-04 06:10] LABS: Hematocrit 34.5 % (36.0-46.0); Hemoglobin 11.6 g/dL (12.2-16.2); Mean Corpuscular Hemoglobin 28.8 pg (28.0-32.0); Mean Corpuscular Volume 85.9 fL (80.0-100.0); Nucleated Red Blood Cells % 0.2 %
[2025-04-04 06:34] LABS: Sodium 142 mmol/L (136-145)
[2025-04-04 06:35] LABS: Anion Gap 11 (5-15); Calcium 9.5 mg/dL (8.7-10.4); Carbon Dioxide 24 mmol/L (20-31)
[2025-04-04 06:39] LABS: Chloride 107 mmol/L (98-107); Potassium 3.3 mmol/L (3.5-5.1)
[2025-04-04 06:40] LABS: BUN/Creatinine Ratio 16.1 (10.0-20.0); Blood Urea Nitrogen 20 mg/dL (9-23)
[2025-04-04 07:42] LABS: Glucose 124 mg/dL (74-106)
[2025-04-04] MEDS: [UNRECOGNIZED DRUG - OTHER] PO SCH (11:43)
--- NOTE | 2025-04-04 11:44 | DVHPN2 ---
Subjective Continues to complain of generalized pain and generalized weakness Reviewed: Care Plan, H&P, Labs, Medications, Previous Orders, Radiology Changes from previous H/P or p: No Changes Objective Vitals Vital Signs Date Time Temp Pulse Resp B/P (MAP) Pulse Ox O2 Delivery O2 Flow Rate FiO2 04/04/25 05:00 98.9 74 18 136/71 (92) 99 98.9 04/04/25 00:19 Nasal Cannula* 2 28 Intake/Output Intake and Output 04/04/25 07:00 Intake Total 750.0 ml Output Total 1625 ml Balance -875.0 ml Intake Oral 700 ml IV Total 50.0 ml Output Urine Total 1625 ml # Bowel Movements 1 General Appearance: Alert, Oriented X3, Cooperative, mild distress HEENT: Atraumatic Lungs: Other (Decreased air entry bilateral; no added sounds) Cardiovascular: Regular rate, Normal S1, Normal S2 Abdomen: Normal bowel sounds, Soft, No tenderness Neuro: Normal speech, Cranial nerves 3-12 NL Skin: Bruising, Other (Scratches) Psych/Mental Status: Mental status NL, Mood NL Medications Current Medications Medications Dose Ordered Sig/Maggie Route Start Time Stop Time Status Last Admin Dose Admin Cefepime HCl 50 ml @ 12.5 mls/hr Q8HR IV 04/02/25 14:00 04/04/25 05:57 12.5 MLS/HR Diagnostic Test (Pha) 1 strip IQ4HR 04/03/25 00:00 04/04/25 08:00 1 STRIP Insulin Human Regular IQ4HR SC 04/03/25 00:00 04/04/25 08:00 2 UNITS Dextrose 50 ml UD PRN IV 04/02/25 20:45 Sodium Chloride 10 ml Q8HR IV 04/02/25 22:00 04/04/25 05:57 10 ML Ondansetron HCl 4 mg Q4HP PRN IV 04/02/25 20:45 Docusate Sodium 100 mg BIDPRN PRN PO 04/02/25 20:45 Famotidine 20 mg DAILY IV 04/03/25 10:00 04/04/25 09:58 20 MG Nitroglycerin 0.4 mg Q5MINP PRN SL 04/02/25 22:15 Acetaminophen 1,000 mg Q6HP PRN PO 04/03/25 10:00 Patient Own Medication 2 ACHS PO 04/03/25 11:30 UNV Lorazepam 1 mg Q4HPRN PRN IV 04/03/25 11:45 04/03/25 21:18 1 MG Patient Own Medication 2 AC PO 04/04/25 11:30 Tramadol HCl 50 mg Q6HP PRN PO 04/04/25 11:15 UNV Laboratory Results Laboratory Tests 04/04/25 05:26 Chemistry Test 04/04/25 05:26 Calcium Level 9.5 mg/dL (8.7-10.4) Urinalysis Test 04/02/25 17:00 Urine Color Light-yellow (Yellow) Urine Clarity Clear (Clear) Urine pH 6.0 (5.0-9.0) Urine Specific [place] 1.012 (1.001-1.035) Urine Protein Negative (Negative) Urine Ketones Negative (Negative) Urine Blood Negative /uL (Negative) Urine Nitrite Negative (Negative) Urine Bilirubin Negative (Negative) Urine Urobilinogen Normal mg/dL (Negative) Urine Leukocyte Esterase Negative /uL (Negative) Urine RBC <1 /hpf (0 - 4) Urine Microscopic WBC < 1 /HPF (0-5) Urine Squamous Epithelial Cells None seen /hpf (<5) Urine Bacteria None seen /hpf (None Seen) Urine Glucose 4+ mg/dL (Normal) H Microbiology Microbiology Date/Time Source Procedure Growth Status 04/02/25 14:31 Blood Blood Culture - Preliminary NO GROWTH AFTER 24 HOURS OF INCUBATION. Resulted Labs and/or images reviewed: Labs reviewed by me, Image(s) reviewed by me Assessment/Plan Assessment/Plan A 69-year-old female patient; with multiple comorbidities; who presented to the emergency department after a fall. Acute metabolic/toxic/hypoxic encephalopathy due to suspected sepsis ARVIN on CKD stage IV; most likely vasomotor nephropathy Hypokalemia due to IV diuresis Suspected sepsis due to suspected COPD exacerbation Severe COPD; on home oxygen therapy; with suspected exacerbation Hypertensive heart and kidney disease with chronic diastolic and systolic heart failure, and with chronic kidney disease stage IV Acute on chronic diastolic and systolic heart failure with pulmonary congestion Diabetes mellitus type 2 Dizziness; multifactorial Recurrent falls with injuries including bruising and scratches Chronic hypoxic respiratory failure; on home oxygen Generalized weakness with generalized pain Anxiety and depression; no suicide ideation/plan Chronic pancreatic insufficiency Obesity Reviewed available lab work and imaging studies Continue IV antibiotics for now; we will stop IV antibiotics tomorrow after course of three days of IV antibiotic Continue home Creon Fall precautions Wound care onboard Physical therapy & Baby Counselor onboard Avoid nephrotoxic agents Continue oxygen therapy as indicated Replace and correct electrolytes as indicated Continue antihypertensive medications and adjust according to blood pressure monitoring Continue insulin management and adjust according to blood glucose monitoring Continue home psychiatric medications Continue IV diuresis Continue pain management as indicated Continue monitoring Possible discharge tomorrow; the patient and her daughter continue to be undecided regarding comfort care/home hospice at this time This medical document was created using an electronic medical record system with computerized dictation system. Although this document has been carefully reviewed, there might still be some phonetic and typographical errors. These areas are purely typographical due to imperfections of the software programs, and do not reflect any compromise in the patient's medical care. Plan discussed with: Patient, Daughter, Other (Nurse) My Orders Orders - SHAUNA WALTER MD Procedure Category Date Status Time Lorazepam 2mg/Ml Inj PHA 04/03/25 In Process (Ativan Inj) 11:45 Patients Own PHA 04/04/25 In Process Medication 11:30 Mechanical Soft Diet DIET 04/04/25 Transmitted Lunch Tramadol Hcl (Ultram) PHA 04/04/25 Logged 11:15 Date of Service: Apr 04, 2025 Billing Provider: SHAUNA WALTER MD Common Visit Codes: [id number] INP/OBS CARE(HIGH) SHAUNA WALTER MD Apr 04, 2025 11:44
[2025-04-04] MEDS ORDERED: ACETAMINOPHEN 500 MG TAB or CAP PO PRN (12:45)
[2025-04-04] MEDS: POTASSIUM EFFERVESENT TAB 25 MEQ PO ONE (13:30)
[2025-04-04] MEDS: ONDANSETRON HCL 4 MG/2 ML VIAL IV PRN (22:42)
[2025-04-05 01:00] VITALS: BP 138/53; PULSE 75; RESP 18; TEMP 97.9; O2SAT 100
[2025-04-05 05:00] VITALS: BP 132/63; PULSE 83; RESP 17; TEMP 97.4; O2SAT 99
[2025-04-05 06:20] LABS: Anion Gap 9 (5-15); Carbon Dioxide 25 mmol/L (20-31); Chloride 107 mmol/L (98-107); Potassium 4.0 mmol/L (3.5-5.1); Sodium 141 mmol/L (136-145)
[2025-04-05 06:21] LABS: Calcium 9.4 mg/dL (8.7-10.4); Hematocrit 35.6 % (36.0-46.0); Hemoglobin 11.8 g/dL (12.2-16.2); Mean Corpuscular Hemoglobin 29.2 pg (28.0-32.0); Mean Corpuscular Volume 88.3 fL (80.0-100.0); Nucleated Red Blood Cells % 0.3 %
[2025-04-05 06:26] LABS: BUN/Creatinine Ratio 13.5 (10.0-20.0); Blood Urea Nitrogen 15 mg/dL (9-23)
[2025-04-05 06:27] LABS: Magnesium 2.4 mg/dL (1.6-2.6)
[2025-04-05 06:28] LABS: Glucose 125 mg/dL (74-106)
[2025-04-05 08:00] VITALS: PULSE 73; O2SAT 98
[2025-04-05 09:18] VITALS: BP 142/70; PULSE 78; RESP 18; TEMP 97.6; O2SAT 98
[2025-04-05 13:00] VITALS: BP 147/77; PULSE 91; RESP 18; TEMP 97.6; O2SAT 98
--- NOTE | 2025-04-05 16:36 | DVHDS2 ---
Discharge Summary Date of Admission Apr 02, 2025 at 22:03 Date of Discharge: Apr 05, 2025 Labs/Diagnostic Data: Laboratory Results Test 04/05/25 11:27 04/05/25 04:41 04/03/25 05:39 04/02/25 17:00 POC Glucose 150 mg/dl (70-106) White Blood Count 5.6 10^3/uL (4.4-10.8) Red Blood Count 4.03 10^6/uL (4.0-5.20) Hemoglobin 11.8 g/dL (12.2-16.2) Hematocrit 35.6 % (36.0-46.0) Mean Corpuscular Volume 88.3 fL (80.0-100.0) Mean Corpuscular Hemoglobin 29.2 pg (28.0-32.0) Mean Corpuscular Hemoglobin Concent 33.1 g/dL (32.0-36.0) Red Cell Distribution Width 13.9 % (11.8-14.3) Platelet Count 256 10^3/uL (140-450) Mean Platelet Volume 8.2 fL (6.9-10.8) Neutrophils (%) (Auto) 65.4 % (37.0-80.0) Lymphocytes (%) (Auto) 19.1 % (10.0-50.0) Monocytes (%) (Auto) 9.7 % (0.0-12.0) Eosinophils (%) (Auto) 4.6 % (0.0-7.0) Basophils (%) (Auto) 1.2 % (0.0-2.0) Neutrophils # (Auto) 3.7 10 ^3/uL (1.6-8.6) Lymphocytes # (Auto) 1.1 10 ^3/uL (0.4-5.4) Monocytes # (Auto) 0.5 10 ^3/uL (0-1.3) Eosinophils # (Auto) 0.3 10 ^3/uL (0-0.8) Basophils # (Auto) 0.1 10 ^3/uL (0-0.2) Nucleated Red Blood Cells 0.3 % Sodium Level 141 mmol/L (136-145) Potassium Level 4.0 mmol/L (3.5-5.1) Chloride Level 107 mmol/L (98-107) Carbon Dioxide Level 25 mmol/L (20-31) Anion Gap 9 (5-15) Blood Urea Nitrogen 15 mg/dL (9-23) Creatinine 1.11 mg/dL (0.550-1.02) Glomerular Filtration Rate Calc 54 mL/min (>90) BUN/Creatinine Ratio 13.5 (10.0-20.0) Serum Glucose 125 mg/dL (74-106) Calcium Level 9.4 mg/dL (8.7-10.4) Magnesium Level 2.4 mg/dL (1.6-2.6) Total Bilirubin 0.2 mg/dL (0.2-1.0) Aspartate Amino Transferase (AST) 25 U/L (13-40) Alanine Aminotransferase (ALT) 18 U/L (7-40) Alkaline Phosphatase 79 U/L (46-116) Total Protein 6.5 g/dL (5.7-8.2) Albumin 4.0 g/dL (3.2-4.8) Urine Color Light-yellow (Yellow) Urine Clarity Clear (Clear) Urine pH 6.0 (5.0-9.0) Urine Specific [place] 1.012 (1.001-1.035) Urine Protein Negative (Negative) Urine Ketones Negative (Negative) Urine Blood Negative /uL (Negative) Urine Nitrite Negative (Negative) Urine Bilirubin Negative (Negative) Urine Urobilinogen Normal mg/dL (Negative) Urine Leukocyte Esterase Negative /uL (Negative) Urine RBC <1 /hpf (0 - 4) Urine Microscopic WBC < 1 /HPF (0-5) Urine Squamous Epithelial Cells None seen /hpf (<5) Urine Bacteria None seen /hpf (None Seen) Urine Glucose 4+ mg/dL (Normal) Test 04/02/25 16:08 04/02/25 14:31 Prothrombin Time 11.1 sec (9.3-11.8) Prothrombin Time INR 1.05 (0.9-1.15) Activated Partial Thromboplast Time 24.3 SEC (24.5-34.5) Lactic Acid Level 1.7 mmol/L (0.4-2.0) Other Laboratory Tests 04/05/25 04:41 Final Diagnosis/Problems List COPDe on home o2 sepsis sarthak on ckd Discharge Disposition: Home Discharge Instruct/Medications Diet: Consistent carbohydrate, Cardiac 2g Na,low cholest Activity: No Restrictions, As Tolerated Follow Up/Referral: pcp dc clinic saturday dr lackey Scheduled Acetaminophen (Tylenol), 500 MG PO QID, (Reported) Amitriptyline Hcl (Amitriptyline Hcl), 50 MG PO HS, (Reported) Apixaban Base (Eliquis), 2.5 MG PO BID Baclofen (Ed Baclofen), 20 MG PO QID, (Reported) Cephalexin Monohydrate (Cephalexin), 250 MG PO Q12HR Clopidogrel Bisulfate (Plavix), 75 MG PO DAILY Diclofenac Sodium (Topical) (Aleve Arthritis Pain), 1 % EX TID, (Reported) Docusate Sodium (Colace), 100 MG PO DAILY, (Reported) Dulaglutide (Trulicity), 1.5 MG SC QWEEKLY, (Reported) Ezetimibe (Zetia), 1 TAB PO DAILY, (Reported) Febuxostat (Uloric), 40 MG PO DAILY, (Reported) Folic Acid (Folic Acid), 1 MG PO DAILY, (Reported) Furosemide (Lasix), 40 MG PO BID Gabapentin (Gabapentin), 300 MG PO QAM, (Reported) Guaifenesin (Mucinex), 1 TAB PO BID, (Reported) Hydroxychloroquine Sulfate (Hydroxychloroquine Sulfat), 200 MG PO DAILY, (Reported) Ipratropium [place] Hfa (Atrovent Hfa), 2 PUFF INH QID, (Reported) Loratadine (Claritin), 1 TAB PO DAILY, (Reported) Lorazepam (Ativan Tablet), 0.5 MG PO QIDP, (Reported) Montelukast Sodium (Montelukast Sodium), 1 TAB PO DAILY, (Reported) Pancrelipase (Lipase-Protease- (Creon), 36,000 UNT OR DAILY, (Reported) Pantoprazole Sodium Sesquihydr (Protonix), 40 MG PO DAILY, (Reported) Rosuvastatin Calcium (Crestor), 1 TAB PO DAILY, (Reported) Tocopheryl Acetate, Dl-Alpha (Vitamin E), 180 MG PO DAILY, (Reported) Triamcinolone Acetonide (Triamcinolone Acetonide), 1 APPLIC TOP BID, (Reported) Venlafaxine Hcl (Venlafaxine Hcl Er), 1 CAP PO DAILY, (Reported) Zinc Gluconate (Zinc), 50 MG PO DAILY, (Reported) Scheduled PRN Alum & Mag Hydrox-Simethicone (Mylanta Maximum Strength 400-400-40 mg/5Ml), 1 ROXANA PO BIDP PRN Ketorolac Tromethamine (Ketorolac Tromethamine), 1 TAB PO TID PRN Methocarbamol (Methocarbamol), 500 MG PO Q8HPRN PRN for MUSCLE SPASMS, (Reported) Ondansetron HCl (Ondansetron), 8 MG PO BIDP PRN for NAUSEA / VOMITING, (Reported) Miscellaneous Medications Hydralazine Hcl (Hydralazine Hcl), 25 MG PO, (Reported) Insulin Lispro (Insulin Lispro Kwikpen), 100 UNIT SC, (Reported) Scopolamine (Scopolamine), 1 MG TD, (Reported) Discharge Statement: "Patient was advised to return to the ER or call 911 if any headaches, dizziness, shortness of breath, chest pain, abdominal pain, bleeding, fevers, or worsening of medical condition. Patient was counseled about treatment plan, medications, possible side effects, patientverbalized understanding. All questions were answered to the best of my ability. This discharge took greater then 30 minutes in planning, reviewing documentation, counseling the patient, and discussing with other team members." ASSESSMENT ASSESSMENT Assessment COPDe on home o2 sepsis sarthak on ckd Date of Service: Apr 05, 2025 Billing Provider: ANNIE HECTOR MD Common Visit Codes: [id number] DISCH DAY >30min ANNIE HECTOR MD Apr 05, 2025 16:36
[2025-04-05 16:53] VITALS: BP 140/82; PULSE 90; RESP 18; TEMP 97.7; O2SAT 98
[2025-04-06] MEDS ORDERED: LEVO500T91 PO (10:18)
== END 2025-04-05 18:04 | disposition home or self-care (01) | DRG 871 ==
LOC: EDBD 12:59 → ER 12:59 → OVERFLOW 22:03 → TELE-EAST 04-03 23:25
PROVIDERS: ADMIT Student in an Organized Health Care Education/Training Program; ATTEND Student in an Organized Health Care Education/Training Program
DX: A41.9 Sepsis, unspecified organism (principal); G92.8 Other toxic encephalopathy; I50.43 Acute on chronic combined systolic (congestive) and diastolic (congestive) heart failure; N17.0 Acute kidney failure with tubular necrosis; G93.1 Anoxic brain damage, not elsewhere classified; I13.0 Hypertensive heart and chronic kidney disease with heart failure and stage 1 through stage 4 chronic kidney disease, or unspecified chronic kidney disease; N18.4 Chronic kidney disease, stage 4 (severe); J96.11 Chronic respiratory failure with hypoxia; J44.1 Chronic obstructive pulmonary disease with (acute) exacerbation; E11.65 Type 2 diabetes mellitus with hyperglycemia; E11.22 Type 2 diabetes mellitus with diabetic chronic kidney disease; F32.A Depression, unspecified; F41.9 Anxiety disorder, unspecified; E66.9 Obesity, unspecified; K86.89 Other specified diseases of pancreas; E78.5 Hyperlipidemia, unspecified; M10.9 Gout, unspecified; F17.200 Nicotine dependence, unspecified, uncomplicated; R29.6 Repeated falls; E87.6 Hypokalemia; Z68.30 Body mass index [BMI] 30.0-30.9, adult; Z86.73 Personal history of transient ischemic attack (TIA), and cerebral infarction without residual deficits; Z88.6 Allergy status to analgesic agent; Z88.1 Allergy status to other antibiotic agents; Z91.014 Allergy to mammalian meats; Z91.0120 Allergy to eggs, unspecified; Z88.5 Allergy status to narcotic agent; Z88.0 Allergy status to penicillin; Z88.2 Allergy status to sulfonamides; Z88.8 Allergy status to other drugs, medicaments and biological substances; Z91.018 Allergy to other foods; Z98.61 Coronary angioplasty status; Z99.81 Dependence on supplemental oxygen
CPT/HCPCS: 36415; 70450; 71045; 80048; 80053; 81001; 82962; 83605; 83735; 85025; 85610; 85730; 87040; 93005; 96361; 96365; 96375; 97110; 97116; 97163; 97530; G0378; J1815; J2405; J3490